=== PATIENT | female | born 1945 | race Caucasian/White ===

== ENCOUNTER → 2018-02-18 14:44 | Outpatient (CLI) | payer MEDICARE, BC, SELFPAY | PROVIDERS: PCP Family Medicine; Visit Provider Family Medicine | DX: M81.0 Age-related osteoporosis without current pathological fracture (principal); Z78.0 Asymptomatic menopausal state; E07.9 Disorder of thyroid, unspecified; E11.9 Type 2 diabetes mellitus without complications; Z82.62 Family history of osteoporosis | CPT/HCPCS: 77080 ==

== ENCOUNTER 2018-05-25 18:29 | Emergency (ER) | payer MEDICARE, BC, SELFPAY ==
[2018-05-25 18:45] VITALS: BP 169/84; PULSE 69; RESP 20; TEMP 36.9; O2SAT 96
--- NOTE | 2018-05-25 19:17 | DI.RAD.S_ITS ---
PROCEDURE: XR ACUTE ABDOMEN SERIES INDICATIONS: nausea/abdominal pain/constipation TECHNIQUE: One view chest and two views of the abdomen were acquired. COMPARISON: None. FINDINGS: Surgical changes and devices: None. Chest: Lungs are clear. The lung volumes are large and the diaphragms are flattened suggesting emphysema. Heart size is normal. No pleural effusions. No pneumoperitoneum. Abdomen: Bowel gas pattern is normal. No suspicious calcifications. Visualized solid organ contours appear normal. Bones: No suspicious bony lesions. IMPRESSION: 1. No acute cardiopulmonary findings. Emphysematous change. 2. No acute intra-abdominal findings. Dictated by: Corin Nunez M.D. on 05/25/2018 at 20:05 Approved by: Corin Nunez M.D. on 05/25/2018 at 20:06
[2018-05-25 19:36] LABS: Add Manual Diff / Slide Review NO; Basophils Percent Auto 0.9 % (0-2); Eosinophils Percent Auto 1.3 % (2-4); Hematocrit 38.1 % (36-46); Hemoglobin 12.8 g/dL (12.0-16.0); Lymphocytes Percent Auto 27.2 % (25-40); Mean Corpuscular HGB Conc 33.6 % (30-36); Mean Corpuscular Hemoglobin 29.5 PG (26-34); Monocytes Percent Auto 6.9 % (3-14); Neutrophils Absolute Auto 6600 /uL (3000-5900); Neutrophils Percent Auto 63.7 % (50-75); Platelet Count 348 X10^3/uL (150-400); Red Blood Cell Count 4.33 X10^6/uL (4.0-5.2); Red Cell Distribution Width 13.7 % (11.6-14.8); White Blood Cell Count 10.4 X10^3/uL (4.5-11.0)
[2018-05-25 19:41] VITALS: BP 183/86
[2018-05-25 19:43] LABS: Bacteria Urine None Seen; RBC Urine None Seen (0-5/HPF); WBC Urine None Seen (0-5/HPF)
[2018-05-25 19:44] LABS: Appearance Urine UA CLEAR; Bilirubin Urine UA NEGATIVE (NEGATIVE); Color Urine UA YELLOW; Glucose Urine UA NEGATIVE (Normal); Ketones Urine UA NEGATIVE (NEGATIVE); Leukocyte Esterase Urine UA NEGATIVE (NEGATIVE); Nitrite Urine UA NEGATIVE (Negative); Occult Blood Urine UA NEGATIVE (Negative); Protein Urine UA NEGATIVE (Negative); Urobilinogen Urine UA 0.2 E.U./dL (0.2)
[2018-05-25 19:50] LABS: Culture Indicated Urine Cult Not Indicated; Squamous Epithelial Cell Urine 0-1 /HPF; Urine Comments Microscopic Normal
[2018-05-25 19:52] LABS: Alanine Aminotransferase 20 IU/L (9-52); Albumin 4.9 g/dL (3.5-5.0); Albumin Globulin Ratio 1.3 (1.0-2.8); Alkaline Phosphatase 87 U/L (38-126); Aspartate Aminotransferase 29 IU/L (14-36); Bilirubin Total 0.5 mg/dL (0.2-1.3); Blood Urea Nitrogen 14 mg/dL (7-17); Carbon Dioxide 20 mmol/L (22-32); Chloride 102 mmol/L (98-107); Estimated Glomerular Filt Rate > 60.0 mL/min (>60); Globulin 3.8 g/dL (1.7-4.1); Glucose 123 mg/dL (80-110); HEMOLYSIS 36 (0-50); Potassium 4.3 mmol/L (3.4-5.1); Sodium 138 mmol/L (137-145); Total Protein 8.7 g/dL (6.3-8.2)
[2018-05-25 19:53] VITALS: PULSE 70; RESP 14; O2SAT 98
[2018-05-25 20:06] LABS: Troponin I < 0.012 ng/mL (0.01-0.034)
--- NOTE | 2018-05-25 20:13 | ED_ITS ---
HPI - General Adult General Chief complaint: Hypertension Stated complaint: elevated BP,stomach pain,back pain,constipated Time Seen by Provider: 05/25/18 20:10 Source: patient Mode of arrival: ambulatory Limitations: no limitations History of Present Illness HPI narrative: patient is a 72-year-old female presents with a variety of complaints. Her biggest complaint seems to be her right-sided back pain which started today. It hurts every time she breathes or moves. She denies chest pain or shortness of breath. She says sometimes she takes a shallow breath because a hurts. She denies any injury. She also has his abdominal discomfort. she feels like she has been constipated she has been taking MiraLax she had bowel movement which she said was not normal but she is moving things through. She was followed by GI at [facility] for some time. She feels like her abdomen is slightly bloated she denies any previous surgery nausea or vomiting. She has not had any fever or chills. Related Data Home Medications Medication Instructions Recorded Confirmed warfarin mg PO SEE INSTRUCTIONS #0 05/02/11 LEVOTHYROXINE SODIUM (SYNTHROID) 0.75 mcg PO Q DAY #0 10/22/11 amlodipine [Norvasc] 5 mg PO QDAY #0 06/29/17 calcium carbonate-vitamin D3 PO TID #0 06/29/17 [Oyster Shell Calcium-Vit D3] pantoprazole 20 mg PO QDAY #0 06/29/17 Previous Rx's Medication Instructions Recorded tramadol 0 tab PO Q6HP PRN #20 tab 06/29/17 Allergies Allergy/AdvReac Type Severity Reaction Status Date / Time bacitracin Allergy Unknown Unverified 11/04/17 12:10 [From NEOSPORIN ([id number])] codeine [CODEINE] Allergy Unknown Unverified 11/04/17 12:10 morphine [MORPHINE] Allergy Unknown Unverified 11/04/17 12:10 neomycin Allergy Unknown Unverified 11/04/17 12:10 [From NEOSPORIN ([id number])] polymyxin B Allergy Unknown Unverified 11/04/17 12:10 [From NEOSPORIN ([id number])] Review of Systems Review of Systems All systems reviewed & are unremarkable except as noted in HPI and below Constitutional Denies chills, Denies fatigue, Denies fever(s), Denies lethargy and Denies weakness Cardiovascular Reports as per HPI Respiratory Reports as per HPI Gastrointestinal Gastrointestinal: Reports as per HPI Musculoskeletal Denies back pain, Denies muscle weakness, Denies numbness and Denies tingling Integumentary/Breasts Denies pruritus, Denies erythema, Denies rash and Denies wounds Neurologic Denies numbness, Denies tingling and Denies weakness Endocrine Denies fatigue and Denies flushing [facility] Medical History Hyperlipidemia (Acute) Hypertension (Acute) Exam Initial Vital Signs Initial Vital Signs: Vital Signs Temperature 98.4 F 05/25/18 18:45 Pulse Rate 69 05/25/18 18:45 Respiratory Rate 20 05/25/18 18:45 Blood Pressure 169/84 H 05/25/18 18:45 Pulse Oximetry 96 05/25/18 18:45 GENERAL: Alert well-appearing elderly female. HEENT: Head atraumatic,EOMI, pupils reactive, face symmetric, BACK: No midline vertebral tenderness no step-offs no sign of trauma she is tender on her right thoracic rib area. CARDIOVASCULAR: Regular rate and rhythm without murmurs, rubs or gallops. RESPIRATORY: Breath sounds equal bilaterally, no wheezes rales or rhonchi. ABDOMEN: Soft, Slightly distended no guarding no rebound nontender no right upper quadrant pain : No CVA tenderness EXTREMITIES: Normal range of motion, no clubbing or edema. Neurovascularly intact NEUROLOGICAL: Alert and oriented x4.Normal gait and speech. Cranial nerves II through XII grossly intact. SKIN: Warm, dry, no laceration, no petechiae, no rashes or lesions. Course Orders Ordered: Discontinued Medications Acetaminophen (Tylenol) 650 mg PO NOW ONE Stop: 05/25/18 20:40 Last Admin: 05/25/18 21:02 Dose: 650 mg Vital Signs - 8 hr 05/25/18 18:45 05/25/18 19:41 05/25/18 19:53 Temperature 98.4 F Pulse Rate 69 70 Respiratory Rate 20 14 Blood Pressure 169/84 H Blood Pressure [Right Arm] 183/86 H Pulse Oximetry 96 98 Medical Decision Making Lab Data Lab results reviewed: Yes I reviewed the patient's lab results. Result diagrams: 05/25/18 19:22 05/25/18 19:22 Lab Results 05/25/18 05/25/18 05/25/18 Range/Units 19:22 19:22 19:22 WBC 10.4 (4.5-11.0) X10^3/uL RBC 4.33 (4.0-5.2) X10^6/uL Hgb 12.8 (12.0-16.0) g/dL Hct 38.1 (36-46) % MCV 88.0 (80-100) fL MCH 29.5 (26-34) PG MCHC 33.6 (30-36) % RDW 13.7 (11.6-14.8) % Plt Count 348 (150-400) X10^3/uL Neut % (Auto) 63.7 (50-75) % Lymph % (Auto) 27.2 (25-40) % Grant % (Auto) 6.9 (3-14) % Eos % (Auto) 1.3 L (2-4) % Baso % (Auto) 0.9 (0-2) % Neut # (Auto) 6600 H (4957-8565) /uL Sodium 138 (137-145) mmol/L Potassium 4.3 (3.4-5.1) mmol/L Chloride 102 (98-107) mmol/L Carbon Dioxide 20 L (22-32) mmol/L BUN 14 (7-17) mg/dL Creatinine 0.70 (0.52-1.04) mg/dL Estimated GFR > 60.0 (>60) mL/min BUN/Creatinine Ratio 20.0 (6-22) Glucose 123 H (80-110) mg/dL Calcium 10.0 (8.4-10.2) mg/dL Total Bilirubin 0.5 (0.2-1.3) mg/dL AST 29 (14-36) IU/L ALT 20 (9-52) IU/L Alkaline Phosphatase 87 (38-126) U/L Troponin I < 0.012 (0.01-0.034) ng/mL Total Protein 8.7 H (6.3-8.2) g/dL Albumin 4.9 (3.5-5.0) g/dL Globulin 3.8 (1.7-4.1) g/dL Albumin/Globulin Ratio 1.3 (1.0-2.8) Lipase 155 (23-300) U/L Urine Color Urine Appearance Urine pH (4.5-8.0) Ur Specific [place] (1.000-1.035) Urine Protein (Negative) Urine Glucose (UA) (Normal) g/dL Urine Ketones (NEGATIVE) Urine Occult Blood (Negative) Urine Nitrate (Negative) Urine Bilirubin (NEGATIVE) Urine Urobilinogen (0.2) E.U./dL Ur Leukocyte Esterase (NEGATIVE) Urine RBC (0-5/HPF) Urine WBC (0-5/HPF) Ur Squamous Epith Cells Urine Bacteria (None) Ur Culture Indicated? Micro UA Comment 05/25/18 Range/Units Unknown WBC (4.5-11.0) X10^3/uL RBC (4.0-5.2) X10^6/uL Hgb (12.0-16.0) g/dL Hct (36-46) % MCV (80-100) fL MCH (26-34) PG MCHC (30-36) % RDW (11.6-14.8) % Plt Count (150-400) X10^3/uL Neut % (Auto) (50-75) % Lymph % (Auto) (25-40) % Grant % (Auto) (3-14) % Eos % (Auto) (2-4) % Baso % (Auto) (0-2) % Neut # (Auto) (6995-1366) /uL Sodium (137-145) mmol/L Potassium (3.4-5.1) mmol/L Chloride (98-107) mmol/L Carbon Dioxide (22-32) mmol/L BUN (7-17) mg/dL Creatinine (0.52-1.04) mg/dL Estimated GFR (>60) mL/min BUN/Creatinine Ratio (6-22) Glucose (80-110) mg/dL Calcium (8.4-10.2) mg/dL Total Bilirubin (0.2-1.3) mg/dL AST (14-36) IU/L ALT (9-52) IU/L Alkaline Phosphatase (38-126) U/L Troponin I (0.01-0.034) ng/mL Total Protein (6.3-8.2) g/dL Albumin (3.5-5.0) g/dL Globulin (1.7-4.1) g/dL Albumin/Globulin Ratio (1.0-2.8) Lipase (23-300) U/L Urine Color Yellow Urine Appearance Clear Urine pH 7.0 (4.5-8.0) Ur Specific [place] 1.010 (1.000-1.035) Urine Protein Negative (Negative) Urine Glucose (UA) Negative (Normal) g/dL Urine Ketones Negative (NEGATIVE) Urine Occult Blood Negative (Negative) Urine Nitrate Negative (Negative) Urine Bilirubin Negative (NEGATIVE) Urine Urobilinogen 0.2 (0.2) E.U./dL Ur Leukocyte Esterase Negative (NEGATIVE) Urine RBC None seen (0-5/HPF) Urine WBC None seen (0-5/HPF) Ur Squamous Epith Cells 0-1 /hpf Urine Bacteria None seen (None) Ur Culture Indicated? Cult not indicated Micro UA Comment Microscopic normal Imaging Data XR chest ab: Radiologist's impression: PROCEDURE: XR ACUTE ABDOMEN SERIES INDICATIONS: nausea/abdominal pain/constipation TECHNIQUE: One view chest and two views of the abdomen were acquired. COMPARISON: None. FINDINGS: Surgical changes and devices: None. Chest: Lungs are clear. The lung volumes are large and the diaphragms are flattened suggesting emphysema. Heart size is normal. No pleural effusions. No pneumoperitoneum. Abdomen: Bowel gas pattern is normal. No suspicious calcifications. Visualized solid organ contours appear normal. Bones: No suspicious bony lesions. IMPRESSION: 1. No acute cardiopulmonary findings. Emphysematous change. 2. No acute intra-abdominal findings. Dictated by: Corin Nunez M.D. on 05/25/2018 at 20:05 CT scan - abdomen: Radiologist's impression: PROCEDURE: CT ABDOMEN PELVIS W CON INDICATIONS: Abdomen bloating and pain. TECHNIQUE: After the administration of intravenous contrast, 5 mm thick sections acquired from the diaphragm to the symphysis. 5 mm coronal and sagittal reformats were acquired. For radiation dose reduction, the following was used: automated exposure control, adjustment of mA and/or kV according to patient size. COMPARISON: [facility], CT, CT ABD PELVIS W CON, 09/05/2016, 19:01. [facility], CT, ABDOMEN WITH CONTRAST, 11/07/2011, 11:57. [facility], CT, ABDOMEN/PELVIS WITH CONTRAST, 10/04/2016, 18:28. FINDINGS: Image quality: Excellent. ABDOMEN: Lung bases: Lung bases are clear. Heart size is normal. Solid organs: Liver is normal in size and enhancement. Gallbladder is mildly contracted. Biliary system is non dilated. Pancreas enhances normally. Spleen is normal in size and enhancement. There is trace calcification of the lateral aspect of the splenic capsule unchanged from the study dated . No adrenal nodules. Kidneys demonstrate normal size and enhancement, without hydronephrosis. Peritoneum and bowel: Bowel loops demonstrate normal wall thickness and caliber. The appendix is not visualized; however there is no discrete right lower quadrant fluid or fat stranding to suggest acute appendicitis. There are scattered sigmoid diverticula. No evidence for diverticulitis. No free fluid or air. Nodes and vessels: No retroperitoneal or mesenteric adenopathy by size criteria. Aorta and inferior vena cava are normal in size. There are scattered atheromatous calcifications throughout the aorta and iliac arteries bilaterally. Miscellaneous: No ventral hernias. PELVIS: Genitourinary: Bladder wall thickness is normal. Miscellaneous: No inguinal hernias or adenopathy. Bones: No suspicious bony lesions. Severe wedge compression deformities are redemonstrated throughout the thoracolumbar spine. These are similar in extent to the study dated 09/05/16. IMPRESSION: 1. No acute intra-abdominal findings. The appendix is not visualized; however there are no ancillary findings to suggest acute appendicitis. 2. Diverticulosis. No acute diverticulitis. Dictated by: Corin Nunez M.D. on 05/25/2018 at 21:05 Approved by: Corin Nunez M.D. on 05/25/2018 at 21:13 MDM Narrative Medical decision making narrative: Patient overall is feeling better. pain is reproducible to touch worse with movement and breathing consistent with musculoskeletal. She has had chronic ongoing abdominal issues have been worked up by GI Discharge Plan Departure Patient Disposition: Home Clinical Impression: Acute costochondritis Discharge Date/Time: 05/25/18 21:55 Interventions: ED Discharge Assessment Last Done: 05/25/18 21:55 Instructions: Costochondritis Activity Restrictions/Additional Instructions: *You have been diagnosed with costochondritis *What to do: back pain is likely related to a rib strain and inflammation. blood work, chest x-ray and CT scan of abdomen are reassuring *Continue to take medications as directed Tylenol 650 mg every 4 hr if needed for pain *Follow up with your primary care provider in 2-3 days *Return to ER if you should have worsening pain, fever, heart palpitations, any new, worsening or concerning symptoms Prescriptions: No Action warfarin 4 MG tablet PO SEE INSTRUCTIONS Qty: 0 RF: 0 LEVOTHYROXINE SODIUM (SYNTHROID) 0.75 mcg PO Q DAY Qty: 0 RF: 0 pantoprazole 20 MG tablet,delayed release (DR/EC) 20 mg PO QDAY Qty: 0 RF: 0 amlodipine [Norvasc] 5 MG tablet 5 mg PO QDAY Qty: 0 RF: 0 calcium carbonate-vitamin D3 [Oyster Shell Calcium-Vit D3] 500 mg(1,250mg) - 200 unit Tablet PO TID Qty: 0 RF: 0 tramadol 50 MG tablet PO Q6HP PRNQty: 20 RF: 0 Referrals: Americo Fermin MD [Primary Care Provider] -
--- NOTE | 2018-05-25 20:39 | DI.CT.S_ITS ---
PROCEDURE: CT ABDOMEN PELVIS W CON INDICATIONS: Abdomen bloating and pain. TECHNIQUE: After the administration of intravenous contrast, 5 mm thick sections acquired from the diaphragm to the symphysis. 5 mm coronal and sagittal reformats were acquired. For radiation dose reduction, the following was used: automated exposure control, adjustment of mA and/or kV according to patient size. COMPARISON: [facility], CT, CT ABD PELVIS W CON, 09/05/2016, 19:01. [facility], CT, ABDOMEN WITH CONTRAST, 11/07/2011, 11:57. [facility], CT, ABDOMEN/PELVIS WITH CONTRAST, 10/04/2016, 18:28. FINDINGS: Image quality: Excellent. ABDOMEN: Lung bases: Lung bases are clear. Heart size is normal. Solid organs: Liver is normal in size and enhancement. Gallbladder is mildly contracted. Biliary system is non dilated. Pancreas enhances normally. Spleen is normal in size and enhancement. There is trace calcification of the lateral aspect of the splenic capsule unchanged from the study dated . No adrenal nodules. Kidneys demonstrate normal size and enhancement, without hydronephrosis. Peritoneum and bowel: Bowel loops demonstrate normal wall thickness and caliber. The appendix is not visualized; however there is no discrete right lower quadrant fluid or fat stranding to suggest acute appendicitis. There are scattered sigmoid diverticula. No evidence for diverticulitis. No free fluid or air. Nodes and vessels: No retroperitoneal or mesenteric adenopathy by size criteria. Aorta and inferior vena cava are normal in size. There are scattered atheromatous calcifications throughout the aorta and iliac arteries bilaterally. Miscellaneous: No ventral hernias. PELVIS: Genitourinary: Bladder wall thickness is normal. Miscellaneous: No inguinal hernias or adenopathy. Bones: No suspicious bony lesions. Severe wedge compression deformities are redemonstrated throughout the thoracolumbar spine. These are similar in extent to the study dated 09/05/16. IMPRESSION: 1. No acute intra-abdominal findings. The appendix is not visualized; however there are no ancillary findings to suggest acute appendicitis. 2. Diverticulosis. No acute diverticulitis. Dictated by: Corin Nunez M.D. on 05/25/2018 at 21:05 Approved by: Corin Nunez M.D. on 05/25/2018 at 21:13
[2018-05-25 20:51] LABS: Lipase 155 U/L (23-300)
[2018-05-25] MEDS: ACETAMINOPHEN 325 MG TABLET 650 MG PO (21:02)
[2018-05-25 21:48] VITALS: BP 161/77; PULSE 75; RESP 24; O2SAT 96
== END 2018-05-25 21:55 | disposition home or self-care (01) ==
PROVIDERS: Emergency Provider Emergency Medicine; PCP Family Medicine
DX: M94.0 Chondrocostal junction syndrome [Tietze] (principal)
CPT/HCPCS: 36591; 74022; 74177; 80053; 81001; 83690; 84484; 85025; 93005; 99283; 99285; Q9967

== ENCOUNTER → 2018-10-15 16:18 | Outpatient (REF) | payer MEDICARE, BC, SELFPAY ==
[2018-10-15 16:34] LABS: INR 2.3 (0.9-1.3); Prothrombin Time 26.9 SECONDS (10.1-12.7)
== END ==
LOC: LAB 16:18
PROVIDERS: PCP Family Medicine; Visit Provider Family Medicine
DX: Z79.01 Long term (current) use of anticoagulants (principal)
CPT/HCPCS: 85610

== ENCOUNTER → 2018-11-10 11:14 | Outpatient (REF) | payer MEDICARE, OTHER, SELFPAY ==
[2018-11-10 11:29] LABS: INR 3.6 (0.9-1.3)
== END ==
LOC: LAB 11:14
PROVIDERS: PCP Family Medicine; Visit Provider Family Medicine
DX: Z79.01 Long term (current) use of anticoagulants (principal); J02.9 Acute pharyngitis, unspecified
CPT/HCPCS: 85610

== ENCOUNTER → 2018-12-08 11:52 | Outpatient (ROUT) | payer MEDICARE, OTHER, SELFPAY ==
[2018-12-08 12:33] LABS: INR 3.1 (0.9-1.3); Prothrombin Time 36.1 SECONDS (10.1-12.7)
== END ==
PROVIDERS: PCP Family Medicine; Visit Provider Family Medicine
DX: Z79.01 Long term (current) use of anticoagulants (principal)
CPT/HCPCS: 85610

== ENCOUNTER → 2018-12-17 09:51 | Outpatient (CLI) | payer MEDICARE, OTHER, SELFPAY ==
--- NOTE | 2018-12-17 | DI.MG.S_ITS ---
BILATERAL DIGITAL SCREENING MAMMOGRAM 3D/2D WITH CAD: 12/17/2018 CLINICAL: Routine screening. Comparison is made to exams dated: 08/28/2017 mammogram, 08/22/2016 mammogram, 08/17/2015 mammogram, and 08/16/2014 mammogram - [facility]. The tissue of both breasts is heterogeneously dense. This may lower the sensitivity of mammography. Current study was also evaluated with a Computer Aided Detection (CAD) system. There are benign vascular calcifications in both breasts. No significant masses, calcifications, or other findings are seen in either breast. There has been no significant interval change. IMPRESSION: There is no mammographic evidence of malignancy. A 1 year screening mammogram is recommended. This exam was interpreted at Station ID: [id number]. NOTE: For mammograms, a report in lay terms will be sent to the patient. Approximately 15% of breast malignancies will not be visualized mammographically. In the management of a palpable breast mass, a negative mammogram must not discourage biopsy of a clinically suspicious lesion. Electronically Signed By: Danny sabillon/divina:12/17/2018 12:05:23 letter sent: Normal Exam ACR BI-RADS Category 2: Benign Finding(s) [id number]
== END ==
PROVIDERS: PCP Family Medicine; Visit Provider Family Medicine
DX: Z12.31 Encounter for screening mammogram for malignant neoplasm of breast (principal)
CPT/HCPCS: 77063; 77067

== ENCOUNTER → 2019-03-08 13:34 | Outpatient (CLI) | payer MEDICARE, OTHER, SELFPAY ==
[2019-03-11 14:10] LABS: Protein C Activity 9 % normal (70-180)
[2019-03-11 20:00] LABS: ANA Screen, IFA Positive (Negative); ANA Titer 1:40 titer (<1:40)
[2019-03-12 17:00] LABS: Cardiolipin Ab IgA < 11 APL; Cardiolipin Ab IgG < 14 GPL; Cardiolipin Ab IgM < 12 MPL; PTT-LA Screen 44 seconds (< OR = 40); dRVVT Screen 57 seconds (< OR = 45)
== END ==
PROVIDERS: PCP Internal Medicine; Visit Provider Internal Medicine
DX: I26.99 Other pulmonary embolism without acute cor pulmonale (principal)
CPT/HCPCS: 36415; 81240; 81241; 85303; 85306; 85597; 85613; 85730; 86038; 86147

== ENCOUNTER → 2019-05-20 12:36 | Outpatient (CLI) | payer MEDICARE, OTHER, SELFPAY ==
[2019-05-24 16:10] LABS: Protein C Activity 107 % normal (70-180)
[2019-05-25 02:55] LABS: Cardiolipin Ab IgA <11 APL; Cardiolipin Ab IgG <14 GPL; Cardiolipin Ab IgM <12 MPL
[2019-05-26 16:14] LABS: PTT-LA Screen 36 seconds (< OR = 40)
[2019-05-27 14:41] LABS: dDRVVT Screen 46 seconds (< OR = 45)
== END ==
PROVIDERS: PCP Internal Medicine; Visit Provider Internal Medicine
DX: I26.99 Other pulmonary embolism without acute cor pulmonale (principal)
CPT/HCPCS: 36415; 85303; 85306; 85597; 85613; 85730; 86147

== ENCOUNTER 2019-05-31 16:36 | Emergency (ER) | payer MEDICARE, OTHER, SELFPAY ==
[2019-05-31 16:47] VITALS: BP 192/90; PULSE 82; RESP 14; TEMP 36.7; O2SAT 97
[2019-05-31 17:26] LABS: Add Manual Diff / Slide Review NO; Basophils Absolute Auto 100 /uL (0-100); Eosinophils Absolute Auto 200 /uL (0-450); Eosinophils Percent Auto 2.2 % (2-4); Hematocrit 36.6 % (36-46); Hemoglobin 12.3 g/dL (12.0-16.0); Lymphocytes Absolute Auto 2200 /uL (1100-4500); Lymphocytes Percent Auto 21.2 % (25-40); Mean Corpuscular HGB Conc 33.6 % (30-36); Mean Corpuscular Hemoglobin 29.4 PG (26-34); Mean Corpuscular Volume 87.7 fL (80-100); Monocytes Absolute Auto 600 /uL (0-900); Neutrophils Absolute Auto 7200 /uL (1500-7000); Neutrophils Percent Auto 69.6 % (50-75); Platelet Count 339 X10^3/uL (150-400); Red Blood Cell Count 4.17 X10^6/uL (4.0-5.2); Red Cell Distribution Width 13.5 % (11.6-14.8); White Blood Cell Count 10.4 X10^3/uL (4.5-11.0)
--- NOTE | 2019-05-31 17:30 | ED_ITS ---
HPI - Dizziness <Halima Lewis, DO - Last Filed: 06/01/19 07:16> General Chief Complaint: Dizziness Stated Complaint: DIZZY WEAKNESS THROWING UP Time Seen by Provider: 05/31/19 17:13 Source: patient and family Mode of arrival: Wheelchair Limitations: no limitations History of Present Illness HPI Narrative: This is a 73-year-old female comes to the emergency department with feeling dizzy. She describes vertigo like symptoms with the room spinning particularly when she moves her head. She has had symptoms on and off for the past month. First episode was a month ago lasted several days and then went away. She also describes an episode of garbled speech that was about a month ago for a couple minutes. She states she has not had any more that but sometimes feels like she has to concentrate harder on what she needs to say. She has a headache today but she describes it is just feeling sort of funny, she does not describe it as severe. She feels weak but in both legs and in her arms. But she states she feels weaker in her legs and her arms. She does not appreciate any weakness on her right versus left. Denies any shortness of breath, denies any chest pain or pressure. She has felt nauseated and vomited on her way to the hospital denies any issues with abdominal pain, no diarrhea, no constipation. No urinary symptoms. On May 17 she had some sinusitis/bronchitis symptoms and was on amoxicillin which she finished yesterday. She felt a little bit worse today, sort of lightheaded like the room was spinning when she moves her head. She has a history of hypothyroid, pre diabetes with a hemoglobin A1c of 5.9, hypertension. Patient used to be on warfarin for PE. This was after surgery she developed a blood clot in the pulmonary emboli. She was on the Coumadin for several years and her primary care on all elected to stop it after evaluating her for genetic causes of her PE which she states were all negative. Related Data Home Medications Medication Instructions Recorded Confirmed levothyroxine 75 mcg PO DAILY #0 10/22/11 05/31/19 amlodipine [Norvasc] 5 mg PO DAILY #0 06/29/17 05/31/19 Probiotic 1 cap PO DAILY 05/31/19 05/31/19 acetaminophen 325 mg PO PRN PRN MDD 4000 mg 05/31/19 05/31/19 atenolol 50 mg PO BID 05/31/19 05/31/19 calcium citrate 1,000 mg PO DAILY 05/31/19 05/31/19 cholecalciferol (vitamin D3) 1,000 unit PO QPM 05/31/19 05/31/19 [Vitamin D3] losartan 100 mg PO QPM 05/31/19 05/31/19 metformin 1,000 mg PO DAILY 05/31/19 05/31/19 omeprazole magnesium [Prilosec OTC] 20 mg PO DAILY 05/31/19 05/31/19 Previous Rx's Medication Instructions Recorded meclizine 25 mg PO TID PRN #14 tab 05/31/19 Allergies Allergy/AdvReac Type Severity Reaction Status Date / Time bacitracin Allergy Unknown Verified 05/31/19 17:29 [From NEOSPORIN ([id number])] codeine [CODEINE] Allergy Unknown Verified 05/31/19 17:29 morphine [MORPHINE] Allergy Unknown Verified 05/31/19 17:29 neomycin Allergy Unknown Verified 05/31/19 17:29 [From NEOSPORIN ([id number])] polymyxin B Allergy Unknown Verified 05/31/19 17:29 [From NEOSPORIN ([id number])] Review of Systems <Halima Lewis DO - Last Filed: 06/01/19 07:16> Review of Systems ROS Unobtainable: All systems reviewed & are unremarkable except as noted in HPI and below Patient History <Halima Lewis DO - Last Filed: 06/01/19 07:16> Medical History (Updated 05/31/19 @ 22:34 by Ralph Thomson DO) Hyperlipidemia (Acute) Hypertension (Acute) Hypothyroid (Acute) Social History (Updated 05/31/19 @ 17:34 by Halima Lewis DO) marital status: Smoking Status: Never smoker substance use type: does not use Substance Use Type: does not use Exam <Halima Lewis DO - Last Filed: 06/01/19 07:16> Narrative Exam Narrative: GEN: well nourished, well appearing elderly, alert and oriented x 3, patient appears to be in mild distress. HEENT: Atraumatic, pupils are equal round reactive to light, extraocular movements are intact, no nystagmus, nares are clear, TMs are clear with no fluid, there is no conjunctival pallor. Throat is clear without any exudates, erythema, tonsillar enlargement or uvular deviation, no facial droop. HEART: Regular rate and rhythm without murmur, clicks, rubs. Pulses are equal in upper and lower extremities LUNGS:Lungs clear to auscultation, no wheezes, rales, crackles, chest moves symmetrically ABD:bowel sounds normal, soft, non-tender, no guarding, rebound, rigidity, no masses noted, no hepatosplenomegaly :No CVA tenderness MSCL: Non-tender, no muscle atrophy, muscles strength 5/5 upper and lower extremities, full range of motion NEURO:CN 2-12 intact, sensation normal, reflexes 2/4 upper and lower extremities. finger nose finger test normal, heel devlin test normal SKIN: no rash, no petechiae. Initial Vital Signs Initial Vital Signs: Vital Signs Temperature 98.1 F 05/31/19 16:47 Pulse Rate 82 05/31/19 16:47 Respiratory Rate 14 05/31/19 16:47 Blood Pressure 192/90 H 05/31/19 16:47 Pulse Oximetry 97 05/31/19 16:47 <Ralph Thomson, DO - Last Filed: 05/31/19 22:35> Initial Vital Signs Initial Vital Signs: Vital Signs Temperature 98.1 F 05/31/19 16:47 Pulse Rate 82 05/31/19 16:47 Respiratory Rate 14 05/31/19 16:47 Blood Pressure 192/90 H 05/31/19 16:47 Pulse Oximetry 97 05/31/19 16:47 Scores <Halima Lewis, DO - Last Filed: 06/01/19 07:16> NIH Stroke Scale Level of Conciousness: Alert, keenly responsive Ask month/age: Answers both questions correctly. Open/close eyes, close hand: Performs both tasks correctly Best gaze horizontal: Normal Visual may[place]: No visual loss Facial palsy: Normal symetrical movement Left arm drift: No drift for full 10 sec Right arm drift: No drift for full 10 sec Left leg drift: No drift for full 10 sec Right leg drift: No drift for full 10 sec Limb ataxia: Absent Sensory on face/arms/legs: Normal, no sensory loss Best language: No aphasia, normal Dysarthria: Normal Extinction or inattention: No abnormality Total NIH Stroke scale score: 0 Course <Halima Lewis DO - Last Filed: 06/01/19 07:16> Orders Ordered: Discontinued Medications Sodium Chloride (Normal Saline 0.9%) 1,000 mls @ 1,000 mls/hr IV BOLUS ONE Stop: 05/31/19 18:26 Last Infusion: 05/31/19 19:37 Dose: 0 mls/hr Documented by: Admin: 05/31/19 17:59 Dose: 1,000 mls/hr Documented by: CM Meclizine HCl (Antivert) 25 mg PO NOW ONE Stop: 05/31/19 19:19 Last Admin: 05/31/19 19:41 Dose: 25 mg Documented by: JIMMY Ondansetron HCl (Zofran) 4 mg IV NOW ONE Stop: 05/31/19 17:28 Last Admin: 05/31/19 18:00 Dose: 4 mg Documented by: CM Ondansetron HCl (Zofran Odt Prepack) 1 bottle MISC SEEINSTR ONE Stop: 05/31/19 20:53 Last Admin: 05/31/19 21:05 Dose: 1 bottle Documented by: JIMMY Vital Signs Vital signs: Vital Signs - 8 hr 05/31/19 16:47 05/31/19 18:38 05/31/19 19:00 Temperature 98.1 F Pulse Rate 82 89 94 H Respiratory Rate 14 19 19 Blood Pressure 192/90 H Blood Pressure [Right Arm] 176/93 H 207/85 H Pulse Oximetry 97 96 95 05/31/19 19:30 05/31/19 20:15 Temperature Pulse Rate 97 H 93 H Respiratory Rate 19 17 Blood Pressure Blood Pressure [Right Arm] 185/90 H 141/86 H Pulse Oximetry 95 94 <Ralph Thomson DO - Last Filed: 05/31/19 22:35> Orders Ordered: Discontinued Medications Sodium Chloride (Normal Saline 0.9%) 1,000 mls @ 1,000 mls/hr IV BOLUS ONE Stop: 05/31/19 18:26 Last Infusion: 05/31/19 19:37 Dose: 0 mls/hr Documented by: Admin: 05/31/19 17:59 Dose: 1,000 mls/hr Documented by: CM Meclizine HCl (Antivert) 25 mg PO NOW ONE Stop: 05/31/19 19:19 Last Admin: 05/31/19 19:41 Dose: 25 mg Documented by: JIMMY Ondansetron HCl (Zofran) 4 mg IV NOW ONE Stop: 05/31/19 17:28 Last Admin: 05/31/19 18:00 Dose: 4 mg Documented by: CM Ondansetron HCl (Zofran Odt Prepack) 1 bottle MISC SEEINSTR ONE Stop: 05/31/19 20:53 Last Admin: 05/31/19 21:05 Dose: 1 bottle Documented by: JIMMY Vital Signs Vital signs: Vital Signs - 8 hr 05/31/19 16:47 05/31/19 18:38 05/31/19 19:00 Temperature 98.1 F Pulse Rate 82 89 94 H Respiratory Rate 14 19 19 Blood Pressure 192/90 H Blood Pressure [Right Arm] 176/93 H 207/85 H Pulse Oximetry 97 96 95 05/31/19 19:30 05/31/19 20:15 Temperature Pulse Rate 97 H 93 H Respiratory Rate 19 17 Blood Pressure Blood Pressure [Right Arm] 185/90 H 141/86 H Pulse Oximetry 95 94 MDM - Dizziness <Halima Lewis DO - Last Filed: 06/01/19 07:16> Lab Data Result diagrams: 05/31/19 17:20 05/31/19 17:20 Labs: Lab Results 05/31/19 05/31/19 05/31/19 Range/Units 17:20 17:20 17:20 WBC 10.4 (4.5-11.0) X10^3/uL RBC 4.17 (4.0-5.2) X10^6/uL Hgb 12.3 (12.0-16.0) g/dL Hct 36.6 (36-46) % MCV 87.7 (80-100) fL MCH 29.4 (26-34) PG MCHC 33.6 (30-36) % RDW 13.5 (11.6-14.8) % Plt Count 339 (150-400) X10^3/uL Neut % (Auto) 69.6 (50-75) % Lymph % (Auto) 21.2 L (25-40) % [place] % (Auto) 6.0 (3-14) % Eos % (Auto) 2.2 (2-4) % Baso % (Auto) 1.0 (0-2) % Neut # (Auto) 7200 H (8667-1883) /uL Lymph # (Auto) 2200 (2352-1633) /uL [place] # (Auto) 600 (0-900) /uL Eos # (Auto) 200 (0-450) /uL Baso # (Auto) 100 (0-100) /uL PT 11.1 (10.1-12.7) SECONDS INR 1.0 (0.9-1.3) APTT 30 (26.4-36.2) SECONDS Sodium 131 L (137-145) mmol/L Potassium 3.9 (3.4-5.1) mmol/L Chloride 95 L (98-107) mmol/L Carbon Dioxide 23 (22-32) mmol/L BUN 16 (7-17) mg/dL Creatinine 0.50 L (0.52-1.04) mg/dL Estimated GFR > 60.0 (>60) mL/min BUN/Creatinine Ratio 32.0 H (6-22) Glucose 139 H (80-110) mg/dL Calcium 9.6 (8.4-10.2) mg/dL Total Bilirubin 0.3 (0.2-1.3) mg/dL AST 31 (14-36) IU/L ALT 15 (<35) IU/L Alkaline Phosphatase 123 (38-126) U/L Total Creatine Kinase 53 (30-135) U/L CK-MB (CK-2) TNP CK-MB (CK-2) Rel Index TNP Troponin I < 0.012 (0.01-0.034) ng/mL Total Protein 8.5 H (6.3-8.2) g/dL Albumin 4.8 (3.5-5.0) g/dL Globulin 3.7 (1.7-4.1) g/dL Albumin/Globulin Ratio 1.3 (1.0-2.8) Urine RBC (0-5/HPF) Urine WBC (0-5/HPF) Ur Squamous Epith Cells (0-5/HPF) Amorphous Sediment Urine Bacteria (None) Ur Culture Indicated? U Morph 300 ng/mL cutoff (Negative) Ur Oxycodone Screen (Negative) Urine Methadone Screen (Negative) Ur Barbiturates Screen (Negative) U Tricyclic Antidepress (Negative) Ur Phencyclidine Scrn (Negative) Ur Amphetamines Screen (Negative) U Methamphetamines Scrn (Negative) Ur MDMA Scrn (Ecstasy) (Negative) U Benzodiazepines Scrn (Negative) Urine Cocaine Screen (Negative) U Marijuana (THC) Screen (Negative) 05/31/19 05/31/19 Range/Units 18:23 18:23 WBC (4.5-11.0) X10^3/uL RBC (4.0-5.2) X10^6/uL Hgb (12.0-16.0) g/dL Hct (36-46) % MCV (80-100) fL MCH (26-34) PG MCHC (30-36) % RDW (11.6-14.8) % Plt Count (150-400) X10^3/uL Neut % (Auto) (50-75) % Lymph % (Auto) (25-40) % [place] % (Auto) (3-14) % Eos % (Auto) (2-4) % Baso % (Auto) (0-2) % Neut # (Auto) (2118-8756) /uL Lymph # (Auto) (9744-7889) /uL [place] # (Auto) (0-900) /uL Eos # (Auto) (0-450) /uL Baso # (Auto) (0-100) /uL PT (10.1-12.7) SECONDS INR (0.9-1.3) APTT (26.4-36.2) SECONDS Sodium (137-145) mmol/L Potassium (3.4-5.1) mmol/L Chloride (98-107) mmol/L Carbon Dioxide (22-32) mmol/L BUN (7-17) mg/dL Creatinine (0.52-1.04) mg/dL Estimated GFR (>60) mL/min BUN/Creatinine Ratio (6-22) Glucose (80-110) mg/dL Calcium (8.4-10.2) mg/dL Total Bilirubin (0.2-1.3) mg/dL AST (14-36) IU/L ALT (<35) IU/L Alkaline Phosphatase (38-126) U/L Total Creatine Kinase (30-135) U/L CK-MB (CK-2) CK-MB (CK-2) Rel Index Troponin I (0.01-0.034) ng/mL Total Protein (6.3-8.2) g/dL Albumin (3.5-5.0) g/dL Globulin (1.7-4.1) g/dL Albumin/Globulin Ratio (1.0-2.8) Urine RBC None seen (0-5/HPF) Urine WBC 1-5/hpf (0-5/HPF) Ur Squamous Epith Cells 0-1 /hpf (0-5/HPF) Amorphous Sediment 1+ Urine Bacteria Occasional (0-1) (None) Ur Culture Indicated? Specimen cultured U Morph 300 ng/mL cutoff Negative (Negative) Ur Oxycodone Screen Negative (Negative) Urine Methadone Screen Negative (Negative) Ur Barbiturates Screen Negative (Negative) U Tricyclic Antidepress Negative (Negative) Ur Phencyclidine Scrn Negative (Negative) Ur Amphetamines Screen Negative (Negative) U Methamphetamines Scrn Negative (Negative) Ur MDMA Scrn (Ecstasy) Negative (Negative) U Benzodiazepines Scrn Negative (Negative) Urine Cocaine Screen Negative (Negative) U Marijuana (THC) Screen Negative (Negative) Urine Dip Bedside Urine Glucose Negative Bedside Urine Bilirubin - Negative Bedside Urine Ketone - Negative Urine Specific [place] 1.010 Bedside Urine Occult Blood - Negative Bedside Urine pH 6.0 Bedside Urine Protein +/- 15 Bedside Urine Urobilinogen - Negative Bedside Urine Nitrite - Negative Bedside Urine Leukocytes +/- 15 Esterase ECG Data Attestation: I personally reviewed and interpreted this ECG as follows: Prior ECG tracings: available for review Interpretation: Sinus rhythm rate of 77 P are 206 QRS of 92 QTC of 410. No ST elevation appreciated. Patient has prior EKG from 05/25/2020 which appears similar. [facility] Narrative Medical decision making narrative: Patient signed out to Dr. Thomson while imaging and labs are pending for final disposition. Patient has vertigo type symptoms today with neurologic changes. She has had prior episode of garbled speech for several minutes one month ago. <Ralph Thomson, DO - Last Filed: 05/31/19 22:35> Lab Data Attestation: I reviewed the patient's lab results. Labs: Lab Results 05/31/19 05/31/19 05/31/19 Range/Units 17:20 17:20 17:20 WBC 10.4 (4.5-11.0) X10^3/uL RBC 4.17 (4.0-5.2) X10^6/uL Hgb 12.3 (12.0-16.0) g/dL Hct 36.6 (36-46) % MCV 87.7 (80-100) fL MCH 29.4 (26-34) PG MCHC 33.6 (30-36) % RDW 13.5 (11.6-14.8) % Plt Count 339 (150-400) X10^3/uL Neut % (Auto) 69.6 (50-75) % Lymph % (Auto) 21.2 L (25-40) % [place] % (Auto) 6.0 (3-14) % Eos % (Auto) 2.2 (2-4) % Baso % (Auto) 1.0 (0-2) % Neut # (Auto) 7200 H (9670-9172) /uL Lymph # (Auto) 2200 (5327-4402) /uL [place] # (Auto) 600 (0-900) /uL Eos # (Auto) 200 (0-450) /uL Baso # (Auto) 100 (0-100) /uL PT 11.1 (10.1-12.7) SECONDS INR 1.0 (0.9-1.3) APTT 30 (26.4-36.2) SECONDS Sodium 131 L (137-145) mmol/L Potassium 3.9 (3.4-5.1) mmol/L Chloride 95 L (98-107) mmol/L Carbon Dioxide 23 (22-32) mmol/L BUN 16 (7-17) mg/dL Creatinine 0.50 L (0.52-1.04) mg/dL Estimated GFR > 60.0 (>60) mL/min BUN/Creatinine Ratio 32.0 H (6-22) Glucose 139 H (80-110) mg/dL Calcium 9.6 (8.4-10.2) mg/dL Total Bilirubin 0.3 (0.2-1.3) mg/dL AST 31 (14-36) IU/L ALT 15 (<35) IU/L Alkaline Phosphatase 123 (38-126) U/L Total Creatine Kinase 53 (30-135) U/L CK-MB (CK-2) TNP CK-MB (CK-2) Rel Index TNP Troponin I < 0.012 (0.01-0.034) ng/mL Total Protein 8.5 H (6.3-8.2) g/dL Albumin 4.8 (3.5-5.0) g/dL Globulin 3.7 (1.7-4.1) g/dL Albumin/Globulin Ratio 1.3 (1.0-2.8) Urine RBC (0-5/HPF) Urine WBC (0-5/HPF) Ur Squamous Epith Cells (0-5/HPF) Amorphous Sediment Urine Bacteria (None) Ur Culture Indicated? U Morph 300 ng/mL cutoff (Negative) Ur Oxycodone Screen (Negative) Urine Methadone Screen (Negative) Ur Barbiturates Screen (Negative) U Tricyclic Antidepress (Negative) Ur Phencyclidine Scrn (Negative) Ur Amphetamines Screen (Negative) U Methamphetamines Scrn (Negative) Ur MDMA Scrn (Ecstasy) (Negative) U Benzodiazepines Scrn (Negative) Urine Cocaine Screen (Negative) U Marijuana (THC) Screen (Negative) 05/31/19 05/31/19 Range/Units 18:23 18:23 WBC (4.5-11.0) X10^3/uL RBC (4.0-5.2) X10^6/uL Hgb (12.0-16.0) g/dL Hct (36-46) % MCV (80-100) fL MCH (26-34) PG MCHC (30-36) % RDW (11.6-14.8) % Plt Count (150-400) X10^3/uL Neut % (Auto) (50-75) % Lymph % (Auto) (25-40) % [place] % (Auto) (3-14) % Eos % (Auto) (2-4) % Baso % (Auto) (0-2) % Neut # (Auto) (8960-2241) /uL Lymph # (Auto) (0933-3053) /uL [place] # (Auto) (0-900) /uL Eos # (Auto) (0-450) /uL Baso # (Auto) (0-100) /uL PT (10.1-12.7) SECONDS INR (0.9-1.3) APTT (26.4-36.2) SECONDS Sodium (137-145) mmol/L Potassium (3.4-5.1) mmol/L Chloride (98-107) mmol/L Carbon Dioxide (22-32) mmol/L BUN (7-17) mg/dL Creatinine (0.52-1.04) mg/dL Estimated GFR (>60) mL/min BUN/Creatinine Ratio (6-22) Glucose (80-110) mg/dL Calcium (8.4-10.2) mg/dL Total Bilirubin (0.2-1.3) mg/dL AST (14-36) IU/L ALT (<35) IU/L Alkaline Phosphatase (38-126) U/L Total Creatine Kinase (30-135) U/L CK-MB (CK-2) CK-MB (CK-2) Rel Index Troponin I (0.01-0.034) ng/mL Total Protein (6.3-8.2) g/dL Albumin (3.5-5.0) g/dL Globulin (1.7-4.1) g/dL Albumin/Globulin Ratio (1.0-2.8) Urine RBC None seen (0-5/HPF) Urine WBC 1-5/hpf (0-5/HPF) Ur Squamous Epith Cells 0-1 /hpf (0-5/HPF) Amorphous Sediment 1+ Urine Bacteria Occasional (0-1) (None) Ur Culture Indicated? Specimen cultured U Morph 300 ng/mL cutoff Negative (Negative) Ur Oxycodone Screen Negative (Negative) Urine Methadone Screen Negative (Negative) Ur Barbiturates Screen Negative (Negative) U Tricyclic Antidepress Negative (Negative) Ur Phencyclidine Scrn Negative (Negative) Ur Amphetamines Screen Negative (Negative) U Methamphetamines Scrn Negative (Negative) Ur MDMA Scrn (Ecstasy) Negative (Negative) U Benzodiazepines Scrn Negative (Negative) Urine Cocaine Screen Negative (Negative) U Marijuana (THC) Screen Negative (Negative) Urine Dip Bedside Urine Glucose Negative Bedside Urine Bilirubin - Negative Bedside Urine Ketone - Negative Urine Specific [place] 1.010 Bedside Urine Occult Blood - Negative Bedside Urine pH 6.0 Bedside Urine Protein +/- 15 Bedside Urine Urobilinogen - Negative Bedside Urine Nitrite - Negative Bedside Urine Leukocytes +/- 15 Esterase Imaging Data CTA head neck: Radiologist's impression: [address] [id number] [address] Scan Report Signed Patient: Candelaria Weaver LMR#: [id number] : 7Acct:[id number] Age/Sex: 73 / FDate of Service: 05/31/19 Loc: ED Accession Number: [id number] Procedure: CT angio head and neck Ordering Provider: Halima Lewis D.O. PROCEDURE: CT ANGIO HEAD AND NECK INDICATIONS: vertigo, tia symptoms in past month, nausea, htn TECHNIQUE: Pre-contrast 4.5 mm thick sections acquired from the foramen magnum to the vertex. After the administration of intravenous contrast, 1 mm thick sections acquired from the aortic arch through the [place] of [place]. Post-contrast 4.5 mm thick sections then re- acquired from the foramen magnum to the vertex. 3-dimensional ikmwawr-yktbzfpih-sgalduziqw (MIP) and/or volume rendering reformats were acquired of the central intracranial vasculature and neck separately. COMPARISON: None. FINDINGS: Image quality: Excellent. BRAIN: CSF spaces: Ventricles are normal in size and shape. Basal cisterns are patent. No extra-axial fluid collections. Brain: No midline shift. No intracranial bleeds or masses. No area of hypodensity in a large vascular distribution to suggest infarction. Periventricular hypodensity consistent with chronic microvascular disease. Intracranial distal ICA and distal vertebral artery atherosclerotic calcifications. Basal ganglia calcifications. Skull and face: Calvarium and facial bones appear intact, without suspicious lesions. Orbits appear normal. Sinuses: Sinuses and mastoids are clear. HEAD CT ANGIOGRAPHY: Anterior circulation: Intracranial internal carotid arteries are normal in size and flow. The flow within the paired anterior cerebral arteries is normal and symmetric. The flow within the middle cerebral arteries is normal and symmetric. The anterior communicating artery is seen. No aneurysms are seen. Posterior circulation: The posterior communicating arteries are hypoplastic or absent. Visualized portions of the vertebral arteries demonstrate normal caliber, and join to form a normal appearing basilar artery. Flow within the posterior cerebral arteries is normal and symmetric. No aneurysms are seen. NECK CT ANGIOGRAPHY: Carotid system: Left common carotid artery origin is off for the brachycephalic artery. The origins of the common carotid arteries appear patent. Moderate noncalcified atherosclerotic plaque in the left subclavian. Mild calcified plaque in the brachycephalic artery and left common carotid. The common carotid arteries demonstrate normal caliber and courses. The bifurcation regions are both widely patent. The internal carotid arteries demonstrate normal calibers and courses. No dissection. Moderate calcified atherosclerotic plaque in the carotid bulbs, left greater than right. Posterior circulation: The origins of the vertebral arteries both appear widely patent. The more superior extracranial portions of both vertebral arteries also dem onstrate normal courses and calibers. Left vertebral artery is dominant. They join to form a normal appearing basilar artery. Soft tissues: Visualized neck soft tissues demonstrate no suspicious abnormalities. Thyroid gland is unremarkable. Mild pleural apical scarring with calcification. Bones: No suspicious bony lesions. Moderate cervical spine degenerative change. Bone island in the left glenoid. Visualized cervical spine appears normally aligned. IMPRESSION: 1. No acute intracranial abnormality. 2. No large vessel occlusion. Findings of chronic microvascular ischemic change. 3. No significant ICA stenosis. Moderate calcified metastatic plaque. Comment: Findings were discussed with Ralph Thomson at the time of dictation. Any quantitative measurements of stenosis were performed using NASCET criteria. Dictated by: Cecil Perry M.D. on 05/31/2019 at 18:26 Approved by: Cecil Perry M.D. on 05/31/2019 at 18:39 MDM Narrative Medical decision making narrative: Dr Thomson: Received turned over from day provider. Perform my own history and physical exam. Reviewed patient's labo ratory. CT of the head and neck was unremarkable. Patient's symptoms do seem to be very much like vertigo. It is positional. She was given fluids and meclizine which potentially helped her symptoms somewhat. She is also complaining of other problems with speaking however this was several weeks/month ago. I do have low suspicion for CVA today. She could potentially be having TIAs however with only vertigo sensation today I feel that we could try meclizine and have her call her primary provider for an outpatient workup of TIA. She is currently on full dose aspirin on a daily basis. We did discuss that she should continue the rest of her medications. We discussed antihistamine use as she does feel like she does have some sinus congestion. Patient was given return precautions. She expressed understanding and agreement with plan Discharge Plan Departure Patient Disposition: Home Clinical Impression: Vertigo Discharge Date/Time: 05/31/19 21:15 Instructions: DI for Vertigo Activity Restrictions/Additional Instructions: I recommend that tomorrow you contact your primary doctor's office to discuss further workup. Continue all of your medications as directed. I do recommend that you consider taking a [id number] antihistamine such as Claritin or Zina or Zyrtec. You can buy the generic version of 1 of these medications. You can also consider taking Flonase or Nasonex. Return to the emergency department for any new or worsening symptoms Prescriptions: New meclizine 25 mg tablet 25 mg PO TID PRN (Reason: motion sickness) Qty: 14 RF: 0 No Action levothyroxine 75 mcg Tablet 75 mcg PO DAILY Qty: 0 RF: 0 amlodipine [Norvasc] 5 MG tablet 5 mg PO DAILY Qty: 0 RF: 0 metformin 500 mg Tablet 1,000 mg PO DAILY RF: 0 acetaminophen 325 mg Tablet 325 mg PO PRN MDD 4000 mg PRN (Reason: pain) RF: 0 losartan 100 mg Tablet 100 mg PO QPM RF: 0 atenolol 50 mg Tablet 50 mg PO BID RF: 0 cholecalciferol (vitamin D3) [Vitamin D3] 1,000 unit Capsule 1,000 unit PO QPM RF: 0 Prilosec OTC 20 mg Tablet,Delayed Release (Dr/Ec) 20 mg PO DAILY RF: 0 Probiotic 1 cap PO DAILY RF: 0 calcium citrate 500 mg 1,000 mg PO DAILY RF: 0 Referrals: Marek Nguyen MD [Primary Care Provider] -
[2019-05-31 17:43] LABS: Prothrombin Time 11.1 SECONDS (10.1-12.7)
[2019-05-31 17:45] LABS: PTT Partial Thromboplastin Tim 30 SECONDS (26.4-36.2)
[2019-05-31 17:46] LABS: Alanine Aminotransferase 15 IU/L (<35); Albumin 4.8 g/dL (3.5-5.0); Albumin Globulin Ratio 1.3 (1.0-2.8); Alkaline Phosphatase 123 U/L (38-126); Aspartate Aminotransferase 31 IU/L (14-36); Bilirubin Total 0.3 mg/dL (0.2-1.3); Blood Urea Nitrogen 16 mg/dL (7-17); Calcium 9.6 mg/dL (8.4-10.2); Carbon Dioxide 23 mmol/L (22-32); Chloride 95 mmol/L (98-107); Creatine Kinase 53 U/L (30-135); Estimated Glomerular Filt Rate > 60.0 mL/min (>60); Globulin 3.7 g/dL (1.7-4.1); Glucose 139 mg/dL (80-110); HEMOLYSIS < 15 (0-50); Potassium 3.9 mmol/L (3.4-5.1); Sodium 131 mmol/L (137-145); Total Protein 8.5 g/dL (6.3-8.2)
[2019-05-31 17:58] LABS: Troponin I < 0.012 ng/mL (0.01-0.034)
[2019-05-31] MEDS: SODIUM CHLORIDE 0.9% 1,000 ML 1000 ML IV (17:59)
[2019-05-31] MEDS: ONDANSETRON 4 MG/2 ML INJ IV (18:00)
[2019-05-31 18:32] LABS: RBC Urine None Seen (0-5/HPF)
[2019-05-31 18:38] VITALS: BP 176/93; PULSE 89; RESP 19; O2SAT 96
[2019-05-31 18:40] LABS: UR Morphine/Opiate cutoff 300 Negative (Negative); Ur Creatinine Normal (Normal); Ur Specific Gravity Normal (Normal); Urine Amphetamines Negative (Negative); Urine Cocaine Negative (Negative); Urine Tetrahydrocannabinol Negative (Negative); Urine pH Normal (Normal)
[2019-05-31 18:41] LABS: Urine Barbiturates Negative (Negative); Urine Benzodiazepines Negative (Negative); Urine MDMA Negative (Negative); Urine Methadone Negative (Negative); Urine Methamphetamines Negative (Negative); Urine Oxycodone Negative (Negative); Urine Phencyclidine Negative (Negative); Urine Tricyclic Antidepressant Negative (Negative)
[2019-05-31 18:44] LABS: Amorphous Sediment Urine 1+; Bacteria Urine Occasional (0-1); Culture Indicated Urine Specimen Cultured; Squamous Epithelial Cell Urine 0-1 /HPF (0-5/HPF); WBC Urine 1-5/HPF (0-5/HPF)
[2019-05-31 19:00] VITALS: BP 207/85; PULSE 94; RESP 19; O2SAT 95
[2019-05-31 19:30] VITALS: BP 185/90; PULSE 97; RESP 19; O2SAT 95
[2019-05-31] MEDS: MECLIZINE HCL 12.5 MG TABLET 25 MG PO (19:41)
[2019-05-31 20:15] VITALS: BP 141/86; PULSE 93; RESP 17; O2SAT 94
[2019-05-31] MEDS: ONDANSETRON 4 MG ODT PREPACK 1 BOTTLE MISC (21:05)
== END 2019-05-31 21:15 | disposition home or self-care (01) ==
PROVIDERS: Emergency Medicine; Emergency Provider Emergency Medicine; PCP Internal Medicine
DX: R42 Dizziness and giddiness (principal); I10 Essential (primary) hypertension; E03.9 Hypothyroidism, unspecified; R11.2 Nausea with vomiting, unspecified
CPT/HCPCS: 36415; 70450; 70496; 70498; 80053; 80305; 81003; 81015; 82550; 84484; 85025; 85610; 85730; 87086; 93005; 93010; 93041; 96361; 96374; 99284; 99285; J2405; Q9967

== ENCOUNTER → 2019-06-27 13:42 | Outpatient (CLI) | payer MEDICARE, OTHER, SELFPAY ==
--- NOTE | 2019-06-27 | DI.RAD.S_ITS ---
PROCEDURE: XR CHEST 2V INDICATIONS: COUGH TECHNIQUE: 2 views of the chest were acquired. COMPARISON: [facility], CT, CT ANGIO HEAD AND NECK, 05/31/2019, 17:48. [facility], CR, CHEST 2 VIEW, 06/29/2017, 17:51. [facility], CR, CHEST 1 VIEW, 10/04/2016, 17:15. FINDINGS: Surgical changes and devices: None. Lungs and pleura: Lungs are abnormal with a mild interstitial prominence but no pneumonia or neoplasm is suspected. A source of cough is not seen. Note is made of prominence of the vascularity along the right upper mediastinal border, previously also well-visualized by dedicated head/neck angiography 05/31/19 documenting absence of neoplasm as cause of that appearance. Several calcified lymph nodes in the mediastinum and right hilum are incidentally noted, previously documented. No pleural effusions or pneumothorax. Mediastinum: Mediastinal contours are normal. Heart size is normal. Bones and chest wall: No suspicious bony abnormalities. Soft tissues appear unremarkable. IMPRESSION: No source of cough found. Tortuosity of the right superior mediastinal border vascularity. As noted above this area was well seen on recent CT scanning 05/31/19 documenting absence of mass. Dictated by: Cuong Hurley M.D. on 06/27/2019 at 14:21 Approved by: Cuong Hurley M.D. on 06/27/2019 at 14:25
== END ==
PROVIDERS: PCP Internal Medicine; Visit Provider Physician Assistant
DX: R05 Cough (principal)
CPT/HCPCS: 71046

== ENCOUNTER → 2019-12-26 10:25 | Outpatient (CLI) | payer MEDICARE, OTHER, SELFPAY ==
--- NOTE | 2019-12-26 10:33 | DI.CT.S_ITS ---
PROCEDURE: CT ABDOMEN PELVIS W CON INDICATIONS: DIVERTCULITIS TECHNIQUE: After the administration of oral and intravenous contrast, 5 mm thick sections acquired from the diaphragms to the symphysis. 5 mm thick coronal and sagittal reformats were performed. For radiation dose reduction, the following was used: automated exposure control, adjustment of mA and/or kV according to patient size. COMPARISON: [facility], CT, CT ABDOMEN PELVIS W CON, 05/25/2018, 20:45. FINDINGS: Image quality: Excellent. ABDOMEN: Lung bases: Lung bases are clear. Heart size is normal. Solid organs: Liver is normal in size and enhancement. Gallbladder is within normal limits. Biliary system is non-dilated. Pancreas enhances normally. Spleen is normal in size and enhancement. No adrenal nodules. Kidneys are normal in size and enhancement, without hydronephrosis. Peritoneum and bowel: Stomach, small bowel, and colon loops are normal in caliber and wall thickness. No free fluid or air. Nodes and vessels: No retroperitoneal or mesenteric adenopathy. Aorta and inferior vena cava are normal in caliber. Miscellaneous: No ventral hernias. PELVIS: Genitourinary: Bladder wall thickness is normal. Miscellaneous: No inguinal hernias or adenopathy. Bones: There is a new, mild subacute fracture of the L2 vertebral body. Chronic compression fractures of T11, T12, L1, L3, and L4 are present, as before. IMPRESSION: 1. No acute process. Specifically, no evidence of diverticulitis. 2. New, mild subacute L2 compression fracture. Disc lesion would likely be amenable to percutaneous vertebral augmentation, if clinically indicated. Dictated by: Trixie Abad M.D. on 12/26/2019 at 13:56 Approved by: Trixie Abad M.D. on 12/26/2019 at 14:02
[2019-12-26 11:35] LABS: Add Manual Diff / Slide Review NO; Basophils Absolute Auto 100 /uL (0-100); Basophils Percent Auto 0.9 % (0-2); Eosinophils Absolute Auto 200 /uL (0-450); Eosinophils Percent Auto 2.1 % (2-4); Hemoglobin 12.2 g/dL (12.0-16.0); Lymphocytes Absolute Auto 1700 /uL (1100-4500); Lymphocytes Percent Auto 22.3 % (25-40); Mean Corpuscular Hemoglobin 29.8 PG (26-34); Mean Corpuscular Volume 87.7 fL (80-100); Monocytes Absolute Auto 600 /uL (0-900); Monocytes Percent Auto 7.6 % (3-14); Neutrophils Absolute Auto 5200 /uL (1500-7000); Neutrophils Percent Auto 67.1 % (50-75); Platelet Count 392 X10^3/uL (150-400); Red Blood Cell Count 4.11 X10^6/uL (4.0-5.2); White Blood Cell Count 7.7 X10^3/uL (4.5-11.0)
[2019-12-26 11:45] LABS: PTT Partial Thromboplastin Tim 28 SECONDS (26.4-36.2)
[2019-12-26 11:46] LABS: Alanine Aminotransferase 15 IU/L (<35); Albumin 4.6 g/dL (3.5-5.0); Albumin Globulin Ratio 1.2 (1.0-2.8); Alkaline Phosphatase 143 U/L (38-126); Aspartate Aminotransferase 29 IU/L (14-36); BUN Creatinine Ratio 16.9 (6-22); Bilirubin Total 0.6 mg/dL (0.2-1.3); Blood Urea Nitrogen 10 mg/dL (7-17); Calcium 9.9 mg/dL (8.4-10.2); Carbon Dioxide 24 mmol/L (22-32); Chloride 96 mmol/L (98-107); Estimated Glomerular Filt Rate > 60.0 mL/min (>60); Globulin 3.7 g/dL (1.7-4.1); Glucose 101 mg/dL (80-110); HEMOLYSIS < 15 (0-50); Lipase 192 U/L (23-300); Sodium 132 mmol/L (137-145); Total Protein 8.3 g/dL (6.3-8.2)
== END ==
PROVIDERS: PCP Internal Medicine; Referring Provider Internal Medicine; Visit Provider Internal Medicine
DX: K57.92 Diverticulitis of intestine, part unspecified, without perforation or abscess without bleeding (principal); K59.00 Constipation, unspecified; M48.56XA Collapsed vertebra, not elsewhere classified, lumbar region, initial encounter for fracture
CPT/HCPCS: 36415; 74177; 80053; 83690; 85025; 85610; 85730; Q9967

== ENCOUNTER → 2020-03-09 12:30 | Outpatient (CLI) | payer MEDICARE, OTHER, SELFPAY | PROVIDERS: PCP Internal Medicine; Referring Provider Internal Medicine; Visit Provider Internal Medicine | DX: M81.0 Age-related osteoporosis without current pathological fracture (principal); Z78.0 Asymptomatic menopausal state; E07.9 Disorder of thyroid, unspecified; E11.9 Type 2 diabetes mellitus without complications; Z82.62 Family history of osteoporosis | CPT/HCPCS: 77080 ==

== ENCOUNTER → 2020-04-17 18:39 | Outpatient (ROUT) | payer MEDICARE, OTHER, SELFPAY ==
[2020-04-17 19:05] LABS: Add Manual Diff / Slide Review NO; Basophils Absolute Auto 100 /uL (0-100); Basophils Percent Auto 1.2 % (0-2); Eosinophils Absolute Auto 100 /uL (0-450); Eosinophils Percent Auto 1.8 % (2-4); Hematocrit 35.8 % (36-46); Hemoglobin 11.9 g/dL (12.0-16.0); Lymphocytes Absolute Auto 2100 /uL (1100-4500); Lymphocytes Percent Auto 27.2 % (25-40); Mean Corpuscular HGB Conc 33.4 % (30-36); Mean Corpuscular Hemoglobin 30.1 PG (26-34); Mean Corpuscular Volume 90.3 fL (80-100); Monocytes Absolute Auto 500 /uL (0-900); Monocytes Percent Auto 6.7 % (3-14); Neutrophils Absolute Auto 4900 /uL (1500-7000); Neutrophils Percent Auto 63.1 % (50-75); Platelet Count 330 X10^3/uL (150-400); Red Blood Cell Count 3.96 X10^6/uL (4.0-5.2); Red Cell Distribution Width 13.6 % (11.6-14.8); White Blood Cell Count 7.7 X10^3/uL (4.5-11.0)
[2020-04-17 19:12] LABS: Aspartate Aminotransferase 28 IU/L (14-36); BUN Creatinine Ratio 17.3 (6-22); Blood Urea Nitrogen 13 mg/dL (7-17); Calcium 9.8 mg/dL (8.4-10.2); Carbon Dioxide 23 mmol/L (22-32); Chloride 98 mmol/L (98-107); Cholesterol 129 mg/dL (140-199); Estimated Glomerular Filt Rate > 60.0 mL/min (>60); Glucose 143 mg/dL (80-110); HDL Cholesterol 47 mg/dL (40-60); HEMOLYSIS < 15 (0-50); LDL Cholesterol Calculated 42 mg/dL (<100); Potassium 4.7 mmol/L (3.4-5.1); Sodium 134 mmol/L (137-145); Triglycerides 202 mg/dL (35-150)
[2020-04-17 19:42] LABS: TSH w/ Reflex to FT4 1.38 uIU/mL (0.47-4.68)
== END ==
PROVIDERS: PCP Internal Medicine; Visit Provider Internal Medicine
DX: I10 Essential (primary) hypertension (principal); E78.2 Mixed hyperlipidemia; E03.9 Hypothyroidism, unspecified; I26.99 Other pulmonary embolism without acute cor pulmonale
CPT/HCPCS: 80048; 80061; 84443; 84450; 85025

== ENCOUNTER → 2020-08-14 08:56 | Outpatient (CLI) | payer MEDICARE, OTHER, SELFPAY ==
[2020-08-14 10:44] LABS: Alanine Aminotransferase 16 IU/L (<35); Albumin 4.6 g/dL (3.5-5.0); Albumin Globulin Ratio 1.3 (1.0-2.8); Alkaline Phosphatase 101 U/L (38-126); Aspartate Aminotransferase 30 IU/L (14-36); BUN Creatinine Ratio 25.4 (6-22); Bilirubin Total 0.4 mg/dL (0.2-1.3); Blood Urea Nitrogen 15 mg/dL (7-17); Calcium 9.7 mg/dL (8.4-10.2); Carbon Dioxide 27 mmol/L (22-32); Chloride 97 mmol/L (98-107); Cholesterol 183 mg/dL (140-199); Estimated Glomerular Filt Rate > 60.0 mL/min (>60); Globulin 3.5 g/dL (1.7-4.1); Glucose 122 mg/dL (80-110); HDL Cholesterol 40 mg/dL (40-60); HEMOLYSIS < 15 (0-50); LDL Cholesterol Calculated 115 mg/dL (<100); Potassium 4.3 mmol/L (3.4-5.1); Sodium 132 mmol/L (137-145); Total Protein 8.1 g/dL (6.3-8.2); Triglycerides 139 mg/dL (35-150)
[2020-08-14 10:58] LABS: Free T4, Direct Thyroxine 1.66 ng/dL (0.78-2.19)
[2020-08-14 11:11] LABS: Thyroid Stimulating Hormone 1.34 uIU/mL (0.47-4.68)
[2020-08-14 12:49] LABS: Hemoglobin A1C% w Est Avg Glu 6.8 % (4.0-6.0)
== END ==
PROVIDERS: PCP Internal Medicine; Referring Provider Internal Medicine; Visit Provider Internal Medicine
DX: E03.9 Hypothyroidism, unspecified (principal); E11.9 Type 2 diabetes mellitus without complications; E78.2 Mixed hyperlipidemia; I10 Essential (primary) hypertension
CPT/HCPCS: 36415; 80053; 80061; 83036; 84439; 84443

== ENCOUNTER → 2020-10-09 16:51 | Outpatient (CLI) | payer MEDICARE, OTHER, SELFPAY ==
[2020-10-09 17:39] LABS: Alanine Aminotransferase 18 IU/L (<35); Albumin 4.9 g/dL (3.5-5.0); Albumin Globulin Ratio 1.4 (1.0-2.8); Alkaline Phosphatase 115 U/L (38-126); Aspartate Aminotransferase 32 IU/L (14-36); BUN Creatinine Ratio 22.2 (6-22); Bilirubin Total 0.3 mg/dL (0.2-1.3); Blood Urea Nitrogen 16 mg/dL (7-17); Carbon Dioxide 28 mmol/L (22-32); Chloride 96 mmol/L (98-107); Estimated Glomerular Filt Rate > 60.0 mL/min (>60); Globulin 3.6 g/dL (1.7-4.1); Glucose 109 mg/dL (80-110); HEMOLYSIS < 15 (0-50); Potassium 4.2 mmol/L (3.4-5.1); Sodium 134 mmol/L (137-145); Total Protein 8.5 g/dL (6.3-8.2)
[2020-10-09 17:40] LABS: C-Reactive Protein Quant < 0.5 mg/dL (<1.0)
[2020-10-09 17:47] LABS: Erythrocyte Sedimentation Rate 18 MM/HR (0-20)
[2020-10-09 18:00] LABS: Free T4, Direct Thyroxine 1.33 ng/dL (0.78-2.19)
[2020-10-09 18:14] LABS: Thyroid Stimulating Hormone 2.09 uIU/mL (0.47-4.68)
== END ==
PROVIDERS: PCP Internal Medicine; Referring Provider Internal Medicine; Visit Provider Internal Medicine
DX: E03.9 Hypothyroidism, unspecified (principal); I10 Essential (primary) hypertension
CPT/HCPCS: 36415; 80053; 84439; 84443; 85651; 86140

== ENCOUNTER → 2020-11-23 10:44 | Outpatient (CLI) | payer MEDICARE, OTHER, SELFPAY ==
--- NOTE | 2020-11-23 10:45 | DI.MG.S_ITS ---
BILATERAL DIGITAL SCREENING MAMMOGRAM 3D/2D WITH CAD: 11/23/2020 CLINICAL: Routine screening. Comparison is made to exams dated: 12/17/2018 mammogram, 08/28/2017 mammogram, and 08/22/2016 mammogram - [facility]. The tissue of both breasts is heterogeneously dense. This may lower the sensitivity of mammography. Current study was also evaluated with a Computer Aided Detection (CAD) system. There are benign vascular calcifications in both breasts. No significant masses, calcifications, or other findings are seen in either breast. There has been no significant interval change. IMPRESSION: BENIGN There is no mammographic evidence of malignancy. A 1 year screening mammogram is recommended. This exam was interpreted at Station ID: [id number]. NOTE: For mammograms, a report in lay terms will be sent to the patient. Approximately 15% of breast malignancies will not be visualized mammographically. In the management of a palpable breast mass, a negative mammogram must not discourage biopsy of a clinically suspicious lesion. Electronically Signed By: Ada kang/divina:11/23/2020 11:56:49 letter sent: Normal Exam ACR BI-RADS Category 2: Benign Finding(s) 3342F
== END ==
PROVIDERS: PCP Internal Medicine; Referring Provider Internal Medicine; Visit Provider Internal Medicine
DX: Z12.31 Encounter for screening mammogram for malignant neoplasm of breast (principal)
CPT/HCPCS: 77063; 77067

== ENCOUNTER → 2020-12-17 08:41 | Outpatient (CLI) | payer MEDICARE, OTHER, SELFPAY ==
[2020-12-17 09:37] LABS: Hemoglobin A1C% w Est Avg Glu 6.9 % (4.0-6.0)
[2020-12-17 09:46] LABS: Alanine Aminotransferase 17 IU/L (<35); Albumin 4.6 g/dL (3.5-5.0); Albumin Globulin Ratio 1.4 (1.0-2.8); Alkaline Phosphatase 120 U/L (38-126); Aspartate Aminotransferase 32 IU/L (14-36); BUN Creatinine Ratio 17.5 (6-22); Bilirubin Total 0.4 mg/dL (0.2-1.3); Blood Urea Nitrogen 11 mg/dL (7-17); Carbon Dioxide 26 mmol/L (22-32); Chloride 98 mmol/L (98-107); Cholesterol 115 mg/dL (140-199); Estimated Glomerular Filt Rate > 60.0 mL/min (>60); Globulin 3.3 g/dL (1.7-4.1); Glucose 127 mg/dL (80-110); HDL Cholesterol 47 mg/dL (40-60); HEMOLYSIS < 15 (0-50); LDL Cholesterol Calculated 46 mg/dL (<100); Potassium 4.8 mmol/L (3.4-5.1); Sodium 135 mmol/L (137-145); Total Protein 7.9 g/dL (6.3-8.2); Triglycerides 110 mg/dL (35-150)
== END ==
PROVIDERS: PCP Internal Medicine; Referring Provider Internal Medicine; Visit Provider Internal Medicine
DX: E11.9 Type 2 diabetes mellitus without complications (principal); E78.2 Mixed hyperlipidemia; I10 Essential (primary) hypertension
CPT/HCPCS: 36415; 80053; 80061; 83036

== ENCOUNTER → 2021-06-17 08:16 | Outpatient (CLI) | payer MEDICARE, OTHER, SELFPAY ==
[2021-06-17 09:18] LABS: Hemoglobin A1C% w Est Avg Glu 6.4 % (4.0-6.0)
[2021-06-17 09:35] LABS: Alanine Aminotransferase 16 IU/L (<35); Albumin 4.5 g/dL (3.5-5.0); Albumin Globulin Ratio 1.4 (1.0-2.8); Alkaline Phosphatase 102 U/L (38-126); Aspartate Aminotransferase 29 IU/L (14-36); Bilirubin Total 0.5 mg/dL (0.2-1.3); Blood Urea Nitrogen 13 mg/dL (7-17); Carbon Dioxide 28 mmol/L (22-32); Chloride 97 mmol/L (98-107); Cholesterol 115 mg/dL (140-199); Estimated Glomerular Filt Rate > 60.0 mL/min (>60); Globulin 3.3 g/dL (1.7-4.1); Glucose 138 mg/dL (80-110); HDL Cholesterol 42 mg/dL (40-60); HEMOLYSIS < 15 (0-50); LDL Cholesterol Calculated 53 mg/dL (<100); Potassium 4.7 mmol/L (3.4-5.1); Sodium 134 mmol/L (137-145); Total Protein 7.8 g/dL (6.3-8.2); Triglycerides 101 mg/dL (35-150)
== END ==
PROVIDERS: PCP Internal Medicine; Referring Provider Internal Medicine; Visit Provider Internal Medicine
DX: E11.9 Type 2 diabetes mellitus without complications (principal); E78.2 Mixed hyperlipidemia; I10 Essential (primary) hypertension
CPT/HCPCS: 36415; 80053; 80061; 83036

== ENCOUNTER 2021-10-07 20:03 | Emergency (ER) | payer MEDICARE, OTHER, SELFPAY ==
[2021-10-07] VITALS (10 sets, daily range): BP systolic 147–180; BP diastolic 67–86; PULSE 72–78; RESP 12–26; TEMP 36.6; O2SAT 95–98; BMI 27.5
[2021-10-07 20:37] LABS: Add Manual Diff / Slide Review NO; Basophils Absolute Auto 100 /uL (0-100); Basophils Percent Auto 0.8 % (0-2); Eosinophils Absolute Auto 200 /uL (0-450); Eosinophils Percent Auto 2.1 % (2-4); Hematocrit 35.9 % (36-46); Hemoglobin 12.2 g/dL (12.0-16.0); Lymphocytes Absolute Auto 1800 /uL (1100-4500); Lymphocytes Percent Auto 22.8 % (25-40); Mean Corpuscular Hemoglobin 30.5 PG (26-34); Mean Corpuscular Volume 89.8 fL (80-100); Monocytes Absolute Auto 700 /uL (0-900); Monocytes Percent Auto 8.6 % (3-14); Neutrophils Absolute Auto 5300 /uL (1500-7000); Neutrophils Percent Auto 65.7 % (50-75); Platelet Count 314 X10^3/uL (150-400); Red Cell Distribution Width 13.1 % (11.6-14.8); White Blood Cell Count 8.1 X10^3/uL (4.5-11.0)
[2021-10-07 21:18] LABS: Alanine Aminotransferase 16 IU/L (<35); Albumin 4.8 g/dL (3.5-5.0); Albumin Globulin Ratio 1.1 (1.0-2.8); Alkaline Phosphatase 124 U/L (38-126); Aspartate Aminotransferase 36 IU/L (14-36); BUN Creatinine Ratio 19.6 (6-22); Bilirubin Total 0.7 mg/dL (0.2-1.3); Blood Urea Nitrogen 10 mg/dL (7-17); Carbon Dioxide 24 mmol/L (22-32); Chloride 102 mmol/L (98-107); Estimated Glomerular Filt Rate > 60.0 mL/min (>60); Globulin 4.2 g/dL (1.7-4.1); Glucose 140 mg/dL (80-110); HEMOLYSIS 44 (0-50); Lipase 137 U/L (23-300); Sodium 134 mmol/L (137-145)
--- NOTE | 2021-10-07 23:51 | ED_ITS ---
HPI - Abdominal Pain General Chief Complaint: Abdominal Pain Stated Complaint: ABD Pain Time Seen by Provider: 10/07/21 21:46 Source: EMS Mode of arrival: EMS Limitations: no limitations History of Present Illness HPI narrative: This is a 76-year-old female comes emergency department complaint of left lower quadrant pain which has been present on and off for years but it has significantly worsened over the last week. Patient states it radiates to both sides of her back. He has felt bloated. She has had mucousy stools. Occasional red blood but not persistently, no melena. No fevers or chills. No cold cough or congestion. Chest pain or shortness of breath. No nausea or vomiting. It is worse when her stomach is empty. Tylenol does give her relief. She has had EGDs, colonoscopies CTs of her abdomen and pelvis in the past was following with Gastroenterology for some time with no clear cause for found. She does take medications for hypothyroid, GERD, dyslipidemia and hypertension. She has had remote history of back surgery, tib-fib fracture repair with patellar fracture. She developed compartment syndrome and had wound VAC after attempted sedation and reduction. No tobacco, rare alcohol, no illicit. Related Data Home Medications Medication Instructions Recorded Confirmed acetaminophen 325 mg tablet 325 mg PO PRN PRN MDD 4000 mg 05/31/19 06/24/21 omega-3 fatty acids 1,000 mg 1,000 mg PO DAILY 05/29/20 06/24/21 capsule (Fish Oil Concentrate) cholecalciferol (vitamin D3) 25 1,000 unit PO DAILY cap 10/23/20 06/24/21 mcg (1,000 unit) capsule (Vitamin D3) Calcium Citrate 2 tab PO DAILY 06/24/21 Previous Rx's Medication Instructions Recorded amlodipine 10 mg tablet 10 mg PO DAILY #90 tab 11/09/20 silver sulfadiazine 1 % topical 1 applic TOPICAL BID #50 g 06/24/21 cream (Silvadene) atenolol 50 mg tablet 50 mg PO BID #180 tab 07/15/21 levothyroxine 75 mcg tablet 75 mcg PO DAILY #90 tab 07/15/21 atorvastatin 40 mg tablet 40 mg PO DAILY #90 tab 08/19/21 losartan 100 mg tablet 100 mg PO QAM #90 tab 08/30/21 omeprazole 20 mg capsule,delayed 20 mg PO DAILY #90 cap 08/30/21 release Allergies Allergy/AdvReac Type Severity Reaction Status Date / Time bacitracin Allergy Unknown Verified 06/24/21 11:39 [From NEOSPORIN ([id number])] codeine [CODEINE] Allergy Unknown Verified 06/24/21 11:39 morphine [MORPHINE] Allergy Unknown Verified 06/24/21 11:39 neomycin Allergy Unknown Verified 06/24/21 11:39 [From NEOSPORIN ([id number])] polymyxin B Allergy Unknown Verified 06/24/21 11:39 [From NEOSPORIN ([id number])] tramadol AdvReac Severe GI Upset Verified 06/24/21 11:39 cephalexin AdvReac Intermediate Shaky/Nervo Verified 06/24/21 11:39 us Review of Systems Review of Systems ROS Unobtainable: All systems reviewed & are unremarkable except as noted in HPI and below Patient History Medical History Acquired hypothyroidism Cataracts, bilateral (~1999) Chicken pox Essential hypertension (~2008) Fractures (~2018) GERD (gastroesophageal reflux disease) (~2006) Hearing loss Measles Mixed hyperlipidemia Mumps Osteoporosis (~2018) Pulmonary embolism (~2010) Tinnitus (~2018) Type 2 diabetes mellitus Surgical History Anesthesia Broken leg (~2010) Compartment syndrome (~2011) History of back surgery (~2000) Status post surgical manipulation of knee joint (~2011) Family History Father Stroke Mother History of heart disease Social History marital status: Smoking Status: Never smoker substance use type: does not use Smoking Status: Never smoker Substance Use Type: does not use Exam Narrative Exam Narrative: GENERAL: Alert and oriented x three, female in mild distress. HEENT: Head normocephalic, atraumatic, EOMI, pupils reactive, face symmetric, moist mucous membranes NECK: Supple, full range of motion CARDIOVASCULAR: Regular rate and rhythm without murmurs, rubs or gallops. RESPIRATORY: Breath sounds equal bilaterally, no wheezes rales or rhonchi. ABDOMEN: Soft, mild tenderness of the left lower quadrant. It is localized wall mid abdomen on the left side but no palpable hernia or defect is noted patient is mildly bloated but is not distended. Normoactive bowel sounds all 4 quadrants. No guarding or rebound, rigidity, no mass : No CVA tenderness EXTREMITIES: Normal range of motion, no clubbing or edema. Neurovascularly intact NEUROLOGICAL: Cranial nerves II through XII grossly intact. Moving all extremities SKIN: Warm, dry, no petechiae, no rashes or lesions. Initial Vital Signs Initial Vital Signs: Vital Signs Pulse Rate 78 10/07/21 20:09 Respiratory Rate 12 10/07/21 20:09 Blood Pressure 180/86 H 10/07/21 20:09 Pulse Oximetry 96 10/07/21 20:09 Course Orders Ordered: ED Orders 10/08/21 00:05 CT abdomen pelvis w con Stat Reevaluation(s) Reevaluation #1: Patient and I discussed her findings today. She states she has had small very dry bowel movements and states that she was eating watermelon quite regularly and was having much more productive softer bowel movements. She does have MiraLax at home which she states she can take but we discussed that ingesting fruits and foods that help her have bowel movements would be a better choice discussed several options available to the patient. Patient does not have a way to return home so she born here in the department until the local taxi service is available after 6 am. Time: 01:03 Vital Signs Vital signs: Vital Signs - 8 hr 10/07/21 22:30 10/07/21 23:00 10/07/21 23:30 Pulse Rate 72 73 73 Respiratory Rate 18 16 20 Blood Pressure 168/77 H 174/79 H 174/80 H Pulse Oximetry 95 10/08/21 00:00 10/08/21 00:01 10/08/21 00:30 Pulse Rate 72 73 Respiratory Rate 39 H 28 H Blood Pressure 154/63 H Pulse Oximetry 95 95 98 10/08/21 00:32 10/08/21 01:00 10/08/21 01:01 Pulse Rate 73 68 68 Respiratory Rate 31 H 13 9 L Blood Pressure 176/78 H 161/71 H Pulse Oximetry 97 94 94 10/08/21 01:30 10/08/21 02:00 10/08/21 02:30 Pulse Rate 71 72 64 Respiratory Rate 27 H Blood Pressure Pulse Oximetry 94 96 95 10/08/21 03:00 10/08/21 03:30 10/08/21 04:00 Pulse Rate 64 64 70 Respiratory Rate Blood Pressure Pulse Oximetry 96 94 96 10/08/21 04:30 10/08/21 05:00 10/08/21 05:30 Pulse Rate 64 61 59 L Respiratory Rate Blood Pressure Pulse Oximetry 95 94 95 10/08/21 06:00 10/08/21 06:16 Pulse Rate 62 66 Respiratory Rate Blood Pressure 164/78 H Pulse Oximetry 95 97 MDM - Abdominal Pain Lab Data Result diagrams: 10/07/21 20:25 10/07/21 20:52 Labs: Lab Results 10/07/21 10/07/21 Range/Units 20:25 20:52 WBC 8.1 (4.5-11.0) X10^3/uL RBC 4.00 (4.0-5.2) X10^6/uL Hgb 12.2 (12.0-16.0) g/dL Hct 35.9 L (36-46) % MCV 89.8 (80-100) fL MCH 30.5 (26-34) PG MCHC 34.0 (30-36) % RDW 13.1 (11.6-14.8) % Plt Count 314 (150-400) X10^3/uL Neut % (Auto) 65.7 (50-75) % Lymph % (Auto) 22.8 L (25-40) % [place] % (Auto) 8.6 (3-14) % Eos % (Auto) 2.1 (2-4) % Baso % (Auto) 0.8 (0-2) % Neut # (Auto) 5300 (0567-5221) /uL Lymph # (Auto) 1800 (6624-3708) /uL [place] # (Auto) 700 (0-900) /uL Eos # (Auto) 200 (0-450) /uL Baso # (Auto) 100 (0-100) /uL Sodium 134 L (137-145) mmol/L Potassium 4.0 (3.4-5.1) mmol/L Chloride 102 (98-107) mmol/L Carbon Dioxide 24 (22-32) mmol/L BUN 10 (7-17) mg/dL Creatinine 0.51 L (0.52-1.04) mg/dL Estimated GFR > 60.0 (>60) mL/min BUN/Creatinine Ratio 19.6 (6-22) Glucose 140 H (80-110) mg/dL Calcium 10.0 (8.4-10.2) mg/dL Total Bilirubin 0.7 (0.2-1.3) mg/dL AST 36 (14-36) IU/L ALT 16 (<35) IU/L Alkaline Phosphatase 124 (38-126) U/L Total Protein 9.0 H (6.3-8.2) g/dL Albumin 4.8 (3.5-5.0) g/dL Globulin 4.2 H (1.7-4.1) g/dL Albumin/Globulin Ratio 1.1 (1.0-2.8) Lipase 137 (23-300) U/L Point of care testing: Urine Dip Bedside Urine Glucose Negative Bedside Urine Bilirubin - Negative Bedside Urine Ketone - Negative Urine Specific [place] 1.010 Bedside Urine Occult Blood - Negative Bedside Urine pH 6.0 Bedside Urine Protein - Negative Bedside Urine Urobilinogen - Negative Bedside Urine Nitrite - Negative Bedside Urine Leukocytes - Negative Esterase Imaging Data CT scan - abdomen/pelvis: Radiologist's Impression: [place] [address] CT Scan Report Signed Patient: Candelaria Weaver MR#: [id number] : 1945 Acct:[id number] Age/Sex: 76 / F Date of Service: 10/08/21 Loc: ED Accession Number: [id number] ?? Procedure: CT abdomen pelvis w con Ordering Provider: Halima Lewis D.O. PROCEDURE:? CT ABDOMEN PELVIS W CON ? INDICATIONS:? LLQ pain radiates to back.? hx abd pain, no cause found ? TECHNIQUE:? After the administration of intravenous contrast, axial sections acquired from the lung bases to the pubic symphysis.? Coronal and sagittal reformats were performed.? For radiation dose reduction, the following was used:? automated exposure control, adjustment of mA and/or kV according to patient size.? ? COMPARISON:? [facility], CT, CT ABDOMEN PELVIS W CON, 05/25/2018, 20:45. ? FINDINGS:? Image quality:? Excellent.? ? Lung bases:? Unremarkable. Heart:? No significant findings. ? ABDOMEN: Liver:? Unremarkable.? ? Gallbladder:? Unremarkable.? ? Biliary ducts:? Unremarkable.? ? Pancreas:? Unremarkable.? ? Spleen:? Unremarkable.? ? Adrenal Glands:? Unremarkable.? ? Kidneys and Ureters:? Unremarkable.? ? ? Stomach and Bowel:? Stomach, small bowel loops, and colon are unremarkable.? Large amount of stool throughout the colon.? Appendix is not definitely visualized, however no free fluid or free air identified adjacent to the cecum. Peritoneum:? No abnormal intraperitoneal fluid.? No free air.? ? Ventral Wall: ? No hernias.? Abdominal Nodes:? No retroperitoneal or mesenteric adenopathy by size criteria.? Vessels:? Aorta and inferior vena cava are normal in size. Scattered atherosclerotic calcifications involving the abdominal and pelvic vasculature.? ? PELVIS: Pelvic Organs:? Unremarkable.? ? Bladder:? Unremarkable.? ? Pelvic Nodes: No enlarged lymph nodes.? Miscellaneous: No hernias are seen. ? ? ? Bones:? T11, T12, L1, L2, L3 and L4 compression fractures are stable compared to May 25, 2018. No acute compression fractures identified. Spine degenerative disc disease and facet arthropathy.? ? ? IMPRESSION:? ? 1. Large amount of stool throughout the colon.? ? 2. No free fluid or free air. ? 3. No dilated loops of bowel. ? 4. No diverticulosis, diverticulitis or colitis.? Dictated by: Isabella Qureshi MD, PhD on 10/08/2021 at 0:46 ? ? Approved by: Isabella Qureshi MD, PhD on 10/08/2021 at 0:51 ECG Data Attestation: I personally reviewed and interpreted this ECG as follows: Prior ECG tracings: available for review Interpretation: Sinus degree with first-degree AV block. Left bundle-branch block. Rate of 70 5p are 212 QRS of 150 and QTC of 495. Patient has prior EKGs from 06/10/2019 which do not show a left bundle-branch block. [facility] Narrative Medical decision making narrative: This is a 76-year-old female with left lower quadrant pain which she states has been intermittent and longstanding but has rapidly worsened in the past week. Patient's labs do not show a clear cause. She is tender in her left lower quadrant with no rigidity rebound or guarding. She is afebrile. Discussed CT abdomen and pelvis she has had multiple EGD, colonoscopy some CTs in the past. Discussed risks benefits and patient elects to go ahead with imaging. No colitis, diverticulitis, stones, hernia or other causes are noted. Patient's urine does not show signs of infection. Patient does have quite a bit of stool this may be causing her discomfort. Patient has noted she has been constipated after discussion and we discussed options to help with this as well as return precautions. She has been having persistent back pain and has multiple compression fractures that are likely contributing to this. She finds Tylenol at appropriate dosages is helpful for her discomfort plans to continue to take this regularly. Discharge Plan Departure Patient Disposition: Home Clinical Impression: Compression fracture Instructions: DI for Vertebral Fracture Activity Restrictions/Additional Instructions: Your imaging shows multiple compression fractures at T11 through L4 that are a cause of your back pain. It may be helpful to follow-up with a back surgeon or interventionalist for your back pain. Your imaging does show a large amount of stool throughout the colon and you may have some constipation causing you discomfort but her bowel and intra-abdominal organs are otherwise normal. You can continue Tylenol 650 mg every 6 hours as needed. I would recommend adding a stool softener such as Colace to your daily medications and increasing your water intake. Please return for fevers, new or worsening abdominal, back or flank pain, persistent vomiting, inability to have a bowel movement, new weakness, numbness or loss of sensation in her extremities or other new or concerning symptoms. Prescriptions: No Action amlodipine 10 mg tablet 10 mg PO DAILY Qty: 90 3RF atenolol 50 mg tablet 50 mg PO BID Qty: 180 3RF levothyroxine 75 mcg tablet 75 mcg PO DAILY Qty: 90 3RF atorvastatin 40 mg tablet 40 mg PO DAILY Qty: 90 3RF losartan 100 mg tablet 100 mg PO QAM Qty: 90 2RF omeprazole 20 mg capsule,delayed release(DR/EC) 20 mg PO DAILY Qty: 90 2RF silver sulfadiazine [Silvadene] 1 % cream 1 applic topical BID Qty: 50 3RF Rx Instructions: apply a 1.5 mm thickness omega-3 fatty acids [Fish Oil Concentrate] 1,000 mg capsule 1,000 mg PO DAILY 0RF Calcium Citrate 600 mg 2 tab PO DAILY 0RF acetaminophen 325 mg Tablet 325 mg PO PRN MDD 4000 mg PRN (Reason: pain) 0RF cholecalciferol (vitamin D3) [Vitamin D3] 25 mcg (1,000 unit) capsule 1,000 unit PO DAILY 0RF Referrals: Lance Ascencio MD [Primary Care Provider] -
[2021-10-08] VITALS (17 sets, daily range): BP systolic 154–176; BP diastolic 63–78; PULSE 59–73; RESP 9–39; O2SAT 94–98
--- NOTE | 2021-10-08 00:05 | DI.CT.S_ITS ---
PROCEDURE: CT ABDOMEN PELVIS W CON INDICATIONS: LLQ pain radiates to back. hx abd pain, no cause found TECHNIQUE: After the administration of intravenous contrast, axial sections acquired from the lung bases to the pubic symphysis. Coronal and sagittal reformats were performed. For radiation dose reduction, the following was used: automated exposure control, adjustment of mA and/or kV according to patient size. COMPARISON: [facility], CT, CT ABDOMEN PELVIS W CON, 05/25/2018, 20:45. FINDINGS: Image quality: Excellent. Lung bases: Unremarkable. Heart: No significant findings. ABDOMEN: Liver: Unremarkable. Gallbladder: Unremarkable. Biliary ducts: Unremarkable. Pancreas: Unremarkable. Spleen: Unremarkable. Adrenal Glands: Unremarkable. Kidneys and Ureters: Unremarkable. Stomach and Bowel: Stomach, small bowel loops, and colon are unremarkable. Large amount of stool throughout the colon. Appendix is not definitely visualized, however no free fluid or free air identified adjacent to the cecum. Peritoneum: No abnormal intraperitoneal fluid. No free air. Ventral Wall: No hernias. Abdominal Nodes: No retroperitoneal or mesenteric adenopathy by size criteria. Vessels: Aorta and inferior vena cava are normal in size. Scattered atherosclerotic calcifications involving the abdominal and pelvic vasculature. PELVIS: Pelvic Organs: Unremarkable. Bladder: Unremarkable. Pelvic Nodes: No enlarged lymph nodes. Miscellaneous: No hernias are seen. Bones: T11, T12, L1, L2, L3 and L4 compression fractures are stable compared to May 25, 2018. No acute compression fractures identified. Spine degenerative disc disease and facet arthropathy. IMPRESSION: 1. Large amount of stool throughout the colon. 2. No free fluid or free air. 3. No dilated loops of bowel. 4. No diverticulosis, diverticulitis or colitis. Dictated by: Isabella Qureshi MD, PhD on 10/08/2021 at 0:46 Approved by: Isabella Qureshi MD, PhD on 10/08/2021 at 0:51
--- NOTE | 2021-10-08 01:56 | PC.NURSE ---
pt unable to find ride home at 0130 pt will remain in ED till appropriate ride available
== END 2021-10-08 06:24 | disposition home or self-care (01) ==
PROVIDERS: Emergency Provider Emergency Medicine; PCP Internal Medicine
DX: S22.080D Wedge compression fracture of T11-T12 vertebra, subsequent encounter for fracture with routine healing (principal); S32.010D Wedge compression fracture of first lumbar vertebra, subsequent encounter for fracture with routine healing; S32.020D Wedge compression fracture of second lumbar vertebra, subsequent encounter for fracture with routine healing; S32.030D Wedge compression fracture of third lumbar vertebra, subsequent encounter for fracture with routine healing; S32.040D Wedge compression fracture of fourth lumbar vertebra, subsequent encounter for fracture with routine healing; X58.XXXD Exposure to other specified factors, subsequent encounter; R03.0 Elevated blood-pressure reading, without diagnosis of hypertension; I44.0 Atrioventricular block, first degree; I44.7 Left bundle-branch block, unspecified
CPT/HCPCS: 36415; 74177; 80053; 81003; 83690; 85025; 93005; 93010; 99283; 99284; Q9967

== ENCOUNTER → 2021-12-09 07:58 | Outpatient (CLI) | payer MEDICARE, OTHER, SELFPAY ==
[2021-12-09 09:56] LABS: Alanine Aminotransferase 16 IU/L (<35); Albumin 4.7 g/dL (3.5-5.0); Albumin Globulin Ratio 1.3 (1.0-2.8); Alkaline Phosphatase 132 U/L (38-126); Aspartate Aminotransferase 30 IU/L (14-36); Bilirubin Total 0.6 mg/dL (0.2-1.3); Blood Urea Nitrogen 14 mg/dL (7-17); Calcium 9.7 mg/dL (8.4-10.2); Carbon Dioxide 25 mmol/L (22-32); Chloride 99 mmol/L (98-107); Cholesterol 120 mg/dL (140-199); Estimated Glomerular Filt Rate > 60 mL/min (>60); Globulin 3.6 g/dL (1.7-4.1); Glucose 141 mg/dL (80-110); HDL Cholesterol 46 mg/dL (40-60); HEMOLYSIS < 15 (0-50); LDL Cholesterol Calculated 49 mg/dL (<100); Potassium 4.6 mmol/L (3.4-5.1); Sodium 134 mmol/L (137-145); Total Protein 8.3 g/dL (6.3-8.2); Triglycerides 127 mg/dL (35-150)
[2021-12-09 10:24] LABS: Free T4, Direct Thyroxine 1.61 ng/dL (0.78-2.19)
[2021-12-09 10:38] LABS: Thyroid Stimulating Hormone 1.71 uIU/mL (0.47-4.68)
== END ==
PROVIDERS: PCP Internal Medicine; Referring Provider Internal Medicine; Visit Provider Internal Medicine
DX: E11.9 Type 2 diabetes mellitus without complications (principal); E78.2 Mixed hyperlipidemia; E03.9 Hypothyroidism, unspecified; I10 Essential (primary) hypertension
CPT/HCPCS: 36415; 80053; 80061; 83036; 84439; 84443

== ENCOUNTER → 2022-06-10 07:40 | Outpatient (CLI) | payer MEDICARE, OTHER, SELFPAY ==
[2022-06-10 09:09] LABS: Hemoglobin A1C% w Est Avg Glu 6.9 % (4.0-6.0)
[2022-06-10 09:11] LABS: Alanine Aminotransferase 17 IU/L (<35); Albumin 4.4 g/dL (3.5-5.0); Albumin Globulin Ratio 1.3 (1.0-2.8); Alkaline Phosphatase 137 U/L (38-126); Aspartate Aminotransferase 26 IU/L (14-36); BUN Creatinine Ratio 19.7 (6-22); Bilirubin Total 0.5 mg/dL (0.2-1.3); Blood Urea Nitrogen 14 mg/dL (7-17); Calcium 9.1 mg/dL (8.4-10.2); Carbon Dioxide 26 mmol/L (22-32); Chloride 96 mmol/L (98-107); Cholesterol 114 mg/dL (140-199); Estimated Glomerular Filt Rate > 60 mL/min (>60); Globulin 3.5 g/dL (1.7-4.1); Glucose 120 mg/dL (80-110); HDL Cholesterol 39 mg/dL (40-60); HEMOLYSIS < 15 (0-50); LDL Cholesterol Calculated 50 mg/dL (<100); Potassium 4.6 mmol/L (3.4-5.1); Sodium 134 mmol/L (137-145); Total Protein 7.9 g/dL (6.3-8.2); Triglycerides 123 mg/dL (35-150)
== END ==
PROVIDERS: PCP Internal Medicine; Referring Provider Internal Medicine; Visit Provider Internal Medicine
DX: E11.9 Type 2 diabetes mellitus without complications (principal); E78.2 Mixed hyperlipidemia; E03.9 Hypothyroidism, unspecified; I10 Essential (primary) hypertension
CPT/HCPCS: 36415; 80053; 80061; 83036

== ENCOUNTER → 2022-12-09 07:28 | Outpatient (CLI) | payer MEDICARE, OTHER, SELFPAY ==
[2022-12-09 10:05] LABS: Free T4, Direct Thyroxine 1.56 ng/dL (0.78-2.19)
[2022-12-09 10:06] LABS: Alanine Aminotransferase 19 IU/L (<35); Albumin 4.7 g/dL (3.5-5.0); Albumin Globulin Ratio 1.4 (1.0-2.8); Alkaline Phosphatase 140 U/L (38-126); Aspartate Aminotransferase 28 IU/L (14-36); BUN Creatinine Ratio 21.5 (6-22); Bilirubin Total 0.6 mg/dL (0.2-1.3); Blood Urea Nitrogen 14 mg/dL (7-17); Calcium 9.6 mg/dL (8.4-10.2); Carbon Dioxide 26 mmol/L (22-32); Chloride 98 mmol/L (98-107); Cholesterol 127 mg/dL (140-199); Estimated Glomerular Filt Rate > 60 mL/min (>60); Globulin 3.4 g/dL (1.7-4.1); Glucose 128 mg/dL (80-110); HDL Cholesterol 51 mg/dL (40-60); HEMOLYSIS < 15 (0-50); LDL Cholesterol Calculated 57 mg/dL (<100); Potassium 4.6 mmol/L (3.4-5.1); Sodium 136 mmol/L (137-145); Total Protein 8.1 g/dL (6.3-8.2); Triglycerides 95 mg/dL (35-150)
[2022-12-09 10:19] LABS: Thyroid Stimulating Hormone 1.55 uIU/mL (0.47-4.68)
[2022-12-10 06:01] LABS: x Labcorp Estim. Avg Glu (eAG) 148 mg/dL (.); x Labcorp Hemoglobin A1c 6.8 % (4.8-5.6)
== END ==
PROVIDERS: PCP Internal Medicine; Referring Provider Internal Medicine; Visit Provider Internal Medicine
DX: E03.9 Hypothyroidism, unspecified; E78.2 Mixed hyperlipidemia; I10 Essential (primary) hypertension; E11.9 Type 2 diabetes mellitus without complications
CPT/HCPCS: 36415; 80053; 80061; 83036; 84439; 84443

== ENCOUNTER → 2023-06-12 07:08 | Outpatient (CLI) | payer MEDICARE, OTHER, SELFPAY ==
[2023-06-12 08:27] LABS: Hemoglobin A1C% w Est Avg Glu 6.8 % (4.0-6.0)
[2023-06-12 08:38] LABS: Alanine Aminotransferase 21 IU/L (<35); Albumin 4.9 g/dL (3.5-5.0); Albumin Globulin Ratio 1.3 (1.0-2.8); Alkaline Phosphatase 120 U/L (38-126); Aspartate Aminotransferase 38 IU/L (14-36); BUN Creatinine Ratio 23.2 (6-22); Bilirubin Total 0.8 mg/dL (0.2-1.3); Blood Urea Nitrogen 16 mg/dL (7-17); Calcium 10.1 mg/dL (8.4-10.2); Carbon Dioxide 27 mmol/L (22-32); Chloride 98 mmol/L (98-107); Cholesterol 134 mg/dL (140-199); Estimated Glomerular Filt Rate > 60 mL/min (>60); Globulin 3.9 g/dL (1.7-4.1); Glucose 131 mg/dL (80-110); HDL Cholesterol 49 mg/dL (40-60); HEMOLYSIS < 15 (0-50); LDL Cholesterol Calculated 59 mg/dL (<100); Potassium 4.4 mmol/L (3.4-5.1); Sodium 135 mmol/L (137-145); Total Protein 8.8 g/dL (6.3-8.2); Triglycerides 129 mg/dL (35-150)
== END ==
PROVIDERS: PCP Internal Medicine; Referring Provider Internal Medicine; Visit Provider Internal Medicine
DX: E11.9 Type 2 diabetes mellitus without complications (principal); I10 Essential (primary) hypertension; E78.2 Mixed hyperlipidemia
CPT/HCPCS: 36415; 80053; 80061; 83036

== ENCOUNTER 2023-09-09 09:55 | Emergency (ER) | payer MEDICARE, OTHER, SELFPAY ==
[2023-09-09] VITALS (15 sets, daily range): BP systolic 138–177; BP diastolic 69–83; PULSE 61–80; RESP 14–27; TEMP 36.3; O2SAT 96–100; BMI 27.2
--- NOTE | 2023-09-09 10:08 | DI.RAD.S_ITS ---
PROCEDURE: XR CHEST 1V INDICATIONS: chest pain TECHNIQUE: One view of the chest was acquired. COMPARISON: [facility], CR, XR CHEST 2V, 06/27/2019, 13:41. FINDINGS: Surgical changes and devices: None. Lungs and pleura: Calcified pleural plaque in left apex is seen. No definite focal infiltrate. No pleural effusions or pneumothorax. Mediastinum: Mediastinal contours appear normal. Heart size is enlarged. Bones and chest wall: No suspicious bony lesions. Overlying soft tissues appear unremarkable. IMPRESSION: Calcified pleural plaque in left apex suggestive of prior asbestos exposure. No focal infiltrate, pleural effusion or pneumothorax. Dictated by: Per Dominguez M.D. on 09/09/2023 at 10:34 Approved by: Per Dominguez M.D. on 09/09/2023 at 10:36
[2023-09-09 10:13] LABS: Add Manual Diff / Slide Review NO; Basophils Absolute Auto 100 /uL (0-100); Basophils Percent Auto 1.2 % (0-2); Eosinophils Absolute Auto 200 /uL (0-450); Eosinophils Percent Auto 2.9 % (2-4); Hematocrit 38.1 % (36-46); Hemoglobin 12.9 g/dL (12.0-16.0); Lymphocytes Absolute Auto 2100 /uL (1100-4500); Mean Corpuscular HGB Conc 33.7 % (30-36); Monocytes Absolute Auto 700 /uL (0-900); Monocytes Percent Auto 10.2 % (3-14); Neutrophils Absolute Auto 3500 /uL (1500-7000); Neutrophils Percent Auto 53.7 % (50-75); Platelet Count 338 X10^3/uL (150-400); Red Blood Cell Count 4.14 X10^6/uL (4.0-5.2); Red Cell Distribution Width 13.3 % (11.6-14.8); White Blood Cell Count 6.6 X10^3/uL (4.5-11.0)
[2023-09-09] MEDS: SODIUM CHLORIDE 0.9% 1,000 ML 1000 ML IV (10:14)
[2023-09-09 10:32] LABS: Alanine Aminotransferase 19 IU/L (<35); Albumin 4.9 g/dL (3.5-5.0); Albumin Globulin Ratio 1.2 (1.0-2.8); Alkaline Phosphatase 142 U/L (38-126); Aspartate Aminotransferase 38 IU/L (14-36); BUN Creatinine Ratio 23.4 (6-22); Blood Urea Nitrogen 15 mg/dL (7-17); Calcium 9.9 mg/dL (8.4-10.2); Carbon Dioxide 21 mmol/L (22-32); Chloride 96 mmol/L (98-107); Creatine Kinase 58 U/L (30-135); Estimated Glomerular Filt Rate > 60 mL/min (>60); Globulin 4.1 g/dL (1.7-4.1); Glucose 179 mg/dL (80-110); HEMOLYSIS 22 (0-50); Lipase 137 U/L (23-300); Potassium 4.6 mmol/L (3.4-5.1); Sodium 131 mmol/L (137-145)
--- NOTE | 2023-09-09 10:40 | ED.DIZZY ---
HPI - Dizziness General Chief Complaint: Dizziness Stated Complaint: vertigo & nausea Time Seen by Provider: 09/09/23 10:08 Source: patient and EMS Mode of arrival: EMS History of Present Illness HPI Narrative: Patient 78-year-old female history of hypertension hyperlipidemia hypothyroid presenting today with dizziness. She was sitting at her desk when she developed sudden onset of dizziness room spinning and started vomiting. She apparently was vomiting quite a bit requiring Phenergan and Benadryl with EMS along with Zofran. She does report that this happened to her couple months back not quite this intense. According to our records here she was seen in 2019 with vertigo-like symptoms and had a CT angio at that time as well. She now just feels like her legs are extremely heavy the nausea has subsided but she does not quite feel like she is ready to lay down. No numbness tingling or difficulty speaking. She denies any chest pain or fever. Related Data Home Medications Medication Instructions Recorded Confirmed acetaminophen 325 mg tablet 325 mg PO PRN PRN pain 05/31/19 06/15/23 cholecalciferol (vitamin D3) 25 1,000 unit PO DAILY 10/23/20 06/15/23 mcg (1,000 unit) capsule (Vitamin D3) Previous Rx's Medication Instructions Recorded levothyroxine 75 mcg tablet 75 mcg PO DAILY #90 tabs 02/11/23 atenolol 50 mg tablet 50 mg PO BID #180 tabs 02/23/23 atorvastatin 40 mg tablet 40 mg PO DAILY #90 tabs 03/18/23 omeprazole 20 mg capsule,delayed 20 mg PO DAILY #90 caps 04/09/23 release losartan 100 mg tablet 100 mg PO QAM #90 tabs 06/09/23 amlodipine 10 mg tablet 10 mg PO DAILY #90 tabs 06/15/23 silver sulfadiazine 1 % topical 1 applic topical BID #50 grams 06/15/23 cream (Silvadene) meclizine 25 mg tablet 25 mg PO TID PRN dizziness #10 tabs 09/09/23 ondansetron 4 mg disintegrating 4 mg PO Q8H PRN nausea and 09/09/23 tablet vomiting #10 tabs Allergies Allergy/AdvReac Type Severity Reaction Status Date / Time bacitracin Allergy Unknown Verified 09/09/23 10:09 [From NEOSPORIN ([id number])] codeine [CODEINE] Allergy Unknown Verified 09/09/23 10:09 morphine [MORPHINE] Allergy Unknown Verified 09/09/23 10:09 neomycin Allergy Unknown Verified 09/09/23 10:09 [From NEOSPORIN ([id number])] polymyxin B Allergy Unknown Verified 09/09/23 10:09 [From NEOSPORIN ([id number])] tramadol AdvReac Severe GI Upset Verified 09/09/23 10:09 cephalexin AdvReac Intermediate Shaky/Nervo Verified 09/09/23 10:09 us Patient History Medical History (Updated 09/09/23 @ 12:19 by Isabel Montanez DO) History of adenomatous polyp of colon Hemorrhoids, internal Fractures (~2018) Mumps Measles Chicken pox Tinnitus (~2018) Hearing loss Cataracts, bilateral (~1999) GERD (gastroesophageal reflux disease) (~2006) Pulmonary embolism (~2010) Osteoporosis (~2018) Type 2 diabetes mellitus Essential hypertension (~2008) Mixed hyperlipidemia Acquired hypothyroidism Surgical History Anesthesia Status post surgical manipulation of knee joint (~2011) Compartment syndrome (~2011) Broken leg (~2010) History of back surgery (~2000) Family History Father Stroke Mother History of heart disease Social History marital status: Smoking Status: Never smoker substance use type: does not use Smoking Status: Never smoker alcohol intake frequency: 0-2 drinks per day Substance Use Type: does not use Exam Initial Vital Signs Initial Vital Signs: Vital Signs Pulse Rate 64 09/09/23 09:59 Pulse Oximetry 99 09/09/23 09:59 GENERAL: Weak alert 78-year-old female and in no acute distress. HEENT: Head atraumatic,EOMI, pupils reactive, face symmetric, moist mucous membranes CARDIOVASCULAR: Regular rate and rhythm without murmurs, rubs or gallops. RESPIRATORY: Breath sounds equal bilaterally, no wheezes rales or rhonchi. ABDOMEN: Soft, nontender. Normoactive bowel sounds all 4 quadrants. No guarding or rebound. EXTREMITIES: Normal range of motion, no clubbing or edema. Neurovascularly intact NEUROLOGICAL: Alert and oriented x4.Normal gait and speech. Cranial nerves II through XII grossly intact. Good itwumh-xc-iqwg, good yhsx-ee-ygjl, strength equal bilaterally but weak, no dysarthria or aphasia, sensation in tact to soft touch bilaterally, no visual changes, no facial droop SKIN: Warm, dry, no laceration, no petechiae, no rashes or lesions. Scores NIH Stroke Scale Level of Conciousness: Alert, keenly responsive Ask month/age: Answers both questions correctly. Open/close eyes, close hand: Performs both tasks correctly Best gaze horizontal: Normal Visual mayorga: No visual loss Facial palsy: Normal symetrical movement Left arm drift: No drift for full 10 sec Right arm drift: No drift for full 10 sec Left leg drift: No drift for full 5 sec Right leg drift: No drift for full 5 sec Limb ataxia: Absent Sensory on face/arms/legs: Normal, no sensory loss Best language: No aphasia, normal Dysarthria: Normal Extinction or inattention: No abnormality Total NIH Stroke scale score: 0 Course Orders Ordered: ED Orders 09/09/23 10:50 CT angio head and neck Stat Discontinued Medications Sodium Chloride (Normal Saline 0.9%) 1,000 mls @ 1,000 mls/hr IV CONT KELLY Last Infusion: 09/09/23 11:31 Dose: Infused Documented By: Admin: 09/09/23 10:14 Dose: 1,000 mls/hr Documented By: BENJAMIN Vital Signs Vital signs: Vital Signs - 8 hr 09/09/23 11:43 09/09/23 11:43 09/09/23 11:45 Pulse Rate 80 72 Respiratory Rate 27 H 19 Blood Pressure 177/83 H Pulse Oximetry 97 99 09/09/23 12:00 09/09/23 12:00 09/09/23 12:15 Pulse Rate 67 68 Respiratory Rate 14 16 Blood Pressure 155/72 H Pulse Oximetry 97 97 MDM - Dizziness Lab Data 09/09/23 10:08 09/09/23 10:08 Labs: Lab Results 09/09/23 Range/Units 10:08 WBC 6.6 (4.5-11.0) X10^3/uL RBC 4.14 (4.0-5.2) X10^6/uL Hgb 12.9 (12.0-16.0) g/dL Hct 38.1 (36-46) % MCV 92.0 (80-100) fL MCH 31.0 (26-34) PG MCHC 33.7 (30-36) % RDW 13.3 (11.6-14.8) % Plt Count 338 (150-400) X10^3/uL Neut % (Auto) 53.7 (50-75) % Lymph % (Auto) 32.0 (25-40) % [place] % (Auto) 10.2 (3-14) % Eos % (Auto) 2.9 (2-4) % Baso % (Auto) 1.2 (0-2) % Neut # (Auto) 3500 (2539-7747) /uL Lymph # (Auto) 2100 (0032-0140) /uL [place] # (Auto) 700 (0-900) /uL Eos # (Auto) 200 (0-450) /uL Baso # (Auto) 100 (0-100) /uL Sodium 131 L (137-145) mmol/L Potassium 4.6 (3.4-5.1) mmol/L Chloride 96 L (98-107) mmol/L Carbon Dioxide 21 L (22-32) mmol/L BUN 15 (7-17) mg/dL Creatinine 0.64 (0.52-1.04) mg/dL Estimated GFR > 60 (>60) mL/min BUN/Creatinine Ratio 23.4 H (6-22) Glucose 179 H (80-110) mg/dL Calcium 9.9 (8.4-10.2) mg/dL Total Bilirubin 1.0 (0.2-1.3) mg/dL AST 38 H (14-36) IU/L ALT 19 (<35) IU/L Alkaline Phosphatase 142 H (38-126) U/L Total Creatine Kinase 58 (30-135) U/L Troponin I < 0.012 (0.01-0.034) ng/mL Total Protein 9.0 H (6.3-8.2) g/dL Albumin 4.9 (3.5-5.0) g/dL Globulin 4.1 (1.7-4.1) g/dL Albumin/Globulin Ratio 1.2 (1.0-2.8) Lipase 137 (23-300) U/L Urine Dip Bedside Urine Glucose Negative Bedside Urine Bilirubin - Negative Bedside Urine Ketone - Negative Urine Specific [place] 1.010 Bedside Urine Occult Blood - Negative Bedside Urine pH 7.0 Bedside Urine Protein - Negative Bedside Urine Urobilinogen - Negative Bedside Urine Nitrite - Negative Bedside Urine Leukocytes - Negative Esterase Imaging Data CTA - brain/neck: Radiologist's Impression: PROCEDURE: CT ANGIO HEAD AND NECK INDICATIONS: vertigo bilateral leg weakness TECHNIQUE: After the administration of intravenous contrast, 1 mm thick sections acquired from the aortic arch through the [place] of [place]. 3-dimensional orurmzi-gxrtezqds-mtawdgdypo (MIP) and/or volume rendering reformats were acquired of the central intracranial vasculature and neck separately. For radiation dose reduction, the following was used: automated exposure control, adjustment of mA and/or kV according to patient size. COMPARISON: [facility], CT, CT ANGIO HEAD AND NECK, 05/31/2019, 17:48. FINDINGS: Image quality: Diagnostic. BRAIN: CSF spaces: Ventricles are normal in size and shape. Basal cisterns are patent. No extra-axial fluid collections. Brain: No significant abnormality of the brain can be seen. No area of abnormal intracranial enhancement is seen. Skull and face: Calvarium and facial bones appear intact, without suspicious lesions. Orbits appear normal. Sinuses: Sinuses and mastoids are clear. HEAD CT ANGIOGRAPHY: Anterior circulation: Intracranial internal carotid arteries are normal in size and flow. The flow within the paired anterior cerebral arteries is normal and symmetric. The flow within the middle cerebral arteries is normal and symmetric. The anterior communicating artery is seen. No aneurysms are seen. Posterior circulation: Visualized portions of the vertebral arteries demonstrate normal caliber, and join to form a normal appearing basilar artery. Flow within the posterior cerebral arteries is normal and symmetric. No aneurysms are seen. NECK CT ANGIOGRAPHY: Carotid system: The great vessels demonstrate a conventional anatomy as they arise from the aortic arch. The origins of the common carotid arteries appear patent. The common carotid arteries demonstrate normal caliber and courses. Calcified plaques are noted involving bilateral carotid bifurcation with less than 50 percent stenosis. The internal carotid arteries demonstrate normal calibers and courses. Posterior circulation: The origins of the vertebral arteries both appear widely patent. The more superior extracranial portions of both vertebral arteries also demonstrate normal courses and calibers. They join to form a normal appearing basilar artery. Soft tissues: Visualized neck soft tissues demonstrate no suspicious abnormalities. Biapical scarring and pleural calcification is seen. Bones: No suspicious bony lesions. Visualized cervical spine appears normally aligned. IMPRESSION: 1. No CT evidence of acute intracranial abnormalities. No area of abnormal contrast enhancement. 2. No hemodynamically significant stenosis or aneurysm is seen in the intracranial circulation. 3. No hemodynamically significant stenosis is seen in bilateral neck arteries. Calcified plaques are noted involving bilateral carotid bulbs and origin of bilateral internal carotid arteries with less than 50 percent stenosis. Any quantitative measurements of stenosis were performed using NASCET criteria. Dictated by: Per Dominguez M.D. on 09/09/2023 at 11:15 Approved by: Per Dominguez M.D. on 09/09/2023 at 11:1 ECG Data Interpretation: Normal sinus rhythm rate 64 ME interval 226 QRS [address] changes MDM Narrative Medical decision making narrative: Patient is 78-year-old female who presents today with sudden onset of dizziness. Sounds as though she actually does have history of vertigo and has had an episode similar to this not this intense couple months back. She was given Phenergan and Benadryl in the ambulance and now feels diffusely weak on exam she is bilateral lower extremity weakness but no other neurologic focal deficits Blood work has been reviewed: No leukocytosis or anemia, sodium 131 previously 135 chloride 96 carbon dioxide 21 BUN 15 creatinine 0.61 glucose 179, bilirubin 1.0, AST 38, negative troponin Imaging reviewed chest x-ray and CT angio without acute process, chest x-ray does show calcified pleural plaque EKG reviewed Patient feeling significantly better after medication she was able to ambulate to the restroom with minimal assistance She has history of vertigo and vertigo-like symptoms low suspicion for posterior CVA. Recommend supportive care only including meclizine and Zofran as needed. She may require outpatient MRI if symptoms continue Discharge Plan Departure Patient Disposition: Home Clinical Impression: Vertigo Instructions: DI for Vertigo Activity Restrictions/Additional Instructions: *You have been diagnosed with vertigo *What to do: At this time it appears that you have some vertigo. You may require an outpatient MRI. Please follow-up with your hearing test *Continue to take medications as directed Meclizine 25 mg every 8 hours if needed for dizziness Zofran 4 mg every 8 hours if needed for nausea or vomiting *Follow up with your primary care provider in 2-3 days or call [phone] *Return to ER if you should have increasing dizziness weakness difficulty speaking or any new, worsening or concerning symptoms Prescriptions: New meclizine 25 mg tablet 25 mg PO TID PRN (Reason: dizziness) Qty: 10 0RF ondansetron 4 mg tablet,disintegrating 4 mg PO Q8H PRN (Reason: nausea and vomiting) Qty: 10 0RF No Action levothyroxine 75 mcg tablet 75 mcg PO DAILY Qty: 90 3RF atenolol 50 mg tablet 50 mg PO BID Qty: 180 3RF atorvastatin 40 mg tablet 40 mg PO DAILY Qty: 90 3RF omeprazole 20 mg capsule,delayed release(DR/EC) 20 mg PO DAILY Qty: 90 3RF losartan 100 mg tablet 100 mg PO QAM Qty: 90 2RF silver sulfadiazine [Silvadene] 1 % cream 1 applic topical BID Qty: 50 3RF Rx Instructions: apply a 1.5 mm thickness amlodipine 10 mg tablet 10 mg PO DAILY Qty: 90 3RF acetaminophen 325 mg Tablet 325 mg PO PRN MDD 4000 mg PRN (Reason: pain) cholecalciferol (vitamin D3) [Vitamin D3] 25 mcg (1,000 unit) capsule 1,000 unit PO DAILY Referrals: Lance Ascencio MD [Primary Care Provider] - Stand Alone Forms: Patient Portal/API
[2023-09-09 10:44] LABS: Troponin I < 0.012 ng/mL (0.01-0.034)
--- NOTE | 2023-09-09 10:50 | DI.CT.S_ITS ---
PROCEDURE: CT ANGIO HEAD AND NECK INDICATIONS: vertigo bilateral leg weakness TECHNIQUE: After the administration of intravenous contrast, 1 mm thick sections acquired from the aortic arch through the [place] of [place]. 3-dimensional qafaaal-jpqjzhvek-afyjqxpbzw (MIP) and/or volume rendering reformats were acquired of the central intracranial vasculature and neck separately. For radiation dose reduction, the following was used: automated exposure control, adjustment of mA and/or kV according to patient size. COMPARISON: [facility], CT, CT ANGIO HEAD AND NECK, 05/31/2019, 17:48. FINDINGS: Image quality: Diagnostic. BRAIN: CSF spaces: Ventricles are normal in size and shape. Basal cisterns are patent. No extra-axial fluid collections. Brain: No significant abnormality of the brain can be seen. No area of abnormal intracranial enhancement is seen. Skull and face: Calvarium and facial bones appear intact, without suspicious lesions. Orbits appear normal. Sinuses: Sinuses and mastoids are clear. HEAD CT ANGIOGRAPHY: Anterior circulation: Intracranial internal carotid arteries are normal in size and flow. The flow within the paired anterior cerebral arteries is normal and symmetric. The flow within the middle cerebral arteries is normal and symmetric. The anterior communicating artery is seen. No aneurysms are seen. Posterior circulation: Visualized portions of the vertebral arteries demonstrate normal caliber, and join to form a normal appearing basilar artery. Flow within the posterior cerebral arteries is normal and symmetric. No aneurysms are seen. NECK CT ANGIOGRAPHY: Carotid system: The great vessels demonstrate a conventional anatomy as they arise from the aortic arch. The origins of the common carotid arteries appear patent. The common carotid arteries demonstrate normal caliber and courses. Calcified plaques are noted involving bilateral carotid bifurcation with less than 50 percent stenosis. The internal carotid arteries demonstrate normal calibers and courses. Posterior circulation: The origins of the vertebral arteries both appear widely patent. The more superior extracranial portions of both vertebral arteries also demonstrate normal courses and calibers. They join to form a normal appearing basilar artery. Soft tissues: Visualized neck soft tissues demonstrate no suspicious abnormalities. Biapical scarring and pleural calcification is seen. Bones: No suspicious bony lesions. Visualized cervical spine appears normally aligned. IMPRESSION: 1. No CT evidence of acute intracranial abnormalities. No area of abnormal contrast enhancement. 2. No hemodynamically significant stenosis or aneurysm is seen in the intracranial circulation. 3. No hemodynamically significant stenosis is seen in bilateral neck arteries. Calcified plaques are noted involving bilateral carotid bulbs and origin of bilateral internal carotid arteries with less than 50 percent stenosis. Any quantitative measurements of stenosis were performed using NASCET criteria. Dictated by: Per Dominguez M.D. on 09/09/2023 at 11:15 Approved by: Per Dominguez M.D. on 09/09/2023 at 11:19
--- NOTE | 2023-09-09 12:44 | PC.NURSE ---
pt has a walker at home .
== END 2023-09-09 12:45 | disposition home or self-care (01) ==
PROVIDERS: Emergency Provider Emergency Medicine; PCP Internal Medicine
DX: R42 Dizziness and giddiness (principal); R11.10 Vomiting, unspecified
CPT/HCPCS: 36415; 70496; 70498; 71045; 80053; 81003; 82550; 83690; 84484; 85025; 93005; 93010; 96360; 99284

== ENCOUNTER → 2023-12-11 07:29 | Outpatient (CLI) | payer MEDICARE, OTHER, SELFPAY ==
[2023-12-11 14:24] LABS: Hemoglobin A1C% w Est Avg Glu 6.1 % (4.0-6.0)
[2023-12-11 15:03] LABS: Alanine Aminotransferase 17 IU/L (<35); Albumin 4.8 g/dL (3.5-5.0); Albumin Globulin Ratio 1.5 (1.0-2.8); Alkaline Phosphatase 132 U/L (38-126); Aspartate Aminotransferase 30 IU/L (14-36); Bilirubin Total 0.8 mg/dL (0.2-1.3); Blood Urea Nitrogen 21 mg/dL (7-17); Calcium 9.6 mg/dL (8.4-10.2); Carbon Dioxide 22 mmol/L (22-32); Chloride 100 mmol/L (98-107); Cholesterol 128 mg/dL (140-199); Estimated Glomerular Filt Rate > 60 mL/min (>60); Globulin 3.2 g/dL (1.7-4.1); Glucose 123 mg/dL (80-110); HDL Cholesterol 55 mg/dL (40-60); HEMOLYSIS < 15 (0-50); LDL Cholesterol Calculated 49 mg/dL (<100); Potassium 4.5 mmol/L (3.4-5.1); Sodium 135 mmol/L (137-145); Triglycerides 119 mg/dL (35-150)
[2023-12-11 15:18] LABS: Free T4, Direct Thyroxine 1.34 ng/dL (0.78-2.19)
[2023-12-11 16:30] LABS: Microalbumin Urine Random 3.2 mg/dL (0-1.6)
[2023-12-11 16:33] LABS: Creatinine Urine Random 28.97 mg/dL
== END ==
PROVIDERS: PCP Internal Medicine; Referring Provider Internal Medicine; Visit Provider Internal Medicine
DX: E11.9 Type 2 diabetes mellitus without complications (principal); I10 Essential (primary) hypertension; E78.2 Mixed hyperlipidemia; E03.9 Hypothyroidism, unspecified
CPT/HCPCS: 36415; 80053; 80061; 82043; 82570; 83036; 84439; 84443

== ENCOUNTER 2024-04-27 11:06 | Inpatient (IN) | payer MEDICARE, OTHER, SELFPAY ==
[2024-04-27] VITALS (16 sets, daily range): BP systolic 148–187; BP diastolic 67–102; PULSE 64–75; RESP 14–33; TEMP 36.5–36.6; O2SAT 93–97; BMI 25.8
--- NOTE | 2024-04-27 11:18 | DI.RAD.S_ITS ---
PROCEDURE: XR CHEST 1V INDICATIONS: chest pain TECHNIQUE: One view of the chest was acquired. COMPARISON: [facility], CT, CT ABDOMEN PELVIS W CON, 10/08/2021, 0:12. [facility], CR, XR CHEST 1V, 09/09/2023, 10:15. [facility], CR, XR CHEST 2V, 06/27/2019, 13:41. FINDINGS: Surgical changes and devices: None. Lungs and pleura: Lungs are clear. No pleural effusions or pneumothorax. Mediastinum: Mediastinal contours appear normal except for a suspected moderate hiatal hernia behind the heart. Heart size is normal. Bones and chest wall: No suspicious bony lesions. Overlying soft tissues appear unremarkable. IMPRESSION: No acute cardiopulmonary abnormality is seen. Suspect moderate hiatal hernia behind the heart. A follow-up CT is scheduled for same day which will provide a more accurate assessment in that area. Dictated by: Cuong Hurley M.D. on 04/27/2024 at 11:47 Approved by: Cuong Hurley M.D. on 04/27/2024 at 11:48
[2024-04-27] MEDS: ONDANSETRON 4 MG/2 ML INJ IV (11:27)
--- NOTE | 2024-04-27 11:27 | DI.CT.S_ITS ---
PROCEDURE: CT ABDOMEN PELVIS W CON INDICATIONS: abd pain, n/v TECHNIQUE: After the administration of intravenous contrast, axial sections acquired from the lung bases to the pubic symphysis. Coronal and sagittal reformats were performed. For radiation dose reduction, the following was used: automated exposure control, adjustment of mA and/or kV according to patient size. COMPARISON: [facility], CT, CT ABDOMEN PELVIS W CON, 10/08/2021, 0:12. [facility], CT, CT ABDOMEN PELVIS W CON, 12/26/2019, 12:43. FINDINGS: Image quality: Diagnostic. Lower Chest: No significant findings other than mild atelectasis at the left lung base medially, posteriorly. ABDOMEN: Liver: No solid mass. Gallbladder: No radiopaque gallstones or wall thickening. Biliary ducts: No biliary dilation. Pancreas: No ductal dilation. Spleen: Size is within normal limits. Adrenal Glands: No adrenal nodules. Kidneys and Ureters: No hydronephrosis. No solid mass. No complex renal cystic lesion which requires follow up. Stomach and Bowel: Normal colonic caliber, without significant wall thickening. Right-sided colonic obstipation. Peritoneum: No abnormal intraperitoneal fluid. No free air. Ventral Wall: No significant ventral hernia. Abdominal Nodes: No retroperitoneal or mesenteric adenopathy by size criteria. Vessels: Aorta and inferior vena cava are normal in size. PELVIS: Pelvic Organs: Unremarkable. Bladder: No bladder wall thickening, accounting for underdistention. Pelvic Nodes: No enlarged lymph nodes. Miscellaneous: No inguinal hernias are seen. Moderate right-sided colonic obstipation Bones: No aggressive osseous abnormality. IMPRESSION: No acute disease. Generalized moderate right sided colonic obstipation as a potential etiology for reported abdominal pain. Dictated by: Cuong Hurley M.D. on 04/27/2024 at 12:56 Approved by: Cuong Hurley M.D. on 04/27/2024 at 12:58
[2024-04-27] MEDS: SODIUM CHLORIDE 0.9% 1,000 ML 1000 ML IV (11:29)
--- NOTE | 2024-04-27 11:29 | ED_ITS ---
HPI - Weakness General Chief complaint: Weakness Stated complaint: Nausea/chills/chest pressure-recent pelvic fx Time Seen by Provider: 04/27/24 11:25 Source: patient Mode of arrival: EMS History of Present Illness HPI Narrative: Patient is a 78-year-old female past medical history of hypothyroidism hypertension with a recent pelvic fracture presents to the ED for multiple complaints. States that she was discharged from the hospital several weeks ago on new medications including but not limited to gabapentin hydrocodone, states that the fracture was after mechanical trip and fall no surgical intervention was warranted. States that since she started taking all of the new medication she has had multiple complaints such as nausea abdominal pain vomiting also having some mild chest pressure but no actual chest pain or shortness of breath. States she just feels ?weak no other symptoms at this time Related Data Home Medications Medication Instructions Recorded Confirmed acetaminophen 325 mg tablet 325 mg PO PRN PRN pain 05/31/19 12/14/23 cholecalciferol (vitamin D3) 25 1,000 unit PO DAILY 10/23/20 12/14/23 mcg (1,000 unit) capsule (Vitamin D3) Previous Rx's Medication Instructions Recorded losartan 100 mg tablet 100 mg PO QAM #90 tabs 06/09/23 amlodipine 10 mg tablet 10 mg PO DAILY #90 tabs 06/15/23 silver sulfadiazine 1 % topical 1 applic topical BID #50 grams 06/15/23 cream (Silvadene) Disabled Parking #1 ea 10/26/23 atorvastatin 40 mg tablet 40 mg PO DAILY #90 tabs 02/01/24 omeprazole 20 mg capsule,delayed 20 mg PO DAILY #90 caps 02/01/24 release hydrocodone 5 mg-acetaminophen 325 1 tab PO Q6H PRN pain #60 tabs 04/19/24 mg tablet atenolol 50 mg tablet 50 mg PO BID #180 tabs 04/20/24 levothyroxine 75 mcg tablet 75 mcg PO DAILY #90 tabs 04/20/24 Allergies Allergy/AdvReac Type Severity Reaction Status Date / Time bacitracin Allergy Unknown Verified 04/27/24 11:21 [From NEOSPORIN ([id number])] codeine [CODEINE] Allergy Unknown Verified 04/27/24 11:21 morphine [MORPHINE] Allergy Unknown Verified 04/27/24 11:21 neomycin Allergy Unknown Verified 10/02/24 11:21 [From NEOSPORIN ([id number])] polymyxin B Allergy Unknown Verified 04/27/24 11:21 [From NEOSPORIN ([id number])] tramadol AdvReac Severe GI Upset Verified 04/27/24 11:21 cephalexin AdvReac Intermediate Shaky/Nervo Verified 04/27/24 11:21 us Review of Systems Review of Systems Narrative: General: Denies fever, chills, weight loss positive for weakness HEENT: Denies headache, eye drainage, eye irritation, head trauma, sore throat, voice change Cardiovascular: Positive for chest pressure, Denies palpitations, shortness of breath, tachycardia Respiratory: Denies any shortness of breath, cough, wheeze, stridor GI/: Denies any abdominal pain, nausea, vomiting, diarrhea, bright red blood per rectum, melanotic stools, urinary frequency, urinary retention, dysuria, hematuria MSK: Denies any joint pain, muscle pains, swelling Skin: Denies any rashes, lesions, discoloration Neuro: Denies any headache, lightheadedness, dizziness, fainting, weakness Psych: Denies SI/HI Patient History Medical History (Updated 04/27/24 @ 14:11 by Aditya Cervantes DO) History of adenomatous polyp of colon Hemorrhoids, internal Fractures (~2018) Mumps Measles Chicken pox Tinnitus (~2018) Hearing loss Cataracts, bilateral (~1999) GERD (gastroesophageal reflux disease) (~2006) Pulmonary embolism (~2010) Osteoporosis (~2018) Type 2 diabetes mellitus Essential hypertension (~2008) Mixed hyperlipidemia Acquired hypothyroidism Surgical History Anesthesia Status post surgical manipulation of knee joint (~2011) Compartment syndrome (~2011) Broken leg (~2010) History of back surgery (~2000) Family History Father Stroke Mother History of heart disease Social History marital status: Smoking Status: Never smoker substance use type: does not use Smoking Status: Never smoker alcohol intake frequency: 0-2 drinks per day Substance Use Type: does not use Exam Narrative Exam Narrative: General: Cooperative, comfortable, well-developed, not in acute distress HEENT: Normocephalic, atraumatic, PERRLA, normal sclera, eyelids normal, Neck: Active full range of motion, atraumatic Chest: Normal to inspection, negative crepitus, no overlying erythema ecchymosis Respiratory: Normal respiratory effort, not in acute respiratory distress, clear to auscultation bilaterally negative cough, wheeze, tachypnea, rhonchi, rales Cardiology: Regular rate rhythm negative gallop, murmur, rubs GI/: Normal to inspection, soft, nonrigid, no tenderness to palpation, exam deferred MSK: Full range of active range of motion of all 4 extremities, atraumatic Skin: No rashes lesions noted Neuro: Alert awake oriented x3, moves all 4 extremities spontaneously, cranial nerves intact, able to answer all questions appropriately follows commands appropriately Psych: Cooperative, negative suicidal or homicidal ideations Initial Vital Signs Initial Vital Signs: Vital Signs Temperature 97.7 F 04/27/24 11:10 Pulse Rate 65 04/27/24 11:10 Respiratory Rate 14 04/27/24 11:10 Blood Pressure 164/79 H 04/27/24 11:10 Pulse Oximetry 97 04/27/24 11:10 Oxygen Delivery Method Room Air 04/27/24 11:10 Course Orders Ordered: ED Orders 04/27/24 11:15 Complete Blood Count AUTO DIFF Stat Comprehensive Metabolic Panel Stat Lipase Stat Magnesium Stat NT-proBNP (BNP-Adult 18+) Stat PTT Partial Thromboplastin [place] Stat Prothrombin Time INR Stat Troponin & CK Cardiac Panel Stat 04/27/24 11:18 XR chest 1V Stat EKG-12 Lead Stat 04/27/24 11:27 CT abdomen pelvis w con Stat 04/27/24 11:31 Covid-19 + FLU A/B + RSV - PCR Stat 04/27/24 11:50 Ammonia (NH3) Stat 04/27/24 12:13 CT head/brain wo con Stat Ondansetron HCl (Ondansetron 4 Mg/2 Ml Inj) 4 mg IV NOW PRN PRN Reason: Nausea And Vomiting Last Admin: 04/27/24 11:27 Dose: 4 mg Documented By: KB Discontinued Medications Aspirin (Aspirin 81 Mg Chew Tab) 324 mg PO NOW ONE Stop: 04/27/24 11:18 Last Admin: 04/27/24 11:20 Dose: Not Given Documented By: SANTOS Sodium Chloride (Normal Saline 0.9%) 1,000 mls @ 1,000 mls/hr IV BOLUS ONE Stop: 04/27/24 12:25 Last Infusion: 04/27/24 13:07 Dose: Infused Documented By: Admin: 04/27/24 11:29 Dose: 1,000 mls/hr Documented By: SANTOS Ondansetron HCl (Ondansetron 4 Mg Odt) 4 mg SL NOW PRN PRN Reason: Nausea And Vomiting Ondansetron HCl (Ondansetron 4 Mg/2 Ml Inj) 4 mg IV NOW ONE Stop: 04/27/24 11:27 Last Admin: 04/27/24 11:31 Dose: Not Given Documented By: SANTOS Pantoprazole Sodium (Pantoprazole 40 Mg Vial) 40 mg IV NOW ONE Stop: 04/27/24 11:27 Last Admin: 04/27/24 11:30 Dose: 40 mg Documented By: SANTOS Vital Signs Vital signs: Vital Signs - 8 hr 04/27/24 11:10 04/27/24 11:11 04/27/24 11:12 Temperature 97.7 F Pulse Rate 65 Respiratory Rate 14 Blood Pressure 164/79 H 164/79 H Pulse Oximetry 97 96 Oxygen Delivery Method Room Air 04/27/24 11:12 04/27/24 11:30 04/27/24 11:30 Temperature Pulse Rate 66 65 Respiratory Rate Blood Pressure 156/74 H Pulse Oximetry 95 94 Oxygen Delivery Method 04/27/24 12:00 04/27/24 12:01 04/27/24 12:01 Temperature Pulse Rate 65 64 Respiratory Rate Blood Pressure 156/70 H Pulse Oximetry 93 93 Oxygen Delivery Method 04/27/24 12:30 04/27/24 12:32 04/27/24 12:32 Temperature Pulse Rate 74 71 Respiratory Rate 16 Blood Pressure 148/67 H Pulse Oximetry 95 95 Oxygen Delivery Method MDM - Weakness Differential Diagnosis Differential diagnosis: Likely acute myocardial infarction, anemia, sepsis, dehydration and other (Electrolyte abnormality, med ADR) Lab Data Attestation: I reviewed the patient's lab results. 04/27/24 11:15 04/27/24 11:15 Labs: Lab Results 04/27/24 04/27/24 Range/Units 11:15 11:50 WBC 9.1 (4.5-11.0) X10^3/uL RBC 3.88 L (4.0-5.2) X10^6/uL Hgb 12.3 (12.0-16.0) g/dL Hct 35.2 L (36-46) % MCV 90.8 (80-100) fL MCH 31.7 (26-34) PG MCHC 34.9 (30-36) % RDW 12.7 (11.6-14.8) % Plt Count 417 H (150-400) X10^3/uL Neut % (Auto) 81.9 H (50-75) % Lymph % (Auto) 11.6 L (25-40) % [place] % (Auto) 5.2 (3-14) % Eos % (Auto) 0.9 L (2-4) % Baso % (Auto) 0.4 (0-2) % Neut # (Auto) 7500 H (9658-5921) /uL Lymph # (Auto) 1100 (7336-9217) /uL [place] # (Auto) 500 (0-900) /uL Eos # (Auto) 100 (0-450) /uL Baso # (Auto) 0 (0-100) /uL PT 12.0 (9.4-12.5) SECONDS INR 1.0 (0.9-1.3) APTT 30 (25.1-36.5) SECONDS Sodium 119 L* (137-145) mmol/L Potassium 4.1 (3.4-5.1) mmol/L Chloride 90 L (98-107) mmol/L Carbon Dioxide 19 L (22-32) mmol/L BUN 14 (7-17) mg/dL Creatinine 0.60 (0.52-1.04) mg/dL Estimated GFR > 60 (>60) mL/min BUN/Creatinine Ratio 23.3 H (6-22) Glucose 167 H (80-110) mg/dL Calcium 9.4 (8.4-10.2) mg/dL Magnesium 1.7 (1.6-2.3) mg/dL Total Bilirubin 1.1 (0.2-1.3) mg/dL AST 30 (14-36) IU/L ALT 17 (<35) IU/L Alkaline Phosphatase 212 H (38-126) U/L Ammonia < 9 L (9-30) umol/L Total Creatine Kinase 32 (30-135) U/L Troponin I < 0.012 (0.01-0.034) ng/mL NT-Pro-B Natriuret Pep 875 H (<450) pg/mL Total Protein 7.8 (6.3-8.2) g/dL Albumin 4.1 (3.5-5.0) g/dL Globulin 3.7 (1.7-4.1) g/dL Albumin/Globulin Ratio 1.1 (1.0-2.8) Lipase 159 (23-300) U/L MDM Narrative Medical decision making narrative: Patient is a 78-year-old female history of hypothyroidism hypertension with a recent fracture of her pelvis was started on multiple new medications for this due to no surgical intervention warranted. Patient presents for multiple complaints including chest pressure nausea vomiting abdominal pain. Lab work was consistent with hyponatremia at 119., she came in complaining of diffuse weakness abdominal pain nausea vomiting after she was released from outside hospital for a pelvic fracture that did not require surgical intervention. CT scan without any acute findings did note some mild constipation. Given hyponatremia at 119 with diffuse weakness patient will be admitted for the hospital for continued electrolyte replacement The patient's management plan was discussed Dr. Prince, who agrees to admit the patient to their service and assumes care of this patient at this time. Full admission orders will be placed by the primary team. Discharge Plan Departure Patient Disposition: Admitted As Inpatient Clinical Impression: Acute hyponatremia, Constipation
[2024-04-27] MEDS: PANTOPRAZOLE 40 MG VIAL IV (11:30)
[2024-04-27 11:32] LABS: Add Manual Diff / Slide Review NO; Basophils Absolute Auto 0 /uL (0-100); Basophils Percent Auto 0.4 % (0-2); Eosinophils Absolute Auto 100 /uL (0-450); Eosinophils Percent Auto 0.9 % (2-4); Hematocrit 35.2 % (36-46); Hemoglobin 12.3 g/dL (12.0-16.0); Lymphocytes Absolute Auto 1100 /uL (1100-4500); Lymphocytes Percent Auto 11.6 % (25-40); Mean Corpuscular HGB Conc 34.9 % (30-36); Mean Corpuscular Hemoglobin 31.7 PG (26-34); Mean Corpuscular Volume 90.8 fL (80-100); Monocytes Absolute Auto 500 /uL (0-900); Monocytes Percent Auto 5.2 % (3-14); Neutrophils Absolute Auto 7500 /uL (1500-7000); Neutrophils Percent Auto 81.9 % (50-75); Platelet Count 417 X10^3/uL (150-400); Red Blood Cell Count 3.88 X10^6/uL (4.0-5.2); Red Cell Distribution Width 12.7 % (11.6-14.8); White Blood Cell Count 9.1 X10^3/uL (4.5-11.0)
--- NOTE | 2024-04-27 11:40 | EKG_ITS ---
[facility] [address] [place] [address] Test Date: 2024-04-27 Pat Name: Candelaria Weaver Department: [facility] Room: Gender: Female [employer] Planner: JACKELINE : 1945 Requested By: Order Number: [id number] Reading MD: Lance Ascencio MD Measurements Intervals [place] Rate: 61 P: 51 AR: 212 QRS: -28 QRSD: 158 T: 63 QT: 484 QTc: 487 Interpretive Statements Sinus rhythm with 1st degree AV block Left bundle branch block, seen off/on since 2018 Electronically Signed On 04-28-2024 7:57:59 PDT by Lance Ascencio MD
[2024-04-27 11:44] LABS: PTT Partial Thromboplastin Tim 30 SECONDS (25.1-36.5)
[2024-04-27 11:55] LABS: Alanine Aminotransferase 17 IU/L (<35); Albumin 4.1 g/dL (3.5-5.0); Albumin Globulin Ratio 1.1 (1.0-2.8); Alkaline Phosphatase 212 U/L (38-126); Aspartate Aminotransferase 30 IU/L (14-36); BUN Creatinine Ratio 23.3 (6-22); Bilirubin Total 1.1 mg/dL (0.2-1.3); Blood Urea Nitrogen 14 mg/dL (7-17); Calcium 9.4 mg/dL (8.4-10.2); Carbon Dioxide 19 mmol/L (22-32); Chloride 90 mmol/L (98-107); Creatine Kinase 32 U/L (30-135); Estimated Glomerular Filt Rate > 60 mL/min (>60); Globulin 3.7 g/dL (1.7-4.1); Glucose 167 mg/dL (80-110); HEMOLYSIS < 15 (0-50); Lipase 159 U/L (23-300); Magnesium 1.7 mg/dL (1.6-2.3); Potassium 4.1 mmol/L (3.4-5.1); Total Protein 7.8 g/dL (6.3-8.2)
[2024-04-27 11:56] LABS: Sodium 119 mmol/L (137-145)
[2024-04-27 12:06] LABS: NT-proBNP (BNP-Adult 18+) 875 pg/mL (<450); Troponin I < 0.012 ng/mL (0.01-0.034)
[2024-04-27 12:06] LABS: Ammonia (NH3) < 9 umol/L (9-30)
--- NOTE | 2024-04-27 12:13 | DI.CT.S_ITS ---
PROCEDURE: CT HEAD/BRAIN WO CON INDICATIONS: confusion weakness TECHNIQUE: Noncontrast 4.5 mm thick angled axial sections acquired from the foramen magnum to the vertex, with coronal and sagittal reformats. For radiation dose reduction, the following was used: automated exposure control, adjustment of mA and/or kV according to patient size. COMPARISON: [facility], CT, CT ANGIO HEAD AND NECK, 09/09/2023, 11:01. FINDINGS: Image quality: Diagnostic. CSF spaces: Basal cisterns are patent. No extra-axial fluid collections. The ventricles are symmetric in size and shape. Brain: No intracranial bleeds or masses. There is cerebral volume loss for age, with resultant ventricular and sulcal prominence. There are prominent periventricular and deep white matter chronic small vessel ischemic changes. There is intracranial internal carotid artery atherosclerosis. Skull and face: Calvarium and visualized facial bones appear intact, without suspicious lesions. Sinuses: Visualized sinuses and mastoids are clear. IMPRESSION: Microvascular atherosclerotic change within the deep white matter of each hemisphere, and no hemorrhage, mass or acute stroke is suspected. Dictated by: Cuong Hurley M.D. on 04/27/2024 at 12:45 Approved by: Cuong Hurley M.D. on 04/27/2024 at 12:46
--- NOTE | 2024-04-27 13:13 | PC.NURSE ---
Pt feeling weak,shakey,nauseated and chills. Pt was having chest pain in field per medics. Pt having back/hip pain and a POP with nausea in ED. pt has recent pelvic fracture. pt appers very pale
--- NOTE | 2024-04-27 14:31 | P.HP_ITS ---
History of Present Illness History of Present Illness Date Patient Seen: 04/27/24 Chief complaint: Nausea/chills/chest pressure-recent pelvic fx Narrative: Pt is a 78yo woman with DM type 2, HTN, hypothyroidism, hyperlipidemia who presented with fatigue, muscle aches, and cough. The pt reports that on 04/06 she was leaving a restaurant and fell onto her left side when going down stairs. She reportedly sustained a pelvic fracture. She was hospitalized at [facility] until 04/09. Surgery was not recommended. The pt was discharged home with plans for home health PT. Approximately 2-3 days after being hospitalized she started to feel bad. She states she was excessively fatigued, and had body aches. She denies any fevers, abdominal pain, nausea or vomiting but does report dry heaving at times. She states that she was drinking a lot of water during this time. She started to develop a wet sounding cough yesterday. She has been slightly constipated due to pain medication for her pelvic fracture, but this has been managed with Miralax at home. She had not had a BM in around 2 days. Due to concerns for pneumonia with her cough and fatigue, the pt came to the ED today for evaluation. In the ED, the pt had CXR completed that was negative. CT abd/pelvis was completed that showed moderate constipation. Head CT was completed that was negative. Lab work revealed significant hyponatremia with sodium of 119. [facility] Medical History (Updated 04/27/24 @ 14:11 by Aditya Cervantes DO) History of adenomatous polyp of colon Hemorrhoids, internal Fractures (~2018) Mumps Measles Chicken pox Tinnitus (~2018) Hearing loss Cataracts, bilateral (~1999) GERD (gastroesophageal reflux disease) (~2006) Pulmonary embolism (~2010) Osteoporosis (~2018) Type 2 diabetes mellitus Essential hypertension (~2008) Mixed hyperlipidemia Acquired hypothyroidism Surgical History Anesthesia Status post surgical manipulation of knee joint (~2011) Compartment syndrome (~2011) Broken leg (~2010) History of back surgery (~2000) Family History Father Stroke Mother History of heart disease Social History marital status: household members: spouse Smoking Status: Never smoker substance use type: does not use Meds Home Medications and Allergies Home Medications Medication Instructions Recorded Confirmed Type acetaminophen 325 mg tablet 325 mg PO PRN PRN pain 05/31/19 04/27/24 History cholecalciferol (vitamin D3) 25 1,000 unit PO DAILY 10/23/20 04/27/24 History mcg (1,000 unit) capsule (Vitamin D3) losartan 100 mg tablet 100 mg PO QAM #90 tabs 06/09/23 04/27/24 Rx amlodipine 10 mg tablet 10 mg PO DAILY #90 tabs 06/15/23 04/27/24 Rx Disabled Parking #1 ea 10/26/23 04/27/24 Rx atorvastatin 40 mg tablet 40 mg PO DAILY #90 tabs 02/01/24 04/27/24 Rx omeprazole 20 mg capsule,delayed 20 mg PO DAILY #90 caps 02/01/24 04/27/24 Rx release hydrocodone 5 mg-acetaminophen 325 1 tab PO Q6H PRN pain #60 tabs 04/19/24 04/27/24 Rx mg tablet levothyroxine 75 mcg tablet 75 mcg PO DAILY #90 tabs 04/20/24 04/27/24 Rx atenolol 50 mg tablet 100 mg PO BEDTIME 04/27/24 04/27/24 History Allergies Allergy/AdvReac Type Severity Reaction Status Date / Time bacitracin Allergy Unknown Verified 04/27/24 11:21 [From NEOSPORIN ([id number]-[id number])] codeine [CODEINE] Allergy Unknown Verified 04/27/24 11:21 morphine [MORPHINE] Allergy Unknown Verified 04/27/24 11:21 neomycin Allergy Unknown Verified 04/27/24 11:21 [From NEOSPORIN ([id number])] polymyxin B Allergy Unknown Verified 04/27/24 11:21 [From NEOSPORIN ([id number])] tramadol AdvReac Severe GI Upset Verified 04/27/24 11:21 cephalexin AdvReac Intermediate Shaky/Nervo Verified 04/27/24 11:21 us Exam Vital Signs (past 8 hours): - 04/27/24 11:10 04/27/24 11:11 04/27/24 11:12 Temperature 97.7 F Pulse Rate 65 Respiratory Rate 14 Blood Pressure 164/79 H 164/79 H Pulse Oximetry 97 96 Oxygen Delivery Method Room Air 04/27/24 11:12 04/27/24 11:30 04/27/24 11:30 Temperature Pulse Rate 66 65 Respiratory Rate Blood Pressure 156/74 H Pulse Oximetry 95 94 Oxygen Delivery Method 04/27/24 12:00 04/27/24 12:01 04/27/24 12:01 Temperature Pulse Rate 65 64 Respiratory Rate Blood Pressure 156/70 H Pulse Oximetry 93 93 Oxygen Delivery Method 04/27/24 12:30 04/27/24 12:32 04/27/24 12:32 Temperature Pulse Rate 74 71 Respiratory Rate 16 Blood Pressure 148/67 H Pulse Oximetry 95 95 Oxygen Delivery Method Oxygen Delivery Method Room Air Narrative Exam Narrative: Gen: NAD, sitting comfortably in bed, appears fatigued CV: RRR, no murmurs Resp: clear to auscultation bilaterally, no wheezes or crackles Abd: soft, nontender, nondistended Ext: no edema Neuro: no gross deficits Objective Labs 04/27/24 11:15 04/27/24 11:15 Labs: Laboratory Results - last 24 hr 04/27/24 04/27/24 11:15 11:50 WBC 9.1 RBC 3.88 L Hgb 12.3 Hct 35.2 L MCV 90.8 MCH 31.7 MCHC 34.9 RDW 12.7 Plt Count 417 H Neut % (Auto) 81.9 H Lymph % (Auto) 11.6 L [place] % (Auto) 5.2 Eos % (Auto) 0.9 L Baso % (Auto) 0.4 Neut # (Auto) 7500 H Lymph # (Auto) 1100 [place] # (Auto) 500 Eos # (Auto) 100 Baso # (Auto) 0 PT 12.0 INR 1.0 APTT 30 Sodium 119 L* Potassium 4.1 Chloride 90 L Carbon Dioxide 19 L BUN 14 Creatinine 0.60 Estimated GFR > 60 BUN/Creatinine Ratio 23.3 H Glucose 167 H Calcium 9.4 Magnesium 1.7 Total Bilirubin 1.1 AST 30 ALT 17 Alkaline Phosphatase 212 H Ammonia < 9 L Total Creatine Kinase 32 Troponin I < 0.012 NT-Pro-B Natriuret Pep 875 H Total Protein 7.8 Albumin 4.1 Globulin 3.7 Albumin/Globulin Ratio 1.1 Lipase 159 Assessment & Plan Assessment & Plan narrative: Pt is a 78yo woman with DM type 2, HTN, hypothyroidism, hyperlipidemia who presented with fatigue, muscle aches, and cough. 1) Acute hyponatremia: Sodium of 135 in 11/2023. S/P 1 L bolus in the ED. Most likely due to COVID, excess hydration. - Repeat BMP now after bolus in the ED - mIVF at 100cc/hr - Trend with BMP in the morning 2) COVID: Symptoms overall mild at this time, primarily fatigue, mild cough. - Incentive spirometer - No additional treatment warranted at this time 2) Constipation: Likely due to narcotic usage after pelvic fracture. Moderate on abdominal CT. - Miralax daily - Senna nightly - Dulcolax PRN 3) Pelvic fracture: Not specifically noted on abdominal/pelvic CT - Try to limit narcotic use as likely exacerbating constipation - Tylenol PRN for pain - Hydrocodone for break-through pain - PT/OT consulted 4) HTN: BP slightly elevated, not to severe range - Continue home Amlodipine, Atenolol, Losartan 5) DM Type 2: Diet controlled. Last A1C 11/2023 6.1. - Carb controlled diet 6) Hyperlipidemia: - Continue home statin 7) Hypothyroidism: - Continue home Levothyroxine Diet: Carb controlled DVT ppx: Lovenox Code: Full Dispo: Pending improvement in sodium and symptoms. Time-Based Coding :: [TOTAL MINUTES] spent with patient and on the chart (including review of chart, obtaining history, exam, reviewing outside data, placing orders, documenting exam and treatment plan, and counseling patient) on [DATE]. PROFEE Charge Codes Initial inpatient/observation care: [id number]
--- NOTE | 2024-04-27 16:02 | PC.NURSE ---
Day shift: In room from ED at approx 1600. She does c/o pelvic pain with moving from slider board to bed. Has a cough. Resp panel taken and sent to lab by this insurance writer at approx 1600. Oriented to room and call light. Pt states I was getting around the house with FWW but it wasn't easy. Bed alarm is on. She will be a high fall risk for now. She is asking for ice chips and those are provided.
[2024-04-27 16:48] LABS: Influenza A - CEPHEID Flu A NEGATIVE (NEGATIVE); Influenza B - CEPHEID Flu B NEGATIVE (NEGATIVE); Respiratory Syncytial Virus Negative (Negative)
[2024-04-27 16:51] LABS: COVID-19 CEPHEID 4-PLEX PCR POSITIVE (Negative)
[2024-04-27] MEDS: SODIUM CHLORIDE 0.9% 1,000 ML 100 ML IV (17:39)
[2024-04-27] MEDS: ACETAMINOPHEN 325 MG TABLET PO (17:42)
[2024-04-27 20:02] LABS: BUN Creatinine Ratio 18.8 (6-22); Blood Urea Nitrogen 13 mg/dL (7-17); Calcium 9.2 mg/dL (8.4-10.2); Carbon Dioxide 19 mmol/L (22-32); Chloride 93 mmol/L (98-107); Estimated Glomerular Filt Rate > 60 mL/min (>60); Glucose 153 mg/dL (80-110); HEMOLYSIS < 15 (0-50); Sodium 122 mmol/L (137-145)
[2024-04-27] MEDS: SENNOSIDES 8.6 MG TABLET 17.2 MG PO (21:52)
[2024-04-27] MEDS: atenoloL 50 MG TABLET PO (21:52)
[2024-04-28] VITALS: BP 146/77; PULSE 64; RESP 20; TEMP 36.7; O2SAT 94
[2024-04-28] MEDS: ACETAMINOPHEN 325 MG TABLET 650 MG PO ×4 (04:41→22:35)
[2024-04-28] MEDS: BENZONATATE 100 MG CAPSULE PO (04:42)
[2024-04-28] MEDS: guaiFENesin Solution 100 MG/5 ML UDC PO (04:42)
[2024-04-28 06:00] VITALS: BP 156/91; PULSE 73; RESP 20; TEMP 37.1; O2SAT 96
[2024-04-28] MEDS: PANTOPRAZOLE DR 20 MG TABLET PO (07:00)
[2024-04-28] MEDS: LEVOTHYROXINE 75 MCG TABLET PO (07:00)
--- NOTE | 2024-04-28 07:37 | PM.PN.1 ---
Subjective Subjective Date Patient Seen: 04/28/24 Time Patient Seen: 07:37 Interval history: Patient admitted yesterday via the emergency department with weakness cough and discovered to have hyponatremia and to be COVID positive. Symptoms for the COVID probably been present for 7-10 days. She was recently hospitalized at [facility] after falling and sustaining a pelvic fracture. She also has been quite obstipated likely secondary to narcotic medication for her pelvic fracture, and been trying to hydrate well to help with that In any event she was not felt to be appropriate to go home and was admitted because of the hyponatremia and overall weakness Overnight she has done okay. Sodium is improved this morning. Exam Vital Signs (past 8 hours): - 04/28/24 00:00 04/28/24 06:00 Temperature 98.0 F 98.7 F Pulse Rate 64 73 Respiratory Rate 20 20 Blood Pressure 146/77 H 156/91 H Pulse Oximetry 94 96 Oxygen Delivery Method Room Air Oxygen Flow Rate 0 Objective Labs 04/27/24 11:15 04/27/24 19:01 Labs: Laboratory Results - last 24 hr 04/27/24 04/27/24 04/27/24 11:15 11:50 16:01 WBC 9.1 RBC 3.88 L Hgb 12.3 Hct 35.2 L MCV 90.8 MCH 31.7 MCHC 34.9 RDW 12.7 Plt Count 417 H Neut % (Auto) 81.9 H Lymph % (Auto) 11.6 L [place] % (Auto) 5.2 Eos % (Auto) 0.9 L Baso % (Auto) 0.4 Neut # (Auto) 7500 H Lymph # (Auto) 1100 [place] # (Auto) 500 Eos # (Auto) 100 Baso # (Auto) 0 PT 12.0 INR 1.0 APTT 30 Sodium 119 L* Potassium 4.1 Chloride 90 L Carbon Dioxide 19 L BUN 14 Creatinine 0.60 Estimated GFR > 60 BUN/Creatinine Ratio 23.3 H Glucose 167 H Calcium 9.4 Magnesium 1.7 Total Bilirubin 1.1 AST 30 ALT 17 Alkaline Phosphatase 212 H Ammonia < 9 L Total Creatine Kinase 32 Troponin I < 0.012 NT-Pro-B Natriuret Pep 875 H Total Protein 7.8 Albumin 4.1 Globulin 3.7 Albumin/Globulin Ratio 1.1 Lipase 159 SARS-CoV-2 (PCR) Positive H Influenza A (RT-PCR) Flu a negative Influenza B (RT-PCR) Flu b negative RSV (PCR) Negative 04/27/24 19:01 WBC RBC Hgb Hct MCV MCH MCHC RDW Plt Count Neut % (Auto) Lymph % (Auto) [place] % (Auto) Eos % (Auto) Baso % (Auto) Neut # (Auto) Lymph # (Auto) [place] # (Auto) Eos # (Auto) Baso # (Auto) PT INR APTT Sodium 122 L Potassium 4.0 Chloride 93 L Carbon Dioxide 19 L BUN 13 Creatinine 0.69 Estimated GFR > 60 BUN/Creatinine Ratio 18.8 Glucose 153 H Calcium 9.2 Magnesium Total Bilirubin AST ALT Alkaline Phosphatase Ammonia Total Creatine Kinase Troponin I NT-Pro-B Natriuret Pep Total Protein Albumin Globulin Albumin/Globulin Ratio Lipase SARS-CoV-2 (PCR) Influenza A (RT-PCR) Influenza B (RT-PCR) RSV (PCR) [facility] Medical History (Updated 04/27/24 @ 14:11 by Aditya Cervantes DO) History of adenomatous polyp of colon Hemorrhoids, internal Fractures (~2018) Mumps Measles Chicken pox Tinnitus (~2018) Hearing loss Cataracts, bilateral (~1999) GERD (gastroesophageal reflux disease) (~2006) Pulmonary embolism (~2010) Osteoporosis (~2018) Type 2 diabetes mellitus Essential hypertension (~2008) Mixed hyperlipidemia Acquired hypothyroidism Surgical History Anesthesia Status post surgical manipulation of knee joint (~2011) Compartment syndrome (~2011) Broken leg (~2010) History of back surgery (~2000) Family History Father Stroke Mother History of heart disease Social History marital status: household members: spouse Smoking Status: Never smoker substance use type: does not use Assessment & Plan Assessment & Plan narrative: 1. Hyponatremia-improved with IV fluids. Continue to monitor and trend. 2. COVID-patient not hypoxic and has had symptoms for greater than a week. No indication for treatment specifically at this time. 3. Diabetes-adequate control for now. Continue carb consistent diet with coverage insulin as needed 4. Hypertension-intermittently hypertensive but not dangerously so. Continue patient's usual medications as has been ordered 5. Pelvic fracture-continues with significant pain. Continue with pain meds and PT/OT. 6. Constipation-continue with aggressive bowel meds including the MiraLax daily as well as other as needed medications. Time-Based Coding :: [TOTAL MINUTES] spent with patient and on the chart (including review of chart, obtaining history, exam, reviewing outside data, placing orders, documenting exam and treatment plan, and counseling patient) on [DATE]. PROFEE Charge codes Subsequent inpatient/observation care: 20611
[2024-04-28 08:04] VITALS: BP 162/77; PULSE 64; RESP 15; TEMP 36.8; O2SAT 92
[2024-04-28] MEDS: ENOXAPARIN 40 MG/0.4 ML SYRINGE SUBCUT (08:36)
[2024-04-28] MEDS: polyethylene glycoL 3350 17 GM POWD.PACK PO (08:36)
[2024-04-28 08:37] VITALS: BP 162/77; PULSE 67
[2024-04-28] MEDS: ATORVASTATIN 20 MG TABLET 40 MG PO (08:37)
[2024-04-28] MEDS: LOSARTAN 50 MG TABLET 100 MG PO (08:37)
[2024-04-28] MEDS: CHOLECALCIFEROL (VITAMIN D3) 1,000 UNIT TABLET 1000 UNIT PO (08:38)
[2024-04-28] MEDS: atenoloL 50 MG TABLET PO (08:38)
[2024-04-28] MEDS: AMLODIPINE 5 MG TABLET 10 MG PO (08:38)
--- NOTE | 2024-04-28 12:13 | OT.IP.EVAL ---
Current Diagnoses COVID-19 (04/27/24) Past Medical History (Last Updated 06/13/22 @ 09:28 by Lance Ascencio MD) Acquired hypothyroidism Cataracts, bilateral (~1999) Chicken pox Essential hypertension (~2008) Fractures (~2018) GERD (gastroesophageal reflux disease) (~2006) Hearing loss Hemorrhoids, internal History of adenomatous polyp of colon Measles Mixed hyperlipidemia Mumps Osteoporosis (~2018) Pulmonary embolism (~2010) Tinnitus (~2018) Type 2 diabetes mellitus Surgical History (Last Reviewed 12/18/21 @ 16:00 by Gabbi Knapp MA) Anesthesia Broken leg (~2010) Compartment syndrome (~2011) History of back surgery (~2000) Status post surgical manipulation of knee joint (~2011) Occupational Therapy Inpatient Evaluation/Re-Eval M1 PT/OT-IP Prior Functional Status Start: 04/28/24 14:25 Freq: NEEDED Status: Active Protocol: Document 04/28/24 14:26 CGR (Rec: 04/28/24 14:37 CGR [id number]) Medical Review Prior Functional Status Medical History Reviewed Yes Communication Pt is an effective verbal communicator but is [place]. Mobility and Gait Pt was IND in all mobility without AD prior to recent fall in March Activities of Daily Living and IADL's Pt was IND in all ADLs and IADLS prior to recent fall in March. Social History Household Members spouse Living Arrangements House Number of Floors (Floors) Two Floors Number of Stairs To Enter/Railing? 4 steps to enter with Railing on right assending. Pt has a downstairs that is 14 steps but she does not go down stairs. Home Environment High Toilet,Walk in Shower Home Equipment Front Wheel Walker,Straight Cane,Manual Wheelchair,Bedside Commode,Shower Seat without Backrest,Grab Bars Near Toilet ,Grab Bars In Shower Employment Status Retired Additional Social History Comment Pt lives in [place] with her . M2 OT-IP Current Condition Start: 04/28/24 14:25 Freq: Status: Active Protocol: Document 04/28/24 14:26 CGR (Rec: 04/28/24 14:37 CGR [id number]) Occupational Therapy Current Condition Current Condition Evaluation Date 04/28/24 Treatment Diagnosis 04/06 fall with pelvic fx, now Covid Diagnosis Onset Date 04/27/24 M3 OT- IP Subjective and Pain Start: 04/28/24 14:25 Freq: Status: Active Protocol: Document 04/28/24 14:26 CGR (Rec: 04/28/24 14:37 CGR [id number]) OT- Subjective Occupational Therapy Visit Type Type Initial Evaluation Visit Start Time 11:51 Visit Stop Time 12:13 OT Pain Assessment Pain When Pain Assessed At Rest Pain Present Pain Present Pain Reported Location back/hip Intensity 6 Scale Used Numeric (0 - 10) Management Techniques Modification of Treatment,Re- positioning M4 OT- IP ADL's Start: 04/28/24 14:25 Freq: Status: Active Protocol: Document 04/28/24 14:26 CGR (Rec: 04/28/24 14:37 CGR [id number]) OT [id number] General Evaluation Self-Feeding Ability Independent Comments OT Self-Feeding Comments lunch arrived at end of session OT ADL-Oral Care Comments Oral Care Comments pt declined, states she will do after lunch OT ADL-Dressing Comments OT Dressing Comments pt declined, states she will do after lunch OT ADL-Toileting Comments OT Toileting Comments not performed, pt states she just performed OT ADL-Bathing Comments OT Bathing Comments pt declines M5 OT- IP IADL's Start: 04/28/24 14:25 Freq: Status: Active Protocol: Document 04/28/24 14:26 CGR (Rec: 04/28/24 14:37 CGR [id number]) OT-Instrumental Activities of Daily Living Deficits IADL Deficits Identified No Deficits Home Safety Awareness Awareness of Need for Assistance at Home Good Awareness Ability to Problem Solve Emergency Able to Problem Solve Situations Medication Management Medication Management No Deficits Identified Money Management Money Management Caregiver Provides Assistance Meal Preparation Meal Preparation No Deficits Identified Nuclear Licensing Engineer Nuclear Licensing Engineer No Deficits Identified Driving Driving Comments 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 OT- IP Functional Cognition Start: 04/28/24 14:25 Freq: Status: Active Protocol: Document 04/28/24 14:26 CGR (Rec: 04/28/24 14:37 CGR [id number]) Cognitive Factors Limiting Selfcare Function Cognitive Ability Level of Alertness Alert Patient Orientation Name,Age,Birthday,Month,Date, Year,Day of Week,Place, Situation Attention Span Ability Capable of Focused Attention, Capable of Sustained Attention Ability to Follow Commands Able to Follow Multi-Step Commands M7 OT- IP Mobility and Balance Start: 04/28/24 14:25 Freq: Status: Active Protocol: Document 04/28/24 14:26 CGR (Rec: 04/28/24 14:37 CGR [id number]) OT- Bed Mobility Assessment Supine to Sit Supine to Sit Assist Standby Assistance Sit to Supine Sit to Supine Assist Standby Assistance Scooting Scooting to Edge of Bed Standby Assistance OT-Transfer Assessment Sit to and From Stand Sit to and from Stand Standby Assistance Transfers Transfer Ability Standby Assistance Technique Transfer Destination Bed,Chair Transfer Technique Stand Step Pivot Devices Transfer Assistive Devices Gait Belt,Front Wheeled Walker Comments Mobility Comments Pt agreeable to transfering over to the chair for lunch which was delivered at the end of this session. OT- Gait Assessment Gait Gait Assistance Required: Standby Assistance Assistive Devices Assistive Device Gait Belt,Front Wheeled Walker OT- Balance Assessment Sitting Balance and Reactions Static Sitting Balance Ability Normal Dynamic Sitting Balance Ability Normal M8 OT- IP Objective Assessments Start: 04/28/24 14:25 Freq: Status: Active Protocol: Document 04/28/24 14:26 CGR (Rec: 04/28/24 14:37 CGR [id number]) OT Gross Range of Motion Upper Extremity Range of Motion Assessment Within Functional Limits OT Strength Upper Extremity Strength Assessment Within Functional Limits Comments Strength Comments 4+/5 OT- Coordination Assessment Upper Extremity Finger to Nose Test Within Functional Limits Finger Tapping Test Within Functional Limits OT-Muscle Tone Assessment Muscle Tone WNL Yes OT Sensation Assessment Edema Edema Absent M9 OT- IP Assessment and Plan Start: 04/28/24 14:25 Freq: Status: Active Protocol: Document 04/28/24 14:26 CGR (Rec: 04/28/24 14:37 CGR [id number]) OT Summary Assessment and Plan Potential Rehabilitation Potential Excellent Analytic Complexity at Evaluation Low Summary OT Impairments Pain,Functional Mobility, Dressing,Toileting,Bathing, Toilet Transfers,Shower Transfers,Activity Tolerance Progress Towards Goals Progressing Toward Goals,Slow Progress due to Activity Tolerance Assessment Summary Pt presents as a low complexity evaluation s/p admit for covid with recent hx of fall with pelvic fx. Pt is moving around with SBA but has low energy per pt. Pt would benefit from 1-2 more sessions to discuss energy conservation. Recommend d/c home with family support. Goals Grooming Goal Independent Dressing Goal Independent Toileting Goal Independent Bathing Goal Independent Toilet Transfer Goal Independent Shower Transfer Goal Independent Days to Meet Goals 2 Frequency of Treatment Other frequency 5x a week Treatment Plan OT Treatment Plan ADL Training,Functional Mobility,Patient/Family Education,Discharge Planning Other Treatment Recommendations and Next energy conservation Treatment Focus Discharge Recommendations OT Discharge Recommendations Home with Assistance Transportation Needs at Discharge Private Vehicle
[2024-04-28 14:00] VITALS: BP 142/66; PULSE 67; RESP 16; TEMP 36.3; O2SAT 92
[2024-04-28 14:26] LABS: BUN Creatinine Ratio 17.3 (6-22); Blood Urea Nitrogen 13 mg/dL (7-17); Calcium 9.4 mg/dL (8.4-10.2); Carbon Dioxide 19 mmol/L (22-32); Chloride 95 mmol/L (98-107); Estimated Glomerular Filt Rate > 60 mL/min (>60); Glucose 148 mg/dL (80-110); HEMOLYSIS < 15 (0-50); Potassium 4.1 mmol/L (3.4-5.1); Sodium 126 mmol/L (137-145)
--- NOTE | 2024-04-28 14:34 | CM.DANOTE ---
Initial DCP Assessment Visit Note Reviewed EMR and team rounds for status updates. Spoke with pt's outside the room to introduce self and role, did not meet with pt in the room due to her covid+ status and active symptoms. Pt lives modified-independently at baseline with her in [place]. Her will transport her back home once she's medically stable for d/c, likely not for a few days. PT/OT evals and recommendations are pending. Payor: Medicare PCP: Dr. Ascencio Pt is a 78 year-old F with a PNH of hypothyroidism, hypertension, and a recent pelvic fracture. She had been started on several new medications at that time following the fracture. She presented to the ED yesterday afternoon with c/o nausea, abdominal pain, vomiting, cough, weakness/fatigue, and overall malaise. Chest x-ray was negative. Labs were positive for hyponatremia and covid. Pt was started on IV fluids and admitted to the floor for jenniffer. tx and evaluation. DCP will continue to follow for final d/c needs and recommendations. Discharge Planning/Care Management Advanced directive, confirm from FAMILY Start: 04/27/24 17:39 Freq: Q24H Status: Active Protocol: Document 04/27/24 17:39 J (Rec: 04/27/24 17:45 J [id number]) Advance Directive, confirm on record Time 17:45 Person contacted Pt's son Copy received No CM Discharge Assessment Start: 04/28/24 14:27 Freq: Status: Active Protocol: Document 04/28/24 14:29 DPL (Rec: 04/28/24 14:34 DPL [id number]) Discharge Planning Assessment Assigned Deck Supervisor MARISSA Al Advance Directives? No Advance Directives on File No History Provided By Family Member,Medical Record Has Patient been admitted in last 30 No days? Prior Living Arrangements House Household Members spouse Type of transporation used prior to Drives own vehicle admit Independent with ADL's Yes Is patient alert and oriented? Yes Caregiver for Another No Comment N/A Comment No anticipated home d/c needs identified at this time. Barriers to Discharge No Discharge Plan Home Transportation Arrangement Spouse Referrals Initiated None needed Whiteboard Updated in Patient Room with No name and ext. # of Deck Supervisor Comment Pt is covid+ Review Status In Process Please Provide Date Initial DC 04/28/24 Assessment Was Performed
--- NOTE | 2024-04-28 15:45 | PT.IIE ---
Current Diagnoses COVID-19 (04/27/24) Surgical History (Last Reviewed 12/18/21 @ 16:00 by Gabbi Knapp MA) Anesthesia Broken leg (~2010) Compartment syndrome (~2011) History of back surgery (~2000) Status post surgical manipulation of knee joint (~2011) Medical History (Last Updated 06/13/22 @ 09:28 by Lance Ascencio MD) Acquired hypothyroidism Cataracts, bilateral (~1999) Chicken pox Essential hypertension (~2008) Fractures (~2018) GERD (gastroesophageal reflux disease) (~2006) Hearing loss Hemorrhoids, internal History of adenomatous polyp of colon Measles Mixed hyperlipidemia Mumps Osteoporosis (~2018) Pulmonary embolism (~2010) Tinnitus (~2018) Type 2 diabetes mellitus Physical Therapy Inpatient Evaluation/Re-Eval M1 PT/OT-IP Prior Functional Status Start: 04/28/24 14:25 Freq: NEEDED Status: Active Protocol: Document 04/28/24 15:45 DLM (Rec: 04/28/24 17:21 DLM [id number]) Medical Review Prior Functional Status Medical History Reviewed Yes Diet/Fluid Consistency Regular Communication Pt is an effective verbal communicator but is [place]. Mobility and Gait Pt was Independent in all mobility without AD prior to recent fall April 06, 2024 (fall on stairs suffering pelvic fx) Activities of Daily Living and IADL's Pt was IND in all ADLs and IADLS prior to recent fall in March. Social History Household Members spouse Living Arrangements House Number of Floors (Floors) Two Floors Number of Stairs To Enter/Railing? able to stay on main level of house with bedroom and bath, 4 steps to enter with rail Home Environment High Toilet,Walk in Shower Home Equipment Front Wheel Walker,Straight Cane,Manual Wheelchair,Bedside Commode,Shower Seat without Backrest,Grab Bars Near Toilet ,Grab Bars In Shower Employment Status Retired Additional Social History Comment Pt lives in [place] with her . M2 PT-IP Current Condition Start: 04/28/24 17:06 Freq: NEEDED Status: Active Protocol: Document 04/28/24 15:45 DLM (Rec: 04/28/24 17:21 DLM [id number]) Physical Therapy Current Condition Current Condition Evaluation Date 04/28/24 Treatment Diagnosis COVID- 19 (+) and low sodium, impaired gait Onset Date 04/27/24 M3 PT-IP Subjective Start: 04/28/24 17:06 Freq: NEEDED Status: Active Protocol: Document 04/28/24 15:45 DLM (Rec: 04/28/24 17:21 DLM [id number]) Subjective Physical Therapy Visit Type Type Initial Evaluation Visit Start Time 15:00 Visit Stop Time 15:45 Notes 45 minutes Number of [employer] Visits 0 Physical Therapy Visit Comments Patient Comments She thinks she is progressing well, feels better. She describes having good support at home. She plans to have the fire department help her into the house; has used this service in the past. Patient Goals She wants to go home Therapy Pain Assessment Pain When Pain Assessed During Mobility Pain Present Pain Present Pain Reported Location back/hip Intensity 4 Scale Used Numeric (0 - 10) Description Aching,Radiating,With Movement Pain Behaviors Guarding Pain Management Techniques Modification of Treatment,Re- positioning M4 PT-IP Mobility and Gait Start: 04/28/24 17:06 Freq: NEEDED Status: Active Protocol: Document 04/28/24 15:45 DLM (Rec: 04/28/24 17:21 DL [id number]) PT-Bed Mobility Assessment Rolling Level of Assist Independent Supine to Sit Supine to Sit Independent Sit to Supine Sit to Supine Independent Scooting Scooting to Edge of Bed Independent Scooting Up and Down in Bed Independent PT-Transfer Assessment Sit to and From Stand Sit to and from Stand Independent,Use of Upper Extremities Equipment Transfer Assistive Device Gait Belt,Front Wheeled Walker Transfers Transfer Destination Bed Transfer Technique Stand Step Pivot Transfer Ability Level of Assist Standby Assistance,Use of Upper Extremities Comments Mobility Comments assisted pt with lines, cleared her path, pace of mobility is slow but functional, good use of UE support to assist movements, pt using UE's to assist LE's into bed as needed Gait Assessment Gait Gait Assistance Required: Standby Assistance Distance (Feet) 20 Assistive Devices Assistive Device Gait Belt,Front Wheeled Walker Gait Deviations General Gait Pattern Decreased Stride Length Factors Limiting Gait Function Factors Limiting Gait Function Decreased Activity Tolerance, Pain Comments Gait Comments pt declined to ambulate further today due to concerns about her hemorrhoids. She has also been up to the bathroom with nursing earlier today Stair Climbing Assessment Comments Stair Climbing Comments she declined the need for stair training, she can verbalized using a step-to pattern. She reports she calls the fire dept to help her get back into the house. PT-Balance Assessment Sitting Balance and Reactions Static Sitting Balance Ability Normal Dynamic Sitting Balance Ability Normal Standing Balance and Reactions Static Standing Balance Ability Good Dynamic Standing Balance Ability Good Device Used FWW M5 PT-IP Objective Assessments Start: 04/28/24 17:06 Freq: NEEDED Status: Active Protocol: Document 04/28/24 15:45 DLM (Rec: 04/28/24 17:21 DL [id number]) Orientation Orientation/Cognition Level of Alertness Alert Orientation Name,Age,Birthday,Month,Date, Year,Day of Week,Place, Situation Language Function Ability No Deficits Noted Safety Awareness Understands Safety Issues Memory Description No Deficits Noted Gross Range of Motion Upper Extremity ROM Assessment Within Functional Limits Lower Extremity ROM Assessment Left Impaired Impairments pain with hip abduction motions, pain described in groin area Strength Upper Extremity Strength Assessment Within Functional Limits Lower Extremity Strength Assessment Left Impaired Hip hip flex 4-/5 Knee 4/5 Ankle DF 5/5 Comments Strength Comments hx left LE fx with long recovery Coordination Assessment Gross Coordination Gross Coordination WNL Sensation Assessment Comments Sensation Comments no changes reported this admit Muscle Tone Muscle Tone WNL Yes M6 PT-IP Treatment Start: 04/28/24 17:06 Freq: NEEDED Status: Active Protocol: Document 04/28/24 15:45 DLM (Rec: 04/28/24 17:21 DL [id number]) Physical Therapy Treatment Exercises Exercises Ankle Pumps Education Education Provided Safety M7 PT-IP Assessment and Plan Start: 04/28/24 17:06 Freq: NEEDED Status: Active Protocol: Document 04/28/24 15:45 DLM (Rec: 04/28/24 17:21 DL [id number]) PT Summary Assessment and Plan Potential Rehabilitation Potential Good Status of Condition at Evaluation Evolving Summary Impairments Pain,ROM,Strength,Balance,Gait ,Activity Tolerance Progress Towards Goals Safe For Discharge Assessment Summary She appears to be at her new baseline since her pelvic fracture on 04/06/24. She demonstrates safe use of the FWW for gait. She declined to ambulate very far this visit due to hemorrhoid issues, not left LE pain. She appears safe to discharge home when she is medically stable. Will discharge Physical Therapy at this time. Will defer further mobility to nursing supervision during this admission. Frequency of Treatment Frequency Of Treatment Discharge Precautions Other Precautions fall risk, needs help with lines and keeping path clear COVID-19 precautions Weight Bearing Status Weight Bearing Status Weight Bear as Tolerated Allowed Weight Bearing Amount (enter % pelvic fx 04/06/24 or #) (%) Recommendations To Nursing Amount of Assist Needed Standby Assistance Discharge Recommendations PT Discharge Recommendations Home with Assistance,Home Health Other Discharge Recommendations has supportive spouse at home Transportation Needs at Discharge Private Vehicle
[2024-04-28] MEDS: SODIUM CHLORIDE 0.9% 1,000 ML 100 ML IV (15:58)
[2024-04-28 20:00] VITALS: BP 153/68; PULSE 70; RESP 19; TEMP 36.4; O2SAT 94
[2024-04-28] MEDS: SENNOSIDES 8.6 MG TABLET 17.2 MG PO (20:52)
[2024-04-28] MEDS: atenoloL 50 MG TABLET 100 MG PO (21:45)
[2024-04-29 02:43] VITALS: BP 154/72; PULSE 88; RESP 18; TEMP 36.4; O2SAT 94
[2024-04-29] MEDS: ACETAMINOPHEN 325 MG TABLET 650 MG PO ×3 (04:33→20:07)
[2024-04-29] MEDS: SODIUM CHLORIDE 0.9% 1,000 ML 100 ML IV ×2 (04:36→15:28)
[2024-04-29] MEDS: LEVOTHYROXINE 75 MCG TABLET PO (06:24)
[2024-04-29] MEDS: PANTOPRAZOLE DR 20 MG TABLET 40 MG PO (06:25)
[2024-04-29 06:52] LABS: BUN Creatinine Ratio 15.8 (6-22); Blood Urea Nitrogen 9 mg/dL (7-17); Carbon Dioxide 18 mmol/L (22-32); Chloride 96 mmol/L (98-107); Estimated Glomerular Filt Rate > 60 mL/min (>60); Glucose 127 mg/dL (80-110); HEMOLYSIS 27 (0-50); Potassium 3.6 mmol/L (3.4-5.1); Sodium 125 mmol/L (137-145)
[2024-04-29 08:00] VITALS: BP 131/72; PULSE 67; RESP 18; TEMP 37.1; O2SAT 95
[2024-04-29] MEDS: ENOXAPARIN 40 MG/0.4 ML SYRINGE SUBCUT (08:25)
[2024-04-29] MEDS: CHOLECALCIFEROL (VITAMIN D3) 1,000 UNIT TABLET 1000 UNIT PO (08:25)
[2024-04-29 08:26] VITALS: BP 131/72; PULSE 67
[2024-04-29] MEDS: AMLODIPINE 5 MG TABLET 10 MG PO (08:26)
[2024-04-29] MEDS: ATORVASTATIN 20 MG TABLET 40 MG PO (08:26)
[2024-04-29] MEDS: LOSARTAN 50 MG TABLET 100 MG PO (08:26)
[2024-04-29 12:00] VITALS: BP 151/103; PULSE 64; RESP 18; TEMP 36.6; O2SAT 93
--- NOTE | 2024-04-29 12:58 | CM.DPC ---
Addendum entered by MARISSA Hannah 04/29/24 14:16: Home Health resumption orders placed, sent to [facility] . [facility] Original Note: DCP Continued: Reviewed EMR and team rounds for pt?s medical status. Per rounds, pt might discharge tomorrow due to current sodium levels. DCP entered room and introduced self and role, present in the room is pt's . DCP confirmed that pt has PT services with [facility] and they would like to resume after discharge. Pt requested to speak with Dr. Ascencio when available regarding discharge plans. DCP confirmed with [facility] that pt is in their service, [facility] requesting resumption orders upon discharge. Plan: Anticipating discharge tomorrow, 04/30, or when medically cleared. Pt to follow up with [facility] for PT. CM Team will continue to follow for coordination of discharge plans. [facility]
--- NOTE | 2024-04-29 13:58 | OT.IP.TRT ---
Current Diagnoses COVID-19 (04/27/24) Occupational Therapy Treatment Note M2 OT-IP Current Condition Start: 04/28/24 14:25 Freq: Status: Active Protocol: Document 04/28/24 14:26 CGR (Rec: 04/28/24 14:37 CGR [id number]) Occupational Therapy Current Condition Current Condition Evaluation Date 04/28/24 Treatment Diagnosis 04/06 fall with pelvic fx, now Covid Diagnosis Onset Date 04/27/24 M3 OT- IP Subjective and Pain Start: 04/28/24 14:25 Freq: Status: Active Protocol: Document 04/29/24 14:02 CCC (Rec: 04/29/24 14:05 [facility] [id number]) OT- Subjective Occupational Therapy Visit Type Visit Start Time 13:50 Visit Stop Time 13:58 Occupational Therapy Visit Comments Patient Comments Pt agreed to go over energy conservation strategies with her. Patient/Caregiver Goals To go home. OT Pain Assessment Pain When Pain Assessed At Rest Pain Present Pain Present Pain Reported M4 OT- IP ADL's Start: 04/28/24 14:25 Freq: Status: Active Protocol: Document 04/28/24 14:26 CGR (Rec: 04/28/24 14:37 CGR [id number]) OT ZHI-Pmri-Tizgchi General Evaluation Self-Feeding Ability Independent Comments OT Self-Feeding Comments lunch arrived at end of session OT ADL-Oral Care Comments Oral Care Comments pt declined, states she will do after lunch OT ADL-Dressing Comments OT Dressing Comments pt declined, states she will do after lunch OT ADL-Toileting Comments OT Toileting Comments not performed, pt states she just performed OT ADL-Bathing Comments OT Bathing Comments pt declines M5 OT- IP IADL's Start: 04/28/24 14:25 Freq: Status: Active Protocol: Document 04/28/24 14:26 CGR (Rec: 04/28/24 14:37 CGR [id number]) OT-Instrumental Activities of Daily Living Deficits IADL Deficits Identified No Deficits Home Safety Awareness Awareness of Need for Assistance at Home Good Awareness Ability to Problem Solve Emergency Able to Problem Solve Situations Medication Management Medication Management No Deficits Identified Money Management Money Management Caregiver Provides Assistance Meal Preparation Meal Preparation No Deficits Identified 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 Manager 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 Service District Manager Postal Service No Deficits Identified Driving Driving Comments 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 OT- IP Functional Cognition Start: 04/28/24 14:25 Freq: Status: Active Protocol: Document 04/29/24 14:02 CCC (Rec: 04/29/24 14:05 CCC [id number]) Cognitive Factors Limiting Selfcare Function Cognitive Ability Level of Alertness Alert Patient Orientation Name,Age,Birthday,Month,Date, Year,Day of Week,Place, Situation Attention Span Ability Capable of Focused Attention, Capable of Sustained Attention Ability to Follow Commands Able to Follow Multi-Step Commands Cognitive Comments Cognitive Assessment Comments Able to go over enrgy conservation needs with pt and pt able to provide good understanding and input to her needs. M7 OT- IP Mobility and Balance Start: 04/28/24 14:25 Freq: Status: Active Protocol: Document 04/28/24 14:26 CGR (Rec: 04/28/24 14:37 CGR [id number]) OT- Bed Mobility Assessment Supine to Sit Supine to Sit Assist Standby Assistance Sit to Supine Sit to Supine Assist Standby Assistance Scooting Scooting to Edge of Bed Standby Assistance OT-Transfer Assessment Sit to and From Stand Sit to and from Stand Standby Assistance Transfers Transfer Ability Standby Assistance Technique Transfer Destination Bed,Chair Transfer Technique Stand Step Pivot Devices Transfer Assistive Devices Gait Belt,Front Wheeled Walker Comments Mobility Comments Pt agreeable to transferring over to the chair for lunch which was delivered at the end of this session. OT- Gait Assessment Gait Gait Assistance Required: Standby Assistance Assistive Devices Assistive Device Gait Belt,Front Wheeled Walker OT- Balance Assessment Sitting Balance and Reactions Static Sitting Balance Ability Normal Dynamic Sitting Balance Ability Normal M8 OT- IP Objective Assessments Start: 04/28/24 14:25 Freq: Status: Active Protocol: Document 04/28/24 14:26 CGR (Rec: 04/28/24 14:37 CGR [id number]) OT Gross Range of Motion Upper Extremity Range of Motion Assessment Within Functional Limits OT Strength Upper Extremity Strength Assessment Within Functional Limits Comments Strength Comments 4+/5 OT- Coordination Assessment Upper Extremity Finger to Nose Test Within Functional Limits Finger Tapping Test Within Functional Limits OT-Muscle Tone Assessment Muscle Tone WNL Yes OT Sensation Assessment Edema Edema Absent M9 OT- IP Assessment and Plan Start: 04/28/24 14:25 Freq: Status: Active Protocol: Document 04/29/24 14:02 [facility] (Rec: 04/29/24 14:05 [facility] [id number]) OT Summary Assessment and Plan Potential Rehabilitation Potential Excellent Analytic Complexity at Evaluation Low Summary Progress Towards Goals Progressing Toward Goals Assessment Summary Pt looking to go home when medically stable and will have assist at home. Discharge from OT services at this time. Frequency of Treatment Frequency Of Treatment Discharge Discharge Recommendations OT Discharge Recommendations Home with Assistance Transportation Needs at Discharge Private Vehicle
--- NOTE | 2024-04-29 16:31 | PC.NURSE ---
Pt A/O, denies discomfort. SBA to BR w/o incidence. NS infusing @ 100cc/hr as per orders., w/o incidence. Call light w/in reach,pt calls appropriately for needs Continue w/plan of care.
[2024-04-29 18:00] VITALS: RESP 18
--- NOTE | 2024-04-29 18:32 | PM.PN.1 ---
Subjective Subjective Date Patient Seen: 04/29/24 Time Patient Seen: 12:40 Interval history: Resting comfortably with at bedside. Anxious to go home. Sodium slightly lower overnight compared to prior. Exam Vital Signs (past 8 hours): - 04/29/24 12:00 04/29/24 18:00 Temperature 97.9 F Pulse Rate 64 Respiratory Rate 18 185 H Blood Pressure 151/103 H Pulse Oximetry 93 Oxygen Flow Rate 0 Oxygen Delivery Method Room Air Oxygen Flow Rate 0 Objective Labs 04/27/24 11:15 04/29/24 05:50 Labs: Laboratory Results - last 24 hr 04/29/24 05:50 Sodium 125 L Potassium 3.6 Chloride 96 L Carbon Dioxide 18 L BUN 9 Creatinine 0.57 Estimated GFR > 60 BUN/Creatinine Ratio 15.8 Glucose 127 H Calcium 9.0 PFSH Medical History (Updated 04/29/24 @ 21:25 by Hans Espinosa MD) History of adenomatous polyp of colon Hemorrhoids, internal Fractures (~2018) Mumps Measles Chicken pox Tinnitus (~2018) Hearing loss Cataracts, bilateral (~1999) GERD (gastroesophageal reflux disease) (~2006) Pulmonary embolism (~2010) Osteoporosis (~2018) Type 2 diabetes mellitus Essential hypertension (~2008) Mixed hyperlipidemia Acquired hypothyroidism Surgical History Anesthesia Status post surgical manipulation of knee joint (~2011) Compartment syndrome (~2011) Broken leg (~2010) History of back surgery (~2000) Family History Father Stroke Mother History of heart disease Social History marital status: household members: spouse Smoking Status: Never smoker substance use type: does not use Assessment & Plan Assessment and plan (1) Acute hyponatremia: Status: Acute (2) SARS-CoV-2 positive: Status: Acute (3) Type 2 diabetes mellitus: Qualifiers: 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 use: without assisted use Diabetes mellitus complication status: without complication Qualified Code(s): E11.9 - Type 2 diabetes mellitus without complications Status: Chronic (4) Pelvic fracture: Qualifiers: Encounter type: sequela Pelvic bone location: unspecified part of pelvis Fracture alignment: nondisplaced Fracture type: closed Qualified Code(s): S32.9XXS - Fracture of unspecified parts of lumbosacral spine and pelvis, sequela Status: Acute (5) Constipation: Qualifiers: Constipation type: slow transit constipation Qualified Code(s): K59.01 - Slow transit constipation Status: Acute (6) Essential hypertension: Status: Chronic Assessment & Plan narrative: 1. Hyponatremia - Overall improved with IV fluids but slightly lower than yesterday at 125. Continue IV fluids and monitor. 2. COVID - No respiratory distress and symptoms started > 1 week ago. No indication for treatment at this time. 3. Diabetes - Adequately controlled. Continue carb consistent diet with senitive SSI. 4. Hypertension - Intermittently hypertensive but not dangerously so. Continue home amlodipine, losartan. 5. Pelvic fracture - Continue with pain meds and PT/OT. 6. Constipation - Continue aggressive bowel regimen. Time-Based Coding :: 20 minutes spent with patient and on the chart (including review of chart, obtaining history, exam, reviewing outside data, placing orders, documenting exam and treatment plan, and counseling patient) on 04/29/2024. PROFEE Charge codes Subsequent inpatient/observation care: [id number]
[2024-04-29 20:00] VITALS: BP 172/77; PULSE 66; RESP 12; TEMP 36.6; O2SAT 93
[2024-04-29] MEDS: SENNOSIDES 8.6 MG TABLET 17.2 MG PO (20:06)
[2024-04-29] MEDS: atenoloL 50 MG TABLET 100 MG PO (20:08)
[2024-04-30] MEDS: SODIUM CHLORIDE 0.9% 1,000 ML 100 ML IV (01:31)
[2024-04-30 02:00] VITALS: BP 160/72; PULSE 62; RESP 13; TEMP 36.7; O2SAT 94
[2024-04-30] MEDS: ACETAMINOPHEN 325 MG TABLET 650 MG PO ×2 (03:05→08:38)
[2024-04-30] MEDS: guaiFENesin Solution 100 MG/5 ML UDC PO (03:05)
[2024-04-30 04:42] LABS: BUN Creatinine Ratio 16.9 (6-22); Blood Urea Nitrogen 10 mg/dL (7-17); Calcium 9.1 mg/dL (8.4-10.2); Carbon Dioxide 18 mmol/L (22-32); Chloride 98 mmol/L (98-107); Estimated Glomerular Filt Rate > 60 mL/min (>60); Glucose 128 mg/dL (80-110); HEMOLYSIS 25 (0-50); Potassium 3.9 mmol/L (3.4-5.1); Sodium 126 mmol/L (137-145)
[2024-04-30] MEDS: PANTOPRAZOLE DR 20 MG TABLET 40 MG PO (05:58)
[2024-04-30] MEDS: LEVOTHYROXINE 75 MCG TABLET PO (05:59)
[2024-04-30 08:00] VITALS: BP 160/75; PULSE 61; RESP 18; TEMP 36.5; O2SAT 94
[2024-04-30] MEDS: BENZONATATE 100 MG CAPSULE PO (08:20)
[2024-04-30] MEDS: CHOLECALCIFEROL (VITAMIN D3) 1,000 UNIT TABLET 1000 UNIT PO (08:21)
[2024-04-30 08:22] VITALS: BP 168/75; PULSE 68
[2024-04-30] MEDS: ONDANSETRON 4 MG ODT PO (08:22)
[2024-04-30] MEDS: AMLODIPINE 5 MG TABLET 10 MG PO (08:22)
[2024-04-30] MEDS: ATORVASTATIN 20 MG TABLET 40 MG PO (08:22)
[2024-04-30] MEDS: HYDROCODONE/ACET 5/325 TABLET 1 TAB PO (08:22)
[2024-04-30] MEDS: LOSARTAN 50 MG TABLET 100 MG PO (08:22)
[2024-04-30 08:24] VITALS: BP 168/75; PULSE 68; RESP 19; TEMP 36.4; O2SAT 94
[2024-04-30] MEDS: ENOXAPARIN 40 MG/0.4 ML SYRINGE SUBCUT (08:28)
--- NOTE | 2024-04-30 08:33 | P.DS_ITS ---
History of Present Illness History of Present Illness Chief complaint: Nausea/chills/chest pressure-recent pelvic fx Discharge Providers Provider Date of admission: 04/27/24 14:16 Discharge Date: 04/30/24 Primary care physician: Lance Ascencio MD Consults: 04/27/24 17:17 Consult to Occupational Therapy Evaluate & Treat Comment: Physician Instructions: Evaluate and treat Consult to Physical Therapy Evaluate & Treat Comment: Physician Instructions: Evaluate and Treat 04/29/24 13:02 Consult to Home Health Routine Comment: PT (Resumption) Reason For Exam: Hyponatremia, HTN, Osteoporosis Discharge provider: Hans De MD Summary Hospital Course Discharge Diagnosis: Hyponatremia- COVID Diabetes Hypertension Pelvic fracture Constipation Hospital Course: Patient admitted to the hospital with hyponatremia. Recent pelvis fracture on top of COVID. During hospital stay her fluids electrolytes were monitored as well as blood pressure. Her blood sugars were well controlled. As well as blood pressure. She had working with physical therapy due to her pelvis fracture and provided pain management. She was on precautions because of COVID. Her hyponatremia was treated with normal saline at the time of discharge her sodium was 126. Exam Vital Signs (past 8 hours): - 04/30/24 02:00 04/30/24 08:22 04/30/24 08:24 Temperature 98.1 F 97.6 F Pulse Rate 62 68 68 Respiratory Rate 13 19 Blood Pressure 160/72 H 168/75 H 168/75 H Pulse Oximetry 94 94 Oxygen Flow Rate 0 0 Oxygen Delivery Method Room Air Oxygen Flow Rate 0 Objective Labs 04/27/24 11:15 04/30/24 03:52 Labs: Laboratory Results - last 24 hr 04/30/24 03:52 Sodium 126 L Potassium 3.9 Chloride 98 Carbon Dioxide 18 L BUN 10 Creatinine 0.59 Estimated GFR > 60 BUN/Creatinine Ratio 16.9 Glucose 128 H Calcium 9.1 [facility] Medical History (Updated 04/29/24 @ 21:25 by Hans Espinosa MD) History of adenomatous polyp of colon Hemorrhoids, internal Fractures (~2018) Mumps Measles Chicken pox Tinnitus (~2018) Hearing loss Cataracts, bilateral (~1999) GERD (gastroesophageal reflux disease) (~2006) Pulmonary embolism (~2010) Osteoporosis (~2018) Type 2 diabetes mellitus Essential hypertension (~2008) Mixed hyperlipidemia Acquired hypothyroidism Surgical History Anesthesia Status post surgical manipulation of knee joint (~2011) Compartment syndrome (~2011) Broken leg (~2010) History of back surgery (~2000) Family History Father Stroke Mother History of heart disease Social History marital status: household members: spouse Smoking Status: Never smoker substance use type: does not use Discharge Plan Discharge Plan Patient Disposition: Home Health Service Discharge orders & Medications Prescriptions: New polyethylene glycol 3350 [Miralax] 17 gram/dose powder 17 g PO DAILY Qty: 510 0RF Continued losartan 100 mg tablet 100 mg PO QAM Qty: 90 2RF (DME) Disabled Parking See Rx Instructions .ROUTE .MEDSUPPLY Qty: 1 0RF Rx Instructions: Patient qualifies for disabled parking as per the attached form. atorvastatin 40 mg tablet 40 mg PO DAILY Qty: 90 3RF omeprazole 20 mg capsule,delayed release(DR/EC) 20 mg PO DAILY Qty: 90 3RF hydrocodone-acetaminophen 5-325 mg tablet 1 tab PO Q6H PRN (Reason: pain) Qty: 60 0RF levothyroxine 75 mcg tablet 75 mcg PO DAILY Qty: 90 0RF amlodipine 10 mg tablet 10 mg PO DAILY Qty: 90 3RF atenolol 50 mg Tablet 100 mg PO BEDTIME magnesium oxide 400 mg (241.3 mg magnesium) tablet 400 mg PO DAILY acetaminophen 325 mg Tablet 325 mg PO PRN MDD 4000 mg PRN (Reason: pain) cholecalciferol (vitamin D3) [Vitamin D3] 25 mcg (1,000 unit) capsule 1,000 unit PO DAILY Follow up/Referrals: Lance Ascencio MD [Primary Care Provider] - 2 Weeks Diet/Activity/Treatments Diet: Diet as Tolerated Visit Report/Discharge Packet Stand Alone Forms: Patient Portal/API, Stroke Signs & Symptoms Discharge Data Primary Care Provider: Lance Ascencio
--- NOTE | 2024-04-30 09:31 | CM.DPC ---
DCP Discharge Home Per MD, pt is medically stable to d/c home with spouse today and discharge order placed. Per PT/OT, recommending home with spouse assist and HH. Pt has been open with [facility] and SW faxed discharge summary and Resumption orders to [facility] to review. SHYANN spoke briefly outside the room with spouse and he was wanting to confirm with Dr. De that his is ready for discharge and he is available for transport once he talks to the MD. MARISSA Quintana
== END 2024-04-30 11:45 | disposition home health service (06) | DRG 640 ==
LOC: ED 14:11 → AC 14:17
PROVIDERS: Admitting Provider Family Medicine; Emergency Provider Student in an Organized Health Care Education/Training Program; PCP Internal Medicine; Referring Provider Student in an Organized Health Care Education/Training Program; Visit Provider Internal Medicine
DX: E87.1 Hypo-osmolality and hyponatremia (principal); U07.1 COVID-19; S32.9XXD Fracture of unspecified parts of lumbosacral spine and pelvis, subsequent encounter for fracture with routine healing; I10 Essential (primary) hypertension; E11.9 Type 2 diabetes mellitus without complications; E78.5 Hyperlipidemia, unspecified; E03.9 Hypothyroidism, unspecified; R07.9 Chest pain, unspecified; T40.605A Adverse effect of unspecified narcotics, initial encounter; K59.01 Slow transit constipation; K21.9 Gastro-esophageal reflux disease without esophagitis; W10.9XXD Fall (on) (from) unspecified stairs and steps, subsequent encounter
CPT/HCPCS: 0241U; 36415; 70450; 71045; 74177; 80048; 80053; 82140; 82550; 82962; 83690; 83735; 83880; 84484; 85025; 85610; 85730; 93005; 96361; 96374; 96375; 97161; 97165; 97535; 99284; 99285; J1650; J2405; J2470; Q9967

== ENCOUNTER → 2024-05-13 11:17 | Outpatient (CLI) | payer MEDICARE, OTHER, SELFPAY ==
[2024-04-27 17:14] VITALS: BMI 25.8
[2024-05-13 12:42] LABS: Hemoglobin A1C% w Est Avg Glu 6.1 % (4.0-6.0)
[2024-05-13 12:55] LABS: Alanine Aminotransferase 16 IU/L (<35); Albumin 4.6 g/dL (3.5-5.0); Albumin Globulin Ratio 1.4 (1.0-2.8); Alkaline Phosphatase 210 U/L (38-126); Aspartate Aminotransferase 27 IU/L (14-36); BUN Creatinine Ratio 13.8 (6-22); Bilirubin Total 0.8 mg/dL (0.2-1.3); Blood Urea Nitrogen 13 mg/dL (7-17); Calcium 9.9 mg/dL (8.4-10.2); Carbon Dioxide 20 mmol/L (22-32); Chloride 91 mmol/L (98-107); Cholesterol 116 mg/dL (140-199); Estimated Glomerular Filt Rate > 60 mL/min (>60); Globulin 3.2 g/dL (1.7-4.1); Glucose 105 mg/dL (80-110); HDL Cholesterol 44 mg/dL (40-60); HEMOLYSIS < 15 (0-50); LDL Cholesterol Calculated 44 mg/dL (<100); Magnesium 1.6 mg/dL (1.6-2.3); Potassium 4.7 mmol/L (3.4-5.1); Sodium 125 mmol/L (137-145); Total Protein 7.8 g/dL (6.3-8.2); Triglycerides 139 mg/dL (35-150)
== END ==
PROVIDERS: PCP Internal Medicine; Referring Provider Internal Medicine; Visit Provider Internal Medicine
DX: E11.9 Type 2 diabetes mellitus without complications (principal); E87.1 Hypo-osmolality and hyponatremia; E78.2 Mixed hyperlipidemia; I10 Essential (primary) hypertension
CPT/HCPCS: 36415; 80053; 80061; 83036; 83735

== ENCOUNTER 2024-05-13 18:11 | Emergency (ER) | payer MEDICARE, OTHER, SELFPAY ==
[2024-04-27 17:14] VITALS: BMI 25.8
[2024-05-13] VITALS (33 sets, daily range): BP systolic 136–178; BP diastolic 68–143; PULSE 83–102; RESP 11–25; TEMP 36.8; O2SAT 92–97; BMI 26.4
--- NOTE | 2024-05-13 18:11 | DI.CT.S_ITS ---
PROCEDURE: CT ANGIO HEAD AND NECK INDICATIONS: stroke TECHNIQUE: After the administration of intravenous contrast, 1 mm thick sections acquired from the aortic arch through the [place] of [place]. 3-dimensional otsxzeq-wjjvaufhi-ohlctqibph (MIP) and/or volume rendering reformats were acquired of the central intracranial vasculature and neck separately. For radiation dose reduction, the following was used: automated exposure control, adjustment of mA and/or kV according to patient size. COMPARISON: Located Within [facility], CT, CT HEAD/BRAIN WO CON, 04/27/2024, 12:14. Located Within [facility], CT, CT STROKE, 05/13/2024, 18:18. Located Within [facility], CT, CT ANGIO HEAD AND NECK, 09/09/2023, 11:01. FINDINGS: Image quality: Limited by bolus timing, with venous contamination. BRAIN: CSF spaces: Ventricles are normal in size and shape. Basal cisterns are patent. No extra-axial fluid collections. Brain: No significant abnormality of the brain can be seen. Skull and face: Calvarium and facial bones appear intact, without suspicious lesions. Orbits appear normal. Sinuses: Sinuses and mastoids are clear. HEAD CT ANGIOGRAPHY: Anterior circulation: Intracranial internal carotid arteries are normal in size and flow. There is a diminutive right A1 segment, with a corresponding robust left A1 segment. This is considered to be a normal developmental variant of the [place] of [place], of typically no clinical consequence. The flow within the paired anterior cerebral arteries is otherwise normal and symmetric. The flow within the middle cerebral arteries is normal and symmetric. The anterior communicating artery is seen. No aneurysms are seen. Posterior circulation: Focal calcification can be seen involving the V4 segments, with 50% narrowing on each side. There is a normal appearing basilar artery. Flow within the posterior cerebral arteries is normal and symmetric. No aneurysms are seen. NECK CT ANGIOGRAPHY: Carotid system: The great vessels demonstrate a conventional anatomy as they arise from the aortic arch. The origins of the common carotid arteries appear patent. The common carotid arteries demonstrate normal caliber and courses. The bifurcation regions demonstrate atherosclerotic irregularity and calcification, left worse than. However, no hemodynamically significant stenosis can be seen. The more distal internal carotid arteries demonstrate normal course and caliber. Posterior circulation: The origins of the vertebral arteries both appear widely patent. The more superior extracranial portions of both vertebral arteries also demonstrate normal courses and calibers. The left vertebral artery is dominant to the right. Soft tissues: Visualized neck soft tissues demonstrate no suspicious abnormalities. Bones: No suspicious bony lesions. Visualized cervical spine appears normally aligned. Moderate cervical spine degenerative change is seen. IMPRESSION: Focal bilateral calcification can be seen before segments, 50% narrowing on each side. No additional intracranial arterial abnormality is seen. No significant abnormality is seen within the arteries of the neck. Any quantitative measurements of stenosis were performed using NASCET criteria. Dictated by: Cali Rosales M.D. on 05/13/2024 at 17:58 Approved by: Cali Rosales M.D. on 05/13/2024 at 18:02
--- NOTE | 2024-05-13 18:11 | DI.CT.S_ITS ---
PROCEDURE: CT STROKE INDICATIONS: stroke TECHNIQUE: Noncontrast 4.5 mm thick angled axial sections acquired from the foramen magnum to the vertex, with coronal reformats. For radiation dose reduction, the following was used: automated exposure control, adjustment of mA and/or kV according to patient size. COMPARISON: [facility], CT, CT HEAD/BRAIN WO CON, 04/27/2024, 12:14. FINDINGS: Image quality: Diagnostic. CSF spaces: Basal cisterns are patent. No extra-axial fluid collections. The ventricles are symmetric in size and shape. Brain: No intracranial bleeds or masses. There is cerebral volume loss for age, with resultant ventricular and sulcal prominence. There are periventricular and deep white matter chronic small vessel ischemic changes. There is intracranial internal carotid artery atherosclerosis. Skull and face: Calvarium and visualized facial bones appear intact, without suspicious lesions. Sinuses: Visualized sinuses and mastoids are clear. IMPRESSION: 1. No CT evidence of acute intracranial pathology. 2. Advanced white matter small vessel chronic ischemic changes unchanged from prior study. 3. Findings were discussed with Dr. Montanez in the ER on 05/13/2024 at 6:25 p.m.. This study fulfills neurological imaging criteria for inclusion or exclusion of acute stroke therapies based on available published neurological guidelines. Dictated by: Per Dominguez M.D. on 05/13/2024 at 18:22 Approved by: Per Dominguez M.D. on 05/13/2024 at 18:25
--- NOTE | 2024-05-13 18:15 | EKG_ITS ---
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
--- NOTE | 2024-05-13 18:16 | ED.NEUROSD ---
HPI - Neuro Symptoms/Deficit General Chief Complaint: Neuro Symptoms/Deficit Stated Complaint: Code Stroke Time Seen by Provider: 05/13/24 18:11 Source: patient, EMS, RN notes reviewed and old records reviewed Mode of arrival: EMS Limitations: altered mental status History of Present Illness HPI Narrative: 78-year-old female history of hypertension, dyslipidemia, hypothyroidism who presents with concern for code stroke. Patient is altered with dysarthria, confusion onset reported to possibly be for 4:30 p.m. today although unclear if patient's symptoms started while she was face timing with her son or started before. Patient is able to tell me her name, she does not know the year, she indicates that she feels nauseated but denies any headache no chest pain or shortness of breath, no vision changes, she states her body's not working right when I ask if she was having any numbness tingling or weakness of her extremities. She indicates it is hard for her to express herself. Does not appear that she takes any anticoagulants from her EMR she is unsure. Patient did have a recent hospitalization for hyponatremia with a sodium of 119 and had an office visit today in the morning. Related Data Home Medications Medication Instructions Recorded Confirmed acetaminophen 325 mg tablet 325 mg PO PRN PRN pain 05/31/19 05/13/24 cholecalciferol (vitamin D3) 25 1,000 unit PO DAILY 10/23/20 05/13/24 mcg (1,000 unit) capsule (Vitamin D3) atenolol 50 mg tablet 100 mg PO BEDTIME 04/27/24 05/13/24 Previous Rx's Medication Instructions Recorded losartan 100 mg tablet 100 mg PO QAM #90 tabs 06/09/23 amlodipine 10 mg tablet 10 mg PO DAILY #90 tabs 06/15/23 Disabled Parking #1 ea 10/26/23 atorvastatin 40 mg tablet 40 mg PO DAILY #90 tabs 02/01/24 omeprazole 20 mg capsule,delayed 20 mg PO DAILY #90 caps 02/01/24 release levothyroxine 75 mcg tablet 75 mcg PO DAILY #90 tabs 04/20/24 polyethylene glycol 3350 17 17 g PO DAILY #510 grams 04/29/24 gram/dose oral powder (Miralax) Allergies Allergy/AdvReac Type Severity Reaction Status Date / Time bacitracin Allergy Unknown Verified 05/13/24 10:18 [From NEOSPORIN ([id number])] codeine [CODEINE] Allergy Unknown Verified 05/13/24 10:18 morphine [MORPHINE] Allergy Unknown Verified 05/13/24 10:18 neomycin Allergy Unknown Verified 05/13/24 10:18 [From NEOSPORIN ([id number])] polymyxin B Allergy Unknown Verified 05/13/24 10:18 [From NEOSPORIN ([id number])] tramadol AdvReac Severe GI Upset Verified 05/13/24 10:18 cephalexin AdvReac Intermediate Shaky/Nervo Verified 05/13/24 10:18 us Review of Systems Review of Systems ROS Unobtainable: All systems reviewed & are unremarkable except as noted in HPI and below Patient History Medical History Pelvic fracture SARS-CoV-2 positive Acute hyponatremia History of adenomatous polyp of colon Hemorrhoids, internal Fractures (~2018) Mumps Measles Chicken pox Tinnitus (~2018) Hearing loss Cataracts, bilateral (~1999) GERD (gastroesophageal reflux disease) (~2006) Pulmonary embolism (~2010) Osteoporosis (~2018) Type 2 diabetes mellitus Essential hypertension (~2008) Mixed hyperlipidemia Acquired hypothyroidism Surgical History Anesthesia Status post surgical manipulation of knee joint (~2011) Compartment syndrome (~2011) Broken leg (~2010) History of back surgery (~2000) Family History Father Stroke Mother History of heart disease Social History marital status: household members: spouse Smoking Status: Never smoker substance use type: does not use Smoking Status: Never smoker alcohol intake frequency: 0-2 drinks per day Substance Use Type: does not use Exam Narrative Exam Narrative: GEN: well nourished, elderly appearing female, alert and oriented x 2 so, patient appears to be in moderate distress. HEENT: Atraumatic, pupils are equal round reactive to light, extraocular movements are intact, nares are clear, TMs are clear with no fluid, there is no conjunctival pallor. Throat is clear without any exudates, erythema, tonsillar enlargement or uvular deviation, mild facial droop HEART: Regular rate and rhythm without murmur, clicks, rubs. Pulses equal bilateral upper extremities and bilateral extremities. LUNGS:Lungs clear to auscultation, no wheezes, rales, crackles, chest moves symmetrically, no tachypnea ABD:bowel sounds normal, soft, non-tender, no guarding, rebound, rigidity, no masses noted, no hepatosplenomegaly MSCL: Non-tender, no muscle atrophy, patient does not have any drift with the upper extremities does have some drift with the right lower extremity. Has difficulty following commands and unable to perform heel-devlin or ayttpl-kbpz-xczuvm but seems to have some difficulty. NEURO:CN 2-12 intact, patient indicates sensation feels weird but unclear if right versus left. Positive for dysarthria and aphasia Initial Vital Signs Initial Vital Signs: Vital Signs Pulse Rate 96 H 05/13/24 18:20 Scores NIH Stroke Scale Level of Conciousness: Alert, keenly responsive Ask month/age: Answers neither question correctly, aphasic, stuporous, coma Open/close eyes, close hand: Performs both tasks correctly Best gaze horizontal: Normal Visual mayorga: No visual loss Facial palsy: Minor paralysis, flattened nasolabial fold, asymmetry on smiling Left arm drift: No drift for full 10 sec Right arm drift: No drift for full 10 sec Left leg drift: No drift for full 5 sec Right leg drift: Some effort against gravity, cannot maintain, drifts down to bed Limb ataxia: Present in two limbs (Patient has difficulty performing.) Sensory on face/arms/legs: Mild to moderate sensory loss, can tell touch Best language: Mild to moderate, slurs some words Dysarthria: Mild to mod,some slurring Extinction or inattention: Visual, tactile, auditory, spatial or personal inattention to stimuli Total NIH Stroke scale score: 11 Course Orders Ordered: ED Orders 05/13/24 18:33 Complete Blood Count AUTO DIFF Stat Comprehensive Metabolic Panel Stat Ethanol (ETOH) Stat PTT Partial Thromboplastin Obie Stat Prothrombin Time INR Stat Troponin & CK Cardiac Panel Stat 05/13/24 20:08 Urinalysis and Microscopic Stat Urine Drug Screen, Rapid Stat Discontinued Medications Ondansetron HCl (Ondansetron 4 Mg/2 Ml Inj) 4 mg IV NOW ONE Stop: 05/13/24 18:25 Last Admin: 05/13/24 19:26 Dose: 4 mg Documented By: SARAH Ondansetron HCl (Ondansetron 4 Mg/2 Ml Inj) 4 mg IV NOW ONE Stop: 05/13/24 21:52 Last Admin: 05/13/24 21:55 Dose: 4 mg Documented By: SARAH Tenecteplase (Tenecteplase 50 Mg Vial) 20 mg 0.25 mg/kg (20 mg) IV NOW ONE Stop: 05/13/24 19:22 Last Admin: 05/13/24 19:33 Dose: 20 mg Documented By: SARAH Co-signed By: COUNT INCLUDES THE [facility] Vital Signs Vital signs: Vital Signs - 8 hr 05/13/24 19:35 05/13/24 19:35 05/13/24 19:40 Pulse Rate 87 90 Respiratory Rate 21 21 Blood Pressure 175/77 H Pulse Oximetry 96 95 Oxygen Delivery Method 05/13/24 19:40 05/13/24 19:45 05/13/24 19:45 Pulse Rate 88 Respiratory Rate 22 Blood Pressure 173/85 H 171/92 H Pulse Oximetry 95 Oxygen Delivery Method Room Air 05/13/24 19:50 05/13/24 19:50 05/13/24 19:55 Pulse Rate 87 87 Respiratory Rate 20 Blood Pressure 171/87 H Pulse Oximetry 95 95 Oxygen Delivery Method 05/13/24 19:57 05/13/24 19:57 05/13/24 20:00 Pulse Rate 87 Respiratory Rate 22 Blood Pressure 153/86 H 152/70 H Pulse Oximetry 95 Oxygen Delivery Method 05/13/24 20:00 05/13/24 20:05 05/13/24 20:06 Pulse Rate 86 84 84 Respiratory Rate 25 H 23 21 Blood Pressure Pulse Oximetry 95 96 96 Oxygen Delivery Method 05/13/24 20:06 05/13/24 20:10 05/13/24 20:11 Pulse Rate 84 86 Respiratory Rate 18 20 Blood Pressure 142/70 H Pulse Oximetry 94 95 Oxygen Delivery Method 05/13/24 20:11 05/13/24 20:15 05/13/24 20:16 Pulse Rate 85 85 Respiratory Rate 19 18 Blood Pressure 163/94 H Pulse Oximetry 95 95 Oxygen Delivery Method 05/13/24 20:16 05/13/24 20:20 05/13/24 20:20 Pulse Rate 85 Respiratory Rate 21 Blood Pressure 136/90 156/70 H Pulse Oximetry 96 Oxygen Delivery Method Room Air 05/13/24 20:30 05/13/24 20:41 05/13/24 20:41 Pulse Rate 83 83 Respiratory Rate 17 Blood Pressure 154/81 H Pulse Oximetry 92 97 Oxygen Delivery Method 05/13/24 20:45 05/13/24 21:00 05/13/24 21:00 Pulse Rate 84 84 Respiratory Rate 11 L Blood Pressure 153/84 H Pulse Oximetry 96 95 Oxygen Delivery Method 05/13/24 21:15 05/13/24 21:30 05/13/24 21:43 Pulse Rate 87 85 88 Respiratory Rate 24 20 21 Blood Pressure Pulse Oximetry 96 94 96 Oxygen Delivery Method 05/13/24 21:43 05/13/24 21:45 Pulse Rate 86 Respiratory Rate Blood Pressure 162/91 H Pulse Oximetry 94 Oxygen Delivery Method MDM - Neuro Symptoms/Deficit Lab Data 05/13/24 18:33 05/13/24 18:33 Labs: Lab Results 05/13/24 05/13/24 05/13/24 Range/Units 18:33 20:08 20:08 WBC 9.9 (4.5-11.0) X10^3/uL RBC 4.06 (4.0-5.2) X10^6/uL Hgb 12.7 (12.0-16.0) g/dL Hct 37.2 (36-46) % MCV 91.8 (80-100) fL MCH 31.4 (26-34) PG MCHC 34.2 (30-36) % RDW 13.2 (11.6-14.8) % Plt Count 256 (150-400) X10^3/uL Neut % (Auto) 67.6 (50-75) % Lymph % (Auto) 20.2 L (25-40) % Stewart % (Auto) 9.5 (3-14) % Eos % (Auto) 2.0 (2-4) % Baso % (Auto) 0.7 (0-2) % Neut # (Auto) 6700 (3632-7002) /uL Lymph # (Auto) 2000 (0830-6440) /uL Stewart # (Auto) 900 (0-900) /uL Eos # (Auto) 200 (0-450) /uL Baso # (Auto) 100 (0-100) /uL PT 12.0 (9.4-12.5) SECONDS INR 1.0 (0.9-1.3) APTT 28 (25.1-36.5) SECONDS Sodium 122 L (137-145) mmol/L Potassium 4.2 (3.4-5.1) mmol/L Chloride 91 L (98-107) mmol/L Carbon Dioxide 17 L (22-32) mmol/L BUN 13 (7-17) mg/dL Creatinine 0.76 (0.52-1.04) mg/dL Estimated GFR > 60 (>60) mL/min BUN/Creatinine Ratio 17.1 (6-22) Glucose 151 H (80-110) mg/dL Calcium 10.1 (8.4-10.2) mg/dL Total Bilirubin 0.7 (0.2-1.3) mg/dL AST 30 (14-36) IU/L ALT 18 (<35) IU/L Alkaline Phosphatase 239 H (38-126) U/L Total Creatine Kinase 39 (30-135) U/L Troponin I < 0.012 (0.01-0.034) ng/mL Total Protein 7.9 (6.3-8.2) g/dL Albumin 4.7 (3.5-5.0) g/dL Globulin 3.2 (1.7-4.1) g/dL Albumin/Globulin Ratio 1.5 (1.0-2.8) Urine Color Yellow Urine Appearance Clear Urine pH 6.5 Normal (4.5-8.0) Ur Specific [place] <=1.005 (1.000-1.035) Urine Protein Negative (Negative) Urine Glucose (UA) Negative (Negative) g/dL Urine Ketones Trace H (NEGATIVE) Urine Occult Blood Negative (Negative) Urine Nitrate Negative (Negative) Urine Bilirubin Negative (NEGATIVE) Urine Urobilinogen 0.2 (0.2) E.U./dL Ur Leukocyte Esterase Trace H (NEGATIVE) Urine RBC 0-1/hpf (0-5/HPF) Urine WBC 1-5/hpf (0-5/HPF) Ur Squamous Epith Cells 0-1 /hpf (0-5/HPF) Urine Bacteria Occasional (0-1) (None) Ur Culture Indicated? Cult not indicated Vol Urine Centrifuged 10ml (spun) U Opiates 300ng/mL cut Negative (Negative) Ur Oxycodone Screen Negative (Negative) Urine Methadone Screen Negative (Negative) Ur Barbiturates Screen Negative (Negative) U Tricyclic Antidepress Negative (Negative) Ur Phencyclidine Scrn Negative (Negative) Ur Amphetamines Screen Negative (Negative) U Methamphetamines Scrn Negative (Negative) Ur MDMA Scrn (Ecstasy) Negative (Negative) U Benzodiazepines Scrn Negative (Negative) Urine Cocaine Screen Negative (Negative) U Marijuana (THC) Screen Negative (Negative) Urine Specific [place] Normal (Normal) Ethyl Alcohol < 10 ( - 10) mg/dL Ur Creatinine Normal (Normal) Point of Care Testing Glucose POC [address] scan - head: Radiologist's Impression: Candelaria Weaver Arabella??78??F??1945 ? Allergy/Adv: bacitracin, codeine, morphine, neomycin, polymyxin B, tramadol, cephalexin (More??) Close Head/Neck CTA (Signed) Cali Rosales - 05/13/[address] (Signed) Per Dominguez - 05/13/[address] (Signed) Cuong Hurley - 04/27/24 Abdomen/Pelvis CT (Signed) Cuong Hurley - 04/27/24 Chest X-Ray (Signed) Cuong Hurley - 04/27/24 Head/Neck CTA (Signed) Per Dominguez - 09/09/23 Chest X-Ray (Signed) Per Dominguez - 09/09/23 Abdomen/Pelvis CT (Signed) Isabella Qureshi - 10/08/21 Mammogram Screening (Signed) Ada Pulido - 11/23/20 DEXA Result 03/09/20 Bone Densitometry 03/09/20 Abdomen/Pelvis CT (Signed) Trixie Abad - 12/26/19 Chest X-Ray (Signed) Cuong Hurley - 06/27/19 Head/Neck CTA (Signed) Cecil Perry - 05/31/19 Mammogram Screening (Signed) Danny Rodriguez - 12/17/18 Abdomen/Pelvis CT (Signed) Corin Nunez - 05/25/18 Chest/Abdomen X-ray (Signed) Corin Nunez - 05/25/18 Launch?[address] [address] [address] Scan Report Signed Patient: Candelaria Weaver MR#: [id number] : 1945 Acct:[id number] Age/Sex: 78 / F Date of Service: 05/13/24 Loc: ED Accession Number: [id number] Procedure: CT Stroke Ordering Provider: Isabel Montanez D.O. PROCEDURE: CT STROKE INDICATIONS: stroke TECHNIQUE: Noncontrast 4.5 mm thick angled axial sections acquired from the foramen magnum to the vertex, with coronal reformats. For radiation dose reduction, the following was used: automated exposure control, adjustment of mA and/or kV according to patient size. COMPARISON: [facility], CT, CT HEAD/BRAIN WO CON, 04/27/2024, 12:14. FINDINGS: Image quality: Diagnostic. CSF spaces: Basal cisterns are patent. No extra-axial fluid collections. The ventricles are symmetric in size and shape. Brain: No intracranial bleeds or masses. There is cerebral volume loss for age, with resultant ventricular and sulcal prominence. There are periventricular and deep white matter chronic small vessel ischemic changes. There is intracranial internal carotid artery atherosclerosis. Skull and face: Calvarium and visualized facial bones appear intact, without suspicious lesions. Sinuses: Visualized sinuses and mastoids are clear. IMPRESSION: 1. No CT evidence of acute intracranial pathology. 2. Advanced white matter small vessel chronic ischemic changes unchanged from prior study. 3. Findings were discussed with Dr. Montanez in the ER on 05/13/2024 at 6:25 p.m.. This study fulfills neurological imaging criteria for inclusion or exclusion of acute stroke therapies based on available published neurological guidelines. Dictated by: Per Dominguez M.D. on 05/13/2024 at 18:22 Approved by: Per Dominguez M.D. on 05/13/2024 at 18:25 CTA - brain/neck: Radiologist's Impression: Diagnostics Reports Candelaria Weaver??78??F??1945 ? Allergy/Adv: bacitracin, codeine, morphine, neomycin, polymyxin B, tramadol, cephalexin (More??) Close Head/Neck CTA (Signed) Cali Rosales - 05/13/[address] (Signed) Per Dominguez - 05/13/[address] (Signed) Cuong Hurley - 04/27/24 Abdomen/Pelvis CT (Signed) Cuong Hurley - 04/27/24 Chest X-Ray (Signed) Cuong Hurley - 04/27/24 Head/Neck CTA (Signed) Per Dominguez - 09/09/23 Chest X-Ray (Signed) Per Dominguez - 09/09/23 Abdomen/Pelvis CT (Signed) KieraIsabella - 10/08/21 Mammogram Screening (Signed) Ada Pulido - 11/23/20 DEXA Result 03/09/20 Bone Densitometry 03/09/20 Abdomen/Pelvis CT (Signed) Trixie Abad - 12/26/19 Chest X-Ray (Signed) Cuong Hurley - 06/27/19 Head/Neck CTA (Signed) Fredrick Perrywn - 05/31/19 Mammogram Screening (Signed) MichaelRaheemmiriam - 12/17/18 Abdomen/Pelvis CT (Signed) Corin Nunez - 05/25/18 Chest/Abdomen X-ray (Signed) Corin Nunez - 05/25/18 Launch?[place] [address] CT Scan Report Signed Patient: Candelaria Weaver MR#: [id number] : 1945 Acct:[id number] Age/Sex: 78 / F Date of Service: 05/13/24 Loc: ED Accession Number: [id number] Procedure: CT angio head and neck Ordering Provider: Isabel Montanez D.O. PROCEDURE: CT ANGIO HEAD AND NECK INDICATIONS: stroke TECHNIQUE: After the administration of intravenous contrast, 1 mm thick sections acquired from the aortic arch through the [place] of [place]. 3-dimensional hzdqves-hcwncwzuh-pkajfinoia (MIP) and/or volume rendering reformats were acquired of the central intracranial vasculature and neck separately. For radiation dose reduction, the following was used: automated exposure control, adjustment of mA and/or kV according to patient size. COMPARISON: [facility], CT, CT HEAD/BRAIN WO CON, 04/27/2024, 12:14. [facility], CT, CT STROKE, 05/13/2024, 18:18. [facility], CT, CT ANGIO HEAD AND NECK, 09/09/2023, 11:01. FINDINGS: Image quality: Limited by bolus timing, with venous contamination. BRAIN: CSF spaces: Ventricles are normal in size and shape. Basal cisterns are patent. No extra-axial fluid collections. Brain: No significant abnormality of the brain can be seen. Skull and face: Calvarium and facial bones appear intact, without suspicious lesions. Orbits appear normal. Sinuses: Sinuses and mastoids are clear. HEAD CT ANGIOGRAPHY: Anterior circulation: Intracranial internal carotid arteries are normal in size and flow. There is a diminutive right A1 segment, with a corresponding robust left A1 segment. This is considered to be a normal developmental variant of the [place], of typically no clinical consequence. The flow within the paired anterior cerebral arteries is otherwise normal and symmetric. The flow within the middle cerebral arteries is normal and symmetric. The anterior communicating artery is seen. No aneurysms are seen. Posterior circulation: Focal calcification can be seen involving the V4 segments, with 50% narrowing on each side. There is a normal appearing basilar artery. Flow within the posterior cerebral arteries is normal and symmetric. No aneurysms are seen. NECK CT ANGIOGRAPHY: Carotid system: The great vessels demonstrate a conventional anatomy as they arise from the aortic arch. The origins of the common carotid arteries appear patent. The common carotid arteries demonstrate normal caliber and courses. The bifurcation regions demonstrate atherosclerotic irregularity and calcification, left worse than. However, no hemodynamically significant stenosis can be seen. The more distal internal carotid arteries demonstrate normal course and caliber. Posterior circulation: The origins of the vertebral arteries both appear widely patent. The more superior extracranial portions of both vertebral arteries also demonstrate normal courses and calibers. The left vertebral artery is dominant to the right. Soft tissues: Visualized neck soft tissues demonstrate no suspicious abnormalities. Bones: No suspicious bony lesions. Visualized cervical spine appears normally aligned. Moderate cervical spine degenerative change is seen. IMPRESSION: Focal bilateral calcification can be seen before segments, 50% narrowing on each side. No additional intracranial arterial abnormality is seen. No significant abnormality is seen within the arteries of the neck. Any quantitative measurements of stenosis were performed using NASCET criteria. Dictated by: Cali Rosales M.D. on 05/13/2024 at 17:58 Approved by: Cali Rosales M.D. on 05/13/2024 at 18:02 ECG Data Attestation: I personally reviewed and interpreted this ECG as follows: Interpretation: Sinus rhythm with first-degree AV block, left bundle-branch block, rate of 96 IN 214 QRS of 158 QTC of 507. MDM Narrative Medical decision making narrative: 78-year-old female history of recent hyponatremia but also presents was normal earlier today had an office visit states he left for the store about 4:30 p.m. today and was normal at that time and when he returned was altered such as this. Patient is not anticoagulated she was hypertensive particularly her diastolic. She is dysarthric aphasia, her NIH is 11 although some difficulty with the commands and unclear if patient has true lateralizing defect but does have facial droop. Patient is still currently in the window for TNK. Patient was noted to history of pelvic fracture although nonoperative. Head CT non-con is negative there was delay with access which was difficult and CT angio was then obtained Labs from earlier today do show sodium 125 but consistent with priors earlier this month potassium 4.7 chloride 91 CO2 of 20 BUN 13 creatinine 0.94 hemoglobin A1c was 6.1, LFTs were negative. CBC from today EKG shows sinus rhythm with first-degree AV Patient did have a positive COVID test on 04/27/2024. CTA focal bilateral calcifications seen report segments % narrowing on each side significant abnormality intracranially or arteries of the neck. Images has been pushed [facility] stroke, consultation for tPA potential contraindications include recent pelvic fracture although patient is nonoperative and weight-bearing. Most recent blood pressure was 145/75. 1857 consult with neurology /[facility]: Dr. Paredes asked that we go ahead mixed tPA, they will meet with the patient to evaluate they will review the CT angio which he had not resulted yet. They do ask if we can touch base with the Orthopedic surgery as patient has pelvic fracture but unsure of the exact fracture has been nonoperative patient has been ambulating on it since March when it occurred. Spoke with Dr. Ronquillo, orthopedic surgery states unknown exact risk as unclear the exact fracture for the patient has been outside facility we do not have access to those records and a timely manner. There will be some but states risk is likely outweighed by the benefit of treatment of the stroke and dependent on fracture there is potential for embolization if there were significant issues. 192 Neurology at bedside via tele monitor with has been and patient decision was made to give TNK after discussion of risks with no recent pelvic fracture. Patient and family are aware of potential since. TNK ios being given, plan for transfer. Reaching out to coordinator at /[facility] and Dr. Paredes will also talk with them to coordinate. On rechecked patient has had some improvement in mentation and speech. Dr. Goss is the official accepting physician. Plan for ALS ground transport, weather precludes any airlift. Critical Care Time Critical Care Time Critical Care Time: Yes Total Critical Care Time: 40 Attestation: The high probability of a clinically significant, sudden or life threatening deterioration of the neurologic/cardiac system(s) required my full and direct attention, intervention and personal management. The aggregate critical care time was [--] minutes. This time is in addition to time spent performing reported procedures but includes the following: [x] Data Review and interpretation [x] Patient assessment and monitoring of vital signs [x] Documentation [x] Medication orders and management Discharge Plan Departure Patient Disposition: General Acute Hospital Clinical Impression: Acute CVA (cerebrovascular accident) Prescriptions: No Action losartan 100 mg tablet 100 mg PO QAM Qty: 90 2RF (DME) Disabled Parking See Rx Instructions .ROUTE .MEDSUPPLY Qty: 1 0RF Rx Instructions: Patient qualifies for disabled parking as per the attached form. atorvastatin 40 mg tablet 40 mg PO DAILY Qty: 90 3RF omeprazole 20 mg capsule,delayed release(DR/EC) 20 mg PO DAILY Qty: 90 3RF levothyroxine 75 mcg tablet 75 mcg PO DAILY Qty: 90 0RF amlodipine 10 mg tablet 10 mg PO DAILY Qty: 90 3RF atenolol 50 mg Tablet 100 mg PO BEDTIME polyethylene glycol 3350 [Miralax] 17 gram/dose powder 17 g PO DAILY Qty: 510 0RF acetaminophen 325 mg Tablet 325 mg PO PRN MDD 4000 mg PRN (Reason: pain) cholecalciferol (vitamin D3) [Vitamin D3] 25 mcg (1,000 unit) capsule 1,000 unit PO DAILY Referrals: Lance Ascencio MD [Primary Care Provider] -
[2024-05-13 19:00] LABS: PTT Partial Thromboplastin Tim 28 SECONDS (25.1-36.5)
[2024-05-13 19:01] LABS: Add Manual Diff / Slide Review NO; Basophils Absolute Auto 100 /uL (0-100); Basophils Percent Auto 0.7 % (0-2); Eosinophils Absolute Auto 200 /uL (0-450); Hematocrit 37.2 % (36-46); Hemoglobin 12.7 g/dL (12.0-16.0); Lymphocytes Absolute Auto 2000 /uL (1100-4500); Lymphocytes Percent Auto 20.2 % (25-40); Mean Corpuscular HGB Conc 34.2 % (30-36); Mean Corpuscular Hemoglobin 31.4 PG (26-34); Mean Corpuscular Volume 91.8 fL (80-100); Monocytes Absolute Auto 900 /uL (0-900); Monocytes Percent Auto 9.5 % (3-14); Neutrophils Absolute Auto 6700 /uL (1500-7000); Neutrophils Percent Auto 67.6 % (50-75); Platelet Count 256 X10^3/uL (150-400); Red Blood Cell Count 4.06 X10^6/uL (4.0-5.2); Red Cell Distribution Width 13.2 % (11.6-14.8); White Blood Cell Count 9.9 X10^3/uL (4.5-11.0)
[2024-05-13 19:11] LABS: Alanine Aminotransferase 18 IU/L (<35); Albumin 4.7 g/dL (3.5-5.0); Albumin Globulin Ratio 1.5 (1.0-2.8); Alkaline Phosphatase 239 U/L (38-126); Aspartate Aminotransferase 30 IU/L (14-36); BUN Creatinine Ratio 17.1 (6-22); Bilirubin Total 0.7 mg/dL (0.2-1.3); Blood Urea Nitrogen 13 mg/dL (7-17); Calcium 10.1 mg/dL (8.4-10.2); Carbon Dioxide 17 mmol/L (22-32); Chloride 91 mmol/L (98-107); Creatine Kinase 39 U/L (30-135); Estimated Glomerular Filt Rate > 60 mL/min (>60); Ethanol (ETOH) < 10 mg/dL; Globulin 3.2 g/dL (1.7-4.1); Glucose 151 mg/dL (80-110); HEMOLYSIS 32 (0-50); Potassium 4.2 mmol/L (3.4-5.1); Sodium 122 mmol/L (137-145); Total Protein 7.9 g/dL (6.3-8.2)
[2024-05-13 19:22] LABS: Troponin I < 0.012 ng/mL (0.01-0.034)
[2024-05-13] MEDS: ONDANSETRON 4 MG/2 ML INJ IV ×2 (19:26→21:55)
[2024-05-13] MEDS: TENECTEPLASE 50 MG VIAL 20 MG IV (19:33)
--- NOTE | 2024-05-13 19:58 | PC.NURSE ---
Addendum entered by Raine Glass R.N. 05/13/24 21:34: TNK was given at 1930 Original Note: Stroke equipment at bedside neuro gave the ok for the TNK, pharmacy at bedside to draw it up, this RN gave the med at 1730, see MAR. Patients aphasia has noticeably decreased, vitals have remained within parameters. Blood pressure cycling every 5 minutes, changed patient into gown, placed purewick. Bill at bedside.
[2024-05-13 20:17] LABS: Ur Creatinine Normal (Normal); Ur Specific Gravity Normal (Normal); Urine Amphetamines Negative (Negative); Urine Barbiturates Negative (Negative); Urine Benzodiazepines Negative (Negative); Urine Cocaine Negative (Negative); Urine MDMA Negative (Negative); Urine Methamphetamines Negative (Negative); Urine Opiates Negative (Negative); Urine Phencyclidine Negative (Negative); Urine THC Negative (Negative); Urine pH Normal (Normal)
[2024-05-13 20:18] LABS: Urine Methadone Negative (Negative); Urine Oxycodone Negative (Negative); Urine Tricyclic Antidepressant Negative (Negative)
[2024-05-13 20:20] LABS: Appearance Urine UA CLEAR; Bilirubin Urine UA NEGATIVE (NEGATIVE); Color Urine UA YELLOW; Glucose Urine UA NEGATIVE (Negative); Ketones Urine UA TRACE (NEGATIVE); Leukocyte Esterase Urine UA TRACE (NEGATIVE); Nitrite Urine UA NEGATIVE (Negative); Occult Blood Urine UA NEGATIVE (Negative); Protein Urine UA NEGATIVE (Negative); Specific Gravity Urine UA <=1.005 (1.000-1.035); Urobilinogen Urine UA 0.2 E.U./dL (0.2)
--- NOTE | 2024-05-13 20:21 | PC.NURSE ---
Addendum entered by Raine Glass R.N. 05/13/24 21:35: times that NIH was done were 194, 1999, and 2014 Original Note: 1745- first modified NIH is in paper chart, patient scored 3 (1b:LOC answered both incorrectly, and 9: mild aphasia present) 1800-modified NIH patient scored 3 (1b:LOC answered both incorrectly, and 9: mild aphasia present) 1814-modified NIH scored 2 (1b:LOC answered both incorrectly)
[2024-05-13 20:23] LABS: pH Urine UA 6.5 (4.5-8.0)
[2024-05-13 20:25] LABS: Bacteria Urine Occasional (0-1); Culture Indicated Urine Cult Not Indicated; RBC Urine 0-1/HPF (0-5/HPF); Squamous Epithelial Cell Urine 0-1 /HPF (0-5/HPF); Urine Volume 10mL (spun); WBC Urine 1-5/HPF (0-5/HPF)
--- NOTE | 2024-05-13 21:17 | PC.NURSE ---
Addendum entered by Raine Glass R.N. 05/13/24 21:23: provider Ok'd starting new IV Original Note: This RN came into the patients room and her IV had come out, bleeding is controlled and pressure bandage has been applied. New IV to be placed before transport comes at [id number]
--- NOTE | 2024-05-13 21:43 | PC.NURSE ---
Patient was given US guided IV due to difficulty finding viable IV sights on the surface of her arms. okayed a post TNK IV attempt due to the patient having no IV access. Transport on scene awaiting departure to transfer facility.
== END 2024-05-13 22:00 | disposition short-term general hospital (02) ==
PROVIDERS: Emergency Provider Emergency Medicine; PCP Internal Medicine
DX: I63.9 Cerebral infarction, unspecified (principal); R29.711 NIHSS score 11; I44.0 Atrioventricular block, first degree; I44.7 Left bundle-branch block, unspecified; E87.1 Hypo-osmolality and hyponatremia; E11.9 Type 2 diabetes mellitus without complications; E78.2 Mixed hyperlipidemia; I10 Essential (primary) hypertension
CPT/HCPCS: 36415; 70450; 70496; 70498; 80053; 80061; 80305; 80320; 81001; 82550; 82962; 83036; 83735; 84484; 85025; 85610; 85730; 93005; 96374; 96375; 96376; 99284; 99291; J3101; J2405

== ENCOUNTER → 2024-05-18 09:16 | Outpatient (CLI) | payer MEDICARE, OTHER, SELFPAY ==
[2024-04-27 17:14] VITALS: BMI 25.8
[2024-05-18 11:42] LABS: BUN Creatinine Ratio 22.4 (6-22); Blood Urea Nitrogen 13 mg/dL (7-17); Calcium 9.8 mg/dL (8.4-10.2); Carbon Dioxide 22 mmol/L (22-32); Chloride 94 mmol/L (98-107); Estimated Glomerular Filt Rate > 60 mL/min (>60); Glucose 123 mg/dL (80-110); HEMOLYSIS < 15 (0-50); Potassium 4.4 mmol/L (3.4-5.1); Sodium 128 mmol/L (137-145)
[2024-05-18 15:33] LABS: Appearance Urine UA CLEAR; Bilirubin Urine UA NEGATIVE (NEGATIVE); Color Urine UA YELLOW; Glucose Urine UA NEGATIVE (Negative); Ketones Urine UA NEGATIVE (NEGATIVE); Leukocyte Esterase Urine UA TRACE (NEGATIVE); Nitrite Urine UA NEGATIVE (Negative); Occult Blood Urine UA NEGATIVE (Negative); Protein Urine UA TRACE (Negative)
[2024-05-18 15:43] LABS: Bacteria Urine Occasional (0-1); RBC Urine None Seen (0-5/HPF); Renal Epithelial Cells Urine 1-5/HPF (0-1/HPF); Squamous Epithelial Cell Urine 5-10 /HPF (0-5/HPF); Urine Volume 10mL (spun); WBC Urine 5-10/HPF (0-5/HPF)
[2024-05-18 15:44] LABS: Amorphous Sediment Urine 1+; Culture Indicated Urine Specimen Cultured
== END ==
PROVIDERS: PCP Internal Medicine; Referring Provider Internal Medicine; Visit Provider Internal Medicine
DX: I10 Essential (primary) hypertension (principal); E03.9 Hypothyroidism, unspecified; R32 Unspecified urinary incontinence
CPT/HCPCS: 36415; 80048; 81001; 87077; 87086; 87186

== ENCOUNTER 2024-05-20 13:10 | Emergency (ER) | payer MEDICARE, OTHER, SELFPAY ==
[2024-04-27 17:14] VITALS: BMI 25.8
[2024-05-20] VITALS (11 sets, daily range): BP systolic 123–166; BP diastolic 61–107; PULSE 88–100; RESP 20; TEMP 36.9; O2SAT 93–97; BMI 25.8
--- NOTE | 2024-05-20 14:00 | ED.NAVMDI ---
HPI - Nausea/Vomiting/Diarrhea General Chief complaint: Nausea/Vomiting/Diarrhea Stated complaint: N/V Time Seen by Provider: 05/20/24 13:43 History of Present Illness HPI Narrative: Patient here with complaints of nausea and vomiting and decreased urine output for the past 24 hours. Patient contacted primary care Dr. Ascencio yesterday. Urinalysis was done and prescription antibiotic was called in. Patient complains of low back pain fullness in the lower abdomen with decreased urine output. No frequency urgency or dysuria. No fever chills. No new numbness tingling or weakness or speech changes. Related Data Home Medications Medication Instructions Recorded Confirmed acetaminophen 325 mg tablet 325 mg PO PRN PRN pain 05/31/19 05/26/24 cholecalciferol (vitamin D3) 25 1,000 unit PO DAILY 10/23/20 05/26/24 mcg (1,000 unit) capsule (Vitamin D3) atenolol 50 mg tablet 100 mg PO BEDTIME 04/27/24 05/26/24 aspirin 81 mg tablet,delayed 81 mg PO DAILY 05/26/24 05/26/24 release sodium chloride 1,000 mg soluble 1,000 mg PO BID 05/26/24 05/26/24 tablet Previous Rx's Medication Instructions Recorded losartan 100 mg tablet 100 mg PO QAM #90 tabs 06/09/23 amlodipine 10 mg tablet 10 mg PO DAILY #90 tabs 06/15/23 Disabled Parking #1 ea 10/26/23 atorvastatin 40 mg tablet 40 mg PO DAILY #90 tabs 02/01/24 omeprazole 20 mg capsule,delayed 20 mg PO DAILY #90 caps 02/01/24 release levothyroxine 75 mcg tablet 75 mcg PO DAILY #90 tabs 04/20/24 polyethylene glycol 3350 17 17 g PO DAILY #510 grams 04/29/24 gram/dose oral powder (Miralax) gabapentin 100 mg capsule 100 mg PO TID #90 caps 05/17/24 levetiracetam 500 mg tablet 500 mg PO BID #180 tabs 05/26/24 Allergies Allergy/AdvReac Type Severity Reaction Status Date / Time bacitracin Allergy Unknown Verified 05/26/24 10:19 [From NEOSPORIN ([id number])] codeine [CODEINE] Allergy Unknown Verified 05/26/24 10:19 morphine [MORPHINE] Allergy Unknown Verified 05/26/24 10:19 neomycin Allergy Unknown Verified 05/26/24 10:19 [From NEOSPORIN ([id number])] polymyxin B Allergy Unknown Verified 05/26/24 10:19 [From NEOSPORIN ([id number])] nitrofurantoin AdvReac Severe nausea/vomi Verified 05/26/24 10:56 ting tramadol AdvReac Severe GI Upset Verified 05/26/24 10:19 cephalexin AdvReac Intermediate Shaky/Nervo Verified 05/26/24 10:19 us Review of Systems Review of Systems Narrative: GENERAL: negative chills, fatigue, malaise, fever, sweats. HEENT: negative sinus pain, ear pain, sore throat RESPIRATORY: negative dyspnea, cough CARDIOVASCULAR: negative chest pain, palpitations GASTROINTESTINAL: Positive nausea, vomiting, abdominal pain : negative dysuria, frequency, hematuria, decreased urine output MUSCULOSKELETAL: negative muscle or bony pain SKIN: negative rash, skin lesions NEUROLOGIC: negative weakness, numbness negative headache ROS Unobtainable: All systems reviewed & are unremarkable except as noted in HPI and below Patient History Medical History (Updated 05/28/24 @ 00:00 by ) Seizure disorder Acute CVA (cerebrovascular accident) Hyponatremia Pelvic fracture SARS-CoV-2 positive Acute hyponatremia History of adenomatous polyp of colon Hemorrhoids, internal Fractures (~2018) Mumps Measles Chicken pox Tinnitus (~2018) Hearing loss Cataracts, bilateral (~1999) GERD (gastroesophageal reflux disease) (~2006) Pulmonary embolism (~2010) Osteoporosis (~2018) Type 2 diabetes mellitus Essential hypertension (~2008) Mixed hyperlipidemia Acquired hypothyroidism Surgical History Anesthesia Status post surgical manipulation of knee joint (~2011) Compartment syndrome (~2011) Broken leg (~2010) History of back surgery (~2000) Family History Father Stroke Mother History of heart disease Social History marital status: household members: spouse Smoking Status: Never smoker substance use type: does not use Smoking Status: Never smoker alcohol intake frequency: 0-2 drinks per day Substance Use Type: does not use Exam Narrative Exam Narrative: GENERAL: in no distress, not toxic not dyspneic HEAD: Normocephalic. EYES: Pupils equal round ENT: Mucous membranes moist. NECK: Trachea midline. CARDIOVASCULAR: Regular rate and rhythm RESPIRATORY: Clear to auscultation. Breath sounds equal bilaterally. No wheezes, rales, or rhonchi. GASTROINTESTINAL: Abdomen soft, mild suprapubic tenderness, no peritoneal signs bowel sounds are present. No pain out of portion exam. No CVA tenderness EXTREMITIES: No gross deformities. BACK: No flank tenderness. NEURO: AOx4. Clear speech SKIN: Warm and dry PSYCH: Not anxious, is cooperative Initial Vital Signs Initial Vital Signs: Vital Signs Temperature 98.5 F 05/20/24 13:20 Pulse Rate 96 H 05/20/24 13:20 Respiratory Rate 20 05/20/24 13:20 Blood Pressure 145/72 H 05/20/24 13:20 Pulse Oximetry 96 05/20/24 13:20 Oxygen Delivery Method Room Air 05/20/24 13:20 Course Orders Ordered: Discontinued Medications Sodium Chloride (Normal Saline 0.9%) 1,000 mls @ 1,000 mls/hr IV BOLUS ONE Stop: 05/20/24 14:59 Last Infusion: 05/20/24 15:45 Dose: Infused Documented By: Admin: 05/20/24 14:33 Dose: 1,000 mls/hr Documented By: TYLOR Ondansetron HCl (Ondansetron 4 Mg/2 Ml Inj) 4 mg IV NOW ONE Stop: 05/20/24 13:50 Last Admin: 05/20/24 14:34 Dose: 4 mg Documented By: TYLOR Vital Signs Vital signs: Vital Signs - 8 hr 05/20/24 13:20 05/20/24 14:14 05/20/24 14:15 Temperature 98.5 F Pulse Rate 96 H 95 H Respiratory Rate 20 Blood Pressure 145/72 H 163/75 H Pulse Oximetry 96 96 Oxygen Delivery Method Room Air 05/20/24 14:15 05/20/24 14:30 05/20/24 14:30 Temperature Pulse Rate 94 H 90 Respiratory Rate Blood Pressure 144/66 H Pulse Oximetry 96 95 Oxygen Delivery Method 05/20/24 15:00 05/20/24 15:01 05/20/24 15:01 Temperature Pulse Rate 100 H 100 H Respiratory Rate Blood Pressure 147/107 H Pulse Oximetry 97 Oxygen Delivery Method 05/20/24 15:15 05/20/24 15:15 05/20/24 15:30 Temperature Pulse Rate 99 H 88 Respiratory Rate Blood Pressure 166/86 H Pulse Oximetry 95 94 Oxygen Delivery Method Room Air 05/20/24 15:30 05/20/24 16:00 05/20/24 16:00 Temperature Pulse Rate 97 H Respiratory Rate Blood Pressure 130/63 123/61 Pulse Oximetry 95 Oxygen Delivery Method Room Air 05/20/24 16:30 05/20/24 17:00 Temperature Pulse Rate 94 H 97 H Respiratory Rate Blood Pressure Pulse Oximetry 93 94 Oxygen Delivery Method MDM - Nausea/Vomiting/Diarrhea Lab Data 05/20/24 14:30 05/20/24 14:30 Labs: Lab Results 05/20/24 05/20/24 05/20/24 Range/Units 14:30 14:35 15:35 WBC 13.8 H (4.5-11.0) X10^3/uL RBC 3.97 L (4.0-5.2) X10^6/uL Hgb 12.4 (12.0-16.0) g/dL Hct 37.1 (36-46) % MCV 93.5 (80-100) fL MCH 31.1 (26-34) PG MCHC 33.3 (30-36) % RDW 13.3 (11.6-14.8) % Plt Count 200 (150-400) X10^3/uL Neut % (Auto) 95.8 H (50-75) % Lymph % (Auto) 1.5 L (25-40) % Hyde % (Auto) 2.4 L (3-14) % Eos % (Auto) 0.2 L (2-4) % Baso % (Auto) 0.1 (0-2) % Neut # (Auto) 08123 H (2122-1897) /uL Lymph # (Auto) 200 L (1262-7371) /uL Hyde # (Auto) 300 (0-900) /uL Eos # (Auto) 0 (0-450) /uL Baso # (Auto) 0 (0-100) /uL Sodium 127 L (137-145) mmol/L Potassium 4.2 (3.4-5.1) mmol/L Chloride 93 L (98-107) mmol/L Carbon Dioxide 23 (22-32) mmol/L BUN 11 (7-17) mg/dL Creatinine 0.65 (0.52-1.04) mg/dL Estimated GFR > 60 (>60) mL/min BUN/Creatinine Ratio 16.9 (6-22) Glucose 140 H (80-110) mg/dL Calcium 9.6 (8.4-10.2) mg/dL Total Bilirubin 1.0 (0.2-1.3) mg/dL AST 27 (14-36) IU/L ALT 21 (<35) IU/L Alkaline Phosphatase 179 H (38-126) U/L Total Protein 8.4 H (6.3-8.2) g/dL Albumin 4.8 (3.5-5.0) g/dL Globulin 3.6 (1.7-4.1) g/dL Albumin/Globulin Ratio 1.3 (1.0-2.8) Urine Color Yellow Urine Appearance Clear Urine pH 7.5 (4.5-8.0) Ur Specific Tropic 1.015 (1.000-1.035) Urine Protein 1+ H (Negative) Urine Glucose (UA) Negative (Negative) g/dL Urine Ketones Negative (NEGATIVE) Urine Occult Blood Negative (Negative) Urine Nitrate Negative (Negative) Urine Bilirubin Negative (NEGATIVE) Urine Urobilinogen 1.0 (0.2) E.U./dL Ur Leukocyte Esterase Negative (NEGATIVE) Urine RBC None seen (0-5/HPF) Urine WBC None seen (0-5/HPF) Ur Squamous Epith Cells None seen (0-5/HPF) Urine Bacteria None seen (None) Ur Culture Indicated? Cult not indicated Vol Urine Centrifuged 10ml (spun) Chlamy pneumoniae PCR Not detected (Not Detect) Adenovirus (PCR) Not detected (Not Detect) B. pertussis DNA (PCR) Not detected (Not Detect) B.parapertussis DNA PCR Not detected (Not Detecte) Coronavirus OC43 (PCR) Not detected (Not Detect) Coronavirus HKU1 (PCR) Not detected (Not Detect) Coronavirus 229E (PCR) Not detected (Not Detect) SARS-CoV-2 (PCR) Not detected (Not Detecte) Coronavirus NL63 (PCR) Not detected (Not Detect) Human Metapneumovir PCR Not detected (Not Detect) Influenza Type A (PCR) Not detected (Not Detect) Influenza Type B (PCR) Not detected (Not Detect) M. pneumoniae (PCR) Not detected (Not Detect) Parainfluenza 1 (PCR) Not detected (Not Detect) Parainfluenza 2 (PCR) Not detected (Not Detect) Parainfluenza 3 (PCR) Not detected (Not Detect) Parainfluenza 4 (PCR) Not detected (Not Detect) RSV (PCR) Not detected (Not Detect) Entero/Rhino (PCR) Not detected (Not Detect) Imaging Data CT scan - abdomen/pelvis: Radiologist's Impression: [address] [address] [address] Scan Report Signed Patient: Candelaria Weaver MR#: [id number] : 1945 Acct:[id number] Age/Sex: 78 / F Date of Service: 05/20/24 Loc: ED Accession Number: [id number] Procedure: CT abdomen pelvis w con Ordering Provider: Roberto Hinojosa MD PROCEDURE: CT ABDOMEN PELVIS W CON INDICATIONS: IV contrast only/Low abdominal pain/vomiting TECHNIQUE: After the administration of intravenous contrast, axial sections acquired from the lung bases to the pubic symphysis. Coronal and sagittal reformats were performed. For radiation dose reduction, the following was used: automated exposure control, adjustment of mA and/or kV according to patient size. COMPARISON: [facility], CT, CT ABDOMEN PELVIS W CON, 04/27/2024, 12:14. FINDINGS: Image quality: Diagnostic. Lower Chest: No significant findings. ABDOMEN: Liver: No solid mass. Gallbladder: No radiopaque gallstones or wall thickening. Biliary ducts: No biliary dilation. Pancreas: No ductal dilation. Spleen: Size is within normal limits. Adrenal Glands: No adrenal nodules. Kidneys and Ureters: No hydronephrosis. No solid mass. No complex renal cystic lesion which requires follow up. Stomach and Bowel: Normal colonic caliber, without significant wall thickening. Large diffuse fecal load. Peritoneum: No abnormal intraperitoneal fluid. No free air. Ventral Wall: No significant ventral hernia. Abdominal Nodes: No retroperitoneal or mesenteric adenopathy by size criteria. Vessels: Aorta and inferior vena cava are normal in size. PELVIS: Pelvic Organs: Unremarkable. Bladder: No bladder wall thickening, accounting for underdistention. Pelvic Nodes: No enlarged lymph nodes. Miscellaneous: No inguinal hernias are seen. Bones: No aggressive osseous abnormality. Severe osteoporosis with chronic compressions of T11 through L5. IMPRESSION: 1. No acute abdominal process. 2. Large diffuse fecal load. 3. Severe osteoporosis with numerous chronic compressions. Dictated by: Emanuel Preston M.D. on 05/20/2024 at 15:59 Approved by: Emanuel Preston M.D. on 05/20/2024 at 16:09 CT scan - head: Radiologist's Impression: [place] [address] CT Scan Report Signed Patient: Candelaria Weaver MR#: [id number] : 1945 Acct:[id number] Age/Sex: 78 / F Date of Service: 05/20/24 Loc: ED Accession Number: [id number] Procedure: CT head/brain wo con Ordering Provider: Roberto Hinojosa MD PROCEDURE: CT HEAD/BRAIN WO CON INDICATIONS: nausea/vomiting, sp TPA last week. TECHNIQUE: Noncontrast 4.5 mm thick angled axial sections acquired from the foramen magnum to the vertex, with coronal and sagittal reformats. For radiation dose reduction, the following was used: automated exposure control, adjustment of mA and/or kV according to patient size. COMPARISON: [facility], CT, CT HEAD/BRAIN WO CON, 04/27/2024, 12:14. FINDINGS: Image quality: Diagnostic. CSF spaces: Basal cisterns are patent. No extra-axial fluid collections. The ventricles are symmetric in size and shape. Brain: No intracranial bleeds or masses. There is cerebral volume loss for age, with resultant ventricular and sulcal prominence. There are periventricular and deep white matter chronic small vessel ischemic changes. There is intracranial internal carotid artery atherosclerosis. Skull and face: Calvarium and visualized facial bones appear intact, without suspicious lesions. Prior right-sided mastoidectomy. Sinuses: Visualized sinuses and mastoids are clear. IMPRESSION: No acute intracranial pathology. Dictated by: Jeff Treviño M.D. on 05/20/2024 at 16:56 Approved by: Jeff Treviño M.D. on 05/20/2024 at 16:[address] [facility] Narrative Medical decision making narrative: Patient here with complaints of nausea and vomiting and decreased urine output for the past 24 hours. Patient contacted primary care Dr. Ascencio yesterday. Urinalysis was done and prescription antibiotic was called in. Patient complains of low back pain fullness in the lower abdomen with decreased urine output. No frequency urgency or dysuria. No fever chills. No new numbness tingling or weakness or speech changes. After history and exam CBC CMP urinalysis Zofran normal saline CT abdomen pelvis respiratory panel [facility] Medical records reviewed: Recent visit here for stroke/transfer Differential considered: Includes but not limited to UTI cystitis pyelonephritis bowel obstruction constipation Lab Test results independently reviewed as above. Pertinent findings: WBC 13.8 hemoglobin 12.4 sodium 127 which is baseline for patient potassium 4.2 bicarb 23 GFR greater than 60 BUN 11 creatinine 0.65 glucose 140 respiratory panel negative Urinalysis negative leukocytes negative nitrate negative ketone Imaging studies independently reviewed: CT abdomen pelvis large fecal load CT head no acute finding Consultations: None indicated Treatments: Zofran normal saline Re-evaluations: 4:50 p.m.. Patient resting comfortably. No nausea or vomiting. Reviewed with results. Does have large fecal load but she did have a bowel movement prior to arrival before EMS arrived to their home. This could cause the abdominal discomfort she was describing. There is no urinary retention however with a large fecal load may be pressing on the bladder. At this time urinalysis is reassuring. Leukocytosis likely demargination from the vomiting. She never had urinary frequency urgency or dysuria. However they will resume the Macrobid should she develop urinary symptoms. will provide oral laxatives to promote more bowel movements. Discussion: Appropriate for discharge home exam is reassuring. Return precautions reviewed. states they do have Zofran ODT at home. They will continue antibiotics. Return precautions reviewed. They desire discharge home Diagnosis: Acute vomiting Discharge Plan Departure Patient Disposition: Home Clinical Impression: Acute vomiting Instructions: DI for Vomiting -- Adult Activity Restrictions/Additional Instructions: Your exam and laboratory studies and imaging studies are reassuring. Please do use [id number] oral laxative to promote abdominal discomfort and vomiting. See family doctor next week for re-evaluation. You may discontinue the oral antibiotics at this time as they urine tests are reassuring however you may resume them if you develop urinary problems. Continue your home Zofran nausea medication. Return if worse if any questions or concerns Prescriptions: No Action losartan 100 mg tablet 100 mg PO QAM Qty: 90 2RF (DME) Disabled Parking See Rx Instructions .ROUTE .MEDSUPPLY Qty: 1 0RF Rx Instructions: Patient qualifies for disabled parking as per the attached form. atorvastatin 40 mg tablet 40 mg PO DAILY Qty: 90 3RF omeprazole 20 mg capsule,delayed release(DR/EC) 20 mg PO DAILY Qty: 90 3RF levothyroxine 75 mcg tablet 75 mcg PO DAILY Qty: 90 0RF gabapentin 100 mg capsule 100 mg PO TID Qty: 90 3RF amlodipine 10 mg tablet 10 mg PO DAILY Qty: 90 3RF levetiracetam 500 mg tablet 500 mg PO BID Qty: 180 3RF sodium chloride 1,000 mg tablet,soluble 1,000 mg PO BID aspirin 81 mg tablet,delayed release (DR/EC) 81 mg PO DAILY atenolol 50 mg Tablet 100 mg PO BEDTIME polyethylene glycol 3350 [Miralax] 17 gram/dose powder 17 g PO DAILY Qty: 510 0RF acetaminophen 325 mg Tablet 325 mg PO PRN MDD 4000 mg PRN (Reason: pain) cholecalciferol (vitamin D3) [Vitamin D3] 25 mcg (1,000 unit) capsule 1,000 unit PO DAILY Referrals: Lance Ascencio MD [Primary Care Provider] - Stand Alone Forms: Patient Portal/API
[2024-05-20] MEDS: SODIUM CHLORIDE 0.9% 1,000 ML 1000 ML IV (14:33)
[2024-05-20] MEDS: ONDANSETRON 4 MG/2 ML INJ IV (14:34)
[2024-05-20 14:42] LABS: Add Manual Diff / Slide Review NO; Basophils Absolute Auto 0 /uL (0-100); Basophils Percent Auto 0.1 % (0-2); Eosinophils Absolute Auto 0 /uL (0-450); Eosinophils Percent Auto 0.2 % (2-4); Hematocrit 37.1 % (36-46); Hemoglobin 12.4 g/dL (12.0-16.0); Lymphocytes Absolute Auto 200 /uL (1100-4500); Lymphocytes Percent Auto 1.5 % (25-40); Mean Corpuscular HGB Conc 33.3 % (30-36); Mean Corpuscular Hemoglobin 31.1 PG (26-34); Mean Corpuscular Volume 93.5 fL (80-100); Monocytes Absolute Auto 300 /uL (0-900); Monocytes Percent Auto 2.4 % (3-14); Neutrophils Absolute Auto 13200 /uL (1500-7000); Neutrophils Percent Auto 95.8 % (50-75); Platelet Count 200 X10^3/uL (150-400); Red Blood Cell Count 3.97 X10^6/uL (4.0-5.2); Red Cell Distribution Width 13.3 % (11.6-14.8); White Blood Cell Count 13.8 X10^3/uL (4.5-11.0)
[2024-05-20 14:52] LABS: Alanine Aminotransferase 21 IU/L (<35); Albumin 4.8 g/dL (3.5-5.0); Albumin Globulin Ratio 1.3 (1.0-2.8); Alkaline Phosphatase 179 U/L (38-126); Aspartate Aminotransferase 27 IU/L (14-36); BUN Creatinine Ratio 16.9 (6-22); Blood Urea Nitrogen 11 mg/dL (7-17); Calcium 9.6 mg/dL (8.4-10.2); Carbon Dioxide 23 mmol/L (22-32); Chloride 93 mmol/L (98-107); Estimated Glomerular Filt Rate > 60 mL/min (>60); Globulin 3.6 g/dL (1.7-4.1); Glucose 140 mg/dL (80-110); HEMOLYSIS < 15 (0-50); Potassium 4.2 mmol/L (3.4-5.1); Sodium 127 mmol/L (137-145); Total Protein 8.4 g/dL (6.3-8.2)
--- NOTE | 2024-05-20 15:39 | DI.CT.S_ITS ---
PROCEDURE: CT HEAD/BRAIN WO CON INDICATIONS: nausea/vomiting, sp TPA last week. TECHNIQUE: Noncontrast 4.5 mm thick angled axial sections acquired from the foramen magnum to the vertex, with coronal and sagittal reformats. For radiation dose reduction, the following was used: automated exposure control, adjustment of mA and/or kV according to patient size. COMPARISON: [facility], CT, CT HEAD/BRAIN WO CON, 04/27/2024, 12:14. FINDINGS: Image quality: Diagnostic. CSF spaces: Basal cisterns are patent. No extra-axial fluid collections. The ventricles are symmetric in size and shape. Brain: No intracranial bleeds or masses. There is cerebral volume loss for age, with resultant ventricular and sulcal prominence. There are periventricular and deep white matter chronic small vessel ischemic changes. There is intracranial internal carotid artery atherosclerosis. Skull and face: Calvarium and visualized facial bones appear intact, without suspicious lesions. Prior right-sided mastoidectomy. Sinuses: Visualized sinuses and mastoids are clear. IMPRESSION: No acute intracranial pathology. Dictated by: Jeff Treviño M.D. on 05/20/2024 at 16:56 Approved by: Jeff Treviño M.D. on 05/20/2024 at 16:58
[2024-05-20 15:40] LABS: Adenovirus Not Detected (Not Detect); B. parapertussis Not Detected (Not Detecte); Bordetella pertussis Not Detected (Not Detect); Chlamydophila pneumoniae Not Detected (Not Detect); Coronavirus 229E Not Detected (Not Detect); Coronavirus HKU1 Not Detected (Not Detect); Coronavirus NL 63 Not Detected (Not Detect); Coronavirus OC43 Not Detected (Not Detect); Human Metapneumovirus Not Detected (Not Detect); Human Rhinovirus/Enterovirus Not Detected (Not Detect); Influenza A Not Detected (Not Detect); Influenza B Not Detected (Not Detect); Mycoplasma pneumoniae Not Detected (Not Detect); Parainfluenza Virus 1 Not Detected (Not Detect); Parainfluenza Virus 2 Not Detected (Not Detect); Parainfluenza Virus 3 Not Detected (Not Detect); Parainfluenza Virus 4 Not Detected (Not Detect); Respiratory Syncytial Virus Not Detected (Not Detect); SARS- CoV-2 Not Detected (Not Detecte)
[2024-05-20 16:15] LABS: Appearance Urine UA CLEAR; Bilirubin Urine UA NEGATIVE (NEGATIVE); Color Urine UA YELLOW; Glucose Urine UA NEGATIVE (Negative); Ketones Urine UA NEGATIVE (NEGATIVE); Leukocyte Esterase Urine UA NEGATIVE (NEGATIVE); Nitrite Urine UA NEGATIVE (Negative); Occult Blood Urine UA NEGATIVE (Negative); Protein Urine UA 1+ (Negative); Specific Gravity Urine UA 1.015 (1.000-1.035); pH Urine UA 7.5 (4.5-8.0)
[2024-05-20 16:26] LABS: Bacteria Urine None Seen; Culture Indicated Urine Cult Not Indicated; RBC Urine None Seen (0-5/HPF); Squamous Epithelial Cell Urine None Seen (0-5/HPF); Urine Volume 10mL (spun); WBC Urine None Seen (0-5/HPF)
== END 2024-05-20 17:24 | disposition home or self-care (01) ==
PROVIDERS: Emergency Provider Emergency Medicine; PCP Internal Medicine
DX: R11.2 Nausea with vomiting, unspecified (principal); R10.9 Unspecified abdominal pain; M54.50 Low back pain, unspecified; Z11.52 Encounter for screening for COVID-19; Z86.73 Personal history of transient ischemic attack (TIA), and cerebral infarction without residual deficits
CPT/HCPCS: 36415; 51701; 51798; 70450; 74177; 80053; 81001; 85025; 87633; 96361; 96374; 99284; J2405; Q9967

== ENCOUNTER → 2024-06-10 07:34 | Outpatient (CLI) | payer MEDICARE, OTHER, SELFPAY ==
[2024-04-27 17:14] VITALS: BMI 25.8
[2024-06-10 08:39] LABS: BUN Creatinine Ratio 20.6 (6-22); Blood Urea Nitrogen 14 mg/dL (7-17); Carbon Dioxide 21 mmol/L (22-32); Chloride 101 mmol/L (98-107); Estimated Glomerular Filt Rate > 60 mL/min (>60); Glucose 111 mg/dL (80-110); HEMOLYSIS < 15 (0-50); Potassium 4.5 mmol/L (3.4-5.1); Sodium 134 mmol/L (137-145)
== END ==
PROVIDERS: PCP Internal Medicine; Referring Provider Internal Medicine; Visit Provider Internal Medicine
DX: E87.1 Hypo-osmolality and hyponatremia (principal)
CPT/HCPCS: 36415; 80048

== ENCOUNTER → 2024-07-14 08:10 | Outpatient (CLI) | payer MEDICARE, OTHER, SELFPAY ==
[2024-04-27 17:14] VITALS: BMI 25.8
[2024-07-14 09:36] LABS: BUN Creatinine Ratio 20.3 (6-22); Blood Urea Nitrogen 16 mg/dL (7-17); Calcium 9.7 mg/dL (8.4-10.2); Carbon Dioxide 25 mmol/L (22-32); Chloride 98 mmol/L (98-107); Estimated Glomerular Filt Rate > 60 mL/min (>60); Glucose 107 mg/dL (80-110); HEMOLYSIS < 15 (0-50); Potassium 4.5 mmol/L (3.4-5.1); Sodium 132 mmol/L (137-145)
== END ==
PROVIDERS: PCP Internal Medicine; Referring Provider Internal Medicine; Visit Provider Internal Medicine
DX: E87.1 Hypo-osmolality and hyponatremia (principal)
CPT/HCPCS: 36415; 80048

== ENCOUNTER → 2024-09-08 08:03 | Outpatient (CLI) | payer MEDICARE, OTHER, SELFPAY ==
[2024-04-27 17:14] VITALS: BMI 25.8
[2024-09-08 09:29] LABS: Alanine Aminotransferase 18 IU/L (<35); Albumin 4.9 g/dL (3.5-5.0); Albumin Globulin Ratio 1.4 (1.0-2.8); Alkaline Phosphatase 142 U/L (38-126); Aspartate Aminotransferase 32 IU/L (14-36); BUN Creatinine Ratio 18.4 (6-22); Bilirubin Total 0.7 mg/dL (0.2-1.3); Blood Urea Nitrogen 14 mg/dL (7-17); Calcium 9.7 mg/dL (8.4-10.2); Carbon Dioxide 21 mmol/L (22-32); Chloride 100 mmol/L (98-107); Estimated Glomerular Filt Rate > 60 mL/min (>60); Globulin 3.4 g/dL (1.7-4.1); Glucose 111 mg/dL (80-110); HEMOLYSIS 28 (0-50); Potassium 4.5 mmol/L (3.4-5.1); Sodium 134 mmol/L (137-145); Total Protein 8.3 g/dL (6.3-8.2)
[2024-09-08 09:35] LABS: Hemoglobin A1C% w Est Avg Glu 5.7 % (4.0-6.0)
[2024-09-08 09:54] LABS: Free T4, Direct Thyroxine 1.39 ng/dL (0.78-2.19)
[2024-09-08 10:08] LABS: Thyroid Stimulating Hormone 1.75 uIU/mL (0.47-4.68)
== END ==
PROVIDERS: PCP Internal Medicine; Referring Provider Internal Medicine; Visit Provider Internal Medicine
DX: E11.9 Type 2 diabetes mellitus without complications (principal); E87.1 Hypo-osmolality and hyponatremia; G40.909 Epilepsy, unspecified, not intractable, without status epilepticus; E03.9 Hypothyroidism, unspecified; I10 Essential (primary) hypertension
CPT/HCPCS: 36415; 80053; 83036; 84439; 84443

== ENCOUNTER → 2024-10-03 13:32 | Outpatient (CLI) | payer MEDICARE, OTHER, SELFPAY ==
[2024-04-27 17:14] VITALS: BMI 25.8
[2024-10-03 14:43] LABS: BUN Creatinine Ratio 19.6 (6-22); Blood Urea Nitrogen 18 mg/dL (7-17); Calcium 9.8 mg/dL (8.4-10.2); Carbon Dioxide 20 mmol/L (22-32); Chloride 100 mmol/L (98-107); Estimated Glomerular Filt Rate > 60 mL/min (>60); Glucose 131 mg/dL (80-110); HEMOLYSIS < 15 (0-50); Potassium 4.8 mmol/L (3.4-5.1); Sodium 134 mmol/L (137-145)
== END ==
PROVIDERS: PCP Internal Medicine; Referring Provider Internal Medicine; Visit Provider Internal Medicine
DX: E87.1 Hypo-osmolality and hyponatremia (principal)
CPT/HCPCS: 36415; 80048

== ENCOUNTER → 2024-12-09 08:23 | Outpatient (CLI) | payer MEDICARE, OTHER, SELFPAY ==
[2024-04-27 17:14] VITALS: BMI 25.8
[2024-12-09 09:10] LABS: BUN Creatinine Ratio 29.4 (6-22); Blood Urea Nitrogen 20 mg/dL (7-17); Calcium 9.9 mg/dL (8.4-10.2); Carbon Dioxide 21 mmol/L (22-32); Chloride 100 mmol/L (98-107); Estimated Glomerular Filt Rate > 60 mL/min (>60); Glucose 112 mg/dL (70-99); HEMOLYSIS 16 (0-50); Potassium 4.8 mmol/L (3.4-5.1); Sodium 133 mmol/L (137-145)
== END ==
PROVIDERS: PCP Internal Medicine; Referring Provider Internal Medicine; Visit Provider Internal Medicine
DX: I10 Essential (primary) hypertension (principal)
CPT/HCPCS: 36415; 80048

== ENCOUNTER 2025-07-18 08:17 | Emergency (ER) | payer MEDICARE, OTHER, SELFPAY ==
[2024-12-15 14:35] VITALS: BMI 25.8
[2025-07-18] VITALS (12 sets, daily range): BP systolic 134–189; BP diastolic 70–99; PULSE 62–85; RESP 14–22; TEMP 36.7; O2SAT 92–98; BMI 25.8
--- OUTSIDE RECORDS SUMMARY | 2025-07-18 08:19 | XMS_ITS | Clinical Summary ---
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 Name Role Phone Pcp, None Selected Primary Care Provider Unavail able Allergies Active Allergy Reactions Criticality Noted Date Comments Bacitracin 07/16/2009 Benzalkonium Chloride Other (see comments) 09/25 Skin blisters Cephalexin 04/27/2019 Other reaction(s): Unknown Codeine 04/22/2017 Other reaction(s): GI problems Morphine Other reaction(s): GI Upset Neomycin Sulfate 07/16/2009 Oxycodone 04/22/2017 Other reaction(s): Vomiting Polymyxin B Sulfate 07/16/2009 Tramadol Hcl 04/12/2019 Other reaction(s): Severe GI upset Medications atenolol (TENORMIN) 50 mg tablet TK 1 T PO QD FOR BP 3 06/09/20 17 Active levothyroxine (SYNTHROID, LEVOTHROID) 75 mcg tablet TK ONE T PO ONCE D FOR THYROID REPLACEMENT 0 06/13/20 17 Active losartan (COZAAR) 100 mg tablet TK 1 T PO QD FOR BP 3 04/07/20 17 Active acetaminophen (TYLENOL) 325 mg tablet take 1 tablet by oral route every 4 hours as needed as needed Active cholecalciferol, vitamin D3, 25 mcg (1,000 unit) capsule Take 1,000 Units by mouth daily Active omeprazole (PriLOSEC) 20 mg capsule 06/26/20 20 Active silver sulfadiazine (SILVADENE) 1 % cream APPLY 1.5 MM THICKNESS TO THE AFFECTED AREA TWICE DAILY 07/10/20 20 Active atorvastatin (LIPITOR) 40 mg tablet 08/21/19 21 Active amLODIPine (NORVASC) 10 mg tablet Take 1 tablet (10 mg total) by mouth once daily 10/10/19 21 Active meclizine (ANTIVERT) 25 mg tablet TAKE 1 TABLET BY MOUTH THREE TIMES DAILY NEEDED FOR DIZZINESS 09/09/19 24 Active ondansetron ODT (ZOFRAN-ODT) 4 mg disintegrating tablet DISSOLVE 1 TABLET ON THE TONGUE EVERY 8 HOURS NEEDED FOR NAUSEA OR VOMITING 09/09/19 24 Active levETIRAcetam (KEPPRA) 500 mg tablet Take 1 tablet (500 mg total) by mouth 2 (two) times a day Active Active Problems Problem Noted Date Diagnosed Date Uncomplicated degenerative myopia of both eyes 0 01/16/2020 Astigmatism of both eyes with presbyopia 020 Dyspepsia 07/03/2017 Bilateral pseudophakia 01/07/2017 Diabetes mellitus, type 2 07/27/2007 Encounters Date Type Department Care Team Description 05/24/2025 7:30 AM PDT Office Visit [facility] [address] [phone] Feliz Melissa MD Lesion of external ear, right (Primary Dx); Mixed conductive and sensorineural hearing loss of right ear with restricted hearing of left ear; Impacted cerumen of right ear 05/24/2025 Telephone [facility] [place] [place] [phone] Feliz Melissa MD [facility] 05/02/2025 Telephone [facility] [place] [address] [place] [address] [place] [phone] Feliz Melissa MD Appointment from Last 3 Months Immunizations Immunization Administration Dates Next Due FLU High Dose 65+ Trivalent, PF (FLUZONE) 2019,04/09/2018 FLU PF 6+Mos Quad (Fluzone, FluLaval, Fluarix) 04/08/2017,05/11/2014 FLU PF 6+Mos Trivalent 0.5ML (Fluzone, FluLaval, Fluarix) 05/12/2016,04/20/2015,05/17/2009 H1N1 All Forms 06/27/2009 Influenza, Seasonal, Injectable 05/17/2009 Live Zoster (Zostavax) 05/01/2008 Pneumococcal Conjugate PCV13 ([id number]) 016 Pneumococcal Polysaccharide PPV23 ([id number]) 07/16/2005 Tdap (Boostrix,Adacel) 11/19/2020,07/27/2010 Family History Medical History Relation Comments Diabetes Father Heart failure Father Other Father HBP, Diverticula r Disease Cataracts Mother Heart failure Mother Osteoporosis Mother Relation Status Comments Father Mother Sister Alive Social History Tobacco Use Types Packs/Day Years Used Date Smoking Tobacco: Never Smokeless Tobacco: Never Tobacco Cessation:Counseling Given: Not Answered Alcohol Use Standard Drinks/Week Comments No 0 (1 standard drink = 0.6 oz pur e alcohol) Comments Unknown Sex and Gender Information Value Date Recorded Sex Assigned at Female 05/20/2023 9:08 PM PDT Legal Sex Female 4:33 PM PDT Gender Identity Not on file Sexual Orientation Not on file Last Filed Vital Signs Vital Sign Reading Time Taken Comments Blood Pressure 196/84 05/24/2025 7:39 AM PDT Pulse 73 05/24/2025 7:39 AM PDT Temperature 36.4 C (97.6 F) 06/17/2021 10:17 AM PST Respiratory Rate - - Oxygen Saturation 97% 05/24/2025 7:39 AM PDT Inhaled Oxygen Concentration - - Weight 77.1 kg (169 lb 15.6 oz) 05/24/2025 7:39 AM PDT Height 172.7 cm (5' 7.99) 05/24/2025 7:39 AM PD T Body Mass Index 25.85 05/24/2025 7:39 AM PDT Plan of Treatment Health Maintenance Due Date Last Done Comments Medicare Annual Wellness (AWV) 1945 Diabetes Urine Protein Screening 1957 Depression Screening (PHQ-2) 1957 Zoster Vaccines (2 of 3) 06/26/2008 05/01/2008 Fall Risk Screening 2012 [facility] Pneumococcal Adult 50+ (3 of 3 - PCV20 or PCV21) 11/21/2020 11/22/2015, 07/16/2005 Diabetic Eye Exam 12/03/2021 12/03/2020, , 01/16/2020, Additional history exists RSV Patients Over 60 years OR qualifying ( Patients) (1 - 1-dose 75+ series) 2022 Diabetic Foot Exam 05/21/2024 05/21/2023, 03/26/2023 Hemoglobin A1C 11/12/2024 05/14/2024, 04/26, 05/14/2024, Additional history exists COVID-19 Vaccine (3 - season) 2025 04/08/2021, 03/09/2021 Influenza Vaccine (#1) 2025 , 06/15/2023, 06/13/2022, Additional history exists DTaP,Tdap,and Td Vaccines (3 - Td or Tdap) 11/19/2030 11/19/2020, 07/27/2010 Varicella Vaccines Discontinued 05/01/2008 Breast Cancer Screening Discontinued 06/24/2010 HM Pneumococcal Combined Age 0-49 Discontinued 11/22/2015, 07/16/2005 Colorectal Cancer Screening (Colonoscopy) Discontinued 12/03/2016 Colorectal Cancer Screening Combined Discontinued Colorectal Cancer Screening (FOBT) Discontinued Colorectal Cancer Screening (Fecal DNA) Discontinued HPV Vaccines Aged Out No longer eligi ble based on patient's age to complete this topic Hepatitis A Vaccines Aged Out No long er eligible based on patient's age to complete this topic Hepatitis B Vaccines Aged Out No long er eligible based on patient's age to complete this topic IPV Vaccines Aged Out No longer eligi ble based on patient's age to complete this topic MMR Vaccines Aged Out No longer eligi ble based on patient's age to complete this topic Procedures Procedure Name Priority Date/Time Associated Diagnosis Comments DIABETES EYE EXAM Routine 12/03/2020 COLONOSCOPY Routine 12/03/2016 MAMMOGRAPHY Routine 06/24/2010 from Last 3 Months or Most Recently Relevant to Health Maintenance Results * External/Historical Diabetes Eye Exam (12/03/2020) External/Hist orical Diabetes Eye Exam Proliance Retina us Historical Provider HEALTH MAINTENANCE Final Result * Colonoscopy (12/03/2016) External/Histor ical Colonoscopy Colonoscopy Historical Provider HEALTH MAINTENANCE Final Result * Mammography (06/24/2010) Mammogram Mammogram Historical Provider HEALTH MAINTENANCE Final Result from Last 3 Months or Most Recently Relevant to Health Maintenance [place] [address] [place] [address] MEDICARE PART A AND B [facility] Care Teams 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
--- NOTE | 2025-07-18 08:36 | EKG_ITS ---
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
--- NOTE | 2025-07-18 08:36 | DI.CT.S_ITS ---
PROCEDURE: CT HEAD/BRAIN WO CON INDICATIONS: ? difficulty with speech, hx of bleed vs cva ? (pt unsure) TECHNIQUE: Noncontrast 4.5 mm thick angled axial sections acquired from the foramen magnum to the vertex, with coronal and sagittal reformats. For radiation dose reduction, the following was used: automated exposure control, adjustment of mA and/or kV according to patient size. COMPARISON: [facility], CT, CT HEAD/BRAIN WO CON, 05/20/2024, 16:17. [facility], CT, CT HEAD/BRAIN WO CON, 04/27/2024, 12:14. FINDINGS: Image quality: Diagnostic. CSF spaces: Basal cisterns are patent. No extra-axial fluid collections. The ventricles are symmetric in size and shape. Brain: No intracranial bleeds or mass effect. There is moderate cerebral volume loss, with resultant ventricular and sulcal prominence. There are moderate periventricular and deep white matter chronic small vessel ischemic changes. There is intracranial internal carotid artery atherosclerosis. Senescent basal ganglial calcifications are again noted bilaterally. Skull and face: Calvarium and visualized facial bones appear intact, without suspicious lesions. Sinuses: Visualized sinuses and mastoids are clear. IMPRESSION: 1. CT head without acute intracranial abnormalities or acute calvarial fractures. 2. Age-related senescent changes and sequela of chronic small vessel ischemic disease. Dictated by: Jonathon Singh M.D. on 07/18/2025 at 9:19 Approved by: Jonathon Singh M.D. on 07/18/2025 at 9:20
--- NOTE | 2025-07-18 08:37 | DI.CT.S_ITS ---
PROCEDURE: CT ANGIO HEAD AND NECK INDICATIONS: ? difficulty with speech, hx of bleed vs cva ? (pt unsure) TECHNIQUE: After the administration of intravenous contrast, 1 mm thick sections acquired from the aortic arch through the Andreafski of Anthony. 3-dimensional aejekwy-sroqvgnpq-pwuapvenzp (MIP) and/or volume rendering reformats were acquired of the central intracranial vasculature and neck separately. For radiation dose reduction, the following was used: automated exposure control, adjustment of mA and/or kV according to patient size. COMPARISON: [facility], CT, CT ANGIO HEAD AND NECK, 05/13/2024, 18:18. [facility], CT, CT ANGIO HEAD AND NECK, 09/09/2023, 11:01. FINDINGS: Image quality: Diagnostic. BRAIN: CSF spaces: Ventricles are normal in size and shape. Basal cisterns are patent. No extra-axial fluid collections. Brain: No midline shift. No intracranial masses. No suspicious enhancement. Bañuelos-white matter interface appears intact. Stable age related senescent changes and sequela of chronic small vessel ischemic disease. Skull and face: Calvarium and facial bones appear intact, without suspicious lesions. Orbits appear normal. Sinuses: Sinuses and mastoids are clear. HEAD CT ANGIOGRAPHY: Anterior circulation: There are atherosclerotic calcifications of the intracranial segments of the internal carotid arteries. Intracranial internal carotid arteries appear patent without high-grade stenosis. There is flow/opacification within the paired anterior cerebral arteries. There is opacification within the middle cerebral arteries. The anterior communicating artery is seen. No aneurysms are seen. No occlusion. Stable appearance of prominent left A1 segment and more diminutive left A1 segment compatible with normal variant anatomy. Posterior circulation: Atherosclerotic calcifications. Stable appearance of approximately 50% stenosis in the bilateral V4 segments of the vertebral arteries. Visualized portions of the vertebral arteries are patent and join to form a normal appearing basilar artery. No evidence for high-grade stenosis. No occlusions. There is opacification of the posterior cerebral arteries. No aneurysms are seen. NECK CT ANGIOGRAPHY: Carotid system: The great vessels demonstrate a conventional anatomy as they arise from the aortic arch. Atherosclerotic calcifications of the aortic arch are present. The origins of the common carotid arteries appear patent. The common carotid arteries appear patent throughout their visualized courses without high grade stenosis. Atherosclerotic calcifications of the bilateral carotid bulbs. The bifurcation regions are both patent without high grade stenosis. The internal carotid arteries demonstrate normal calibers and courses. Posterior circulation: Atherosclerosis. The origins of the vertebral arteries both appear patent without hemodynamically significant stenosis. The more superior extracranial portions of both vertebral arteries also demonstrate normal courses and calibers. They join to form a normal appearing basilar artery. Soft tissues: Visualized neck soft tissues demonstrate no suspicious abnormalities. No adenopathy. Biapical scarring. Bones: No suspicious bony lesions. Visualized cervical spine appears normally aligned. No acute compression fractures of the vertebral bodies. Moderate multilevel cervical spondylosis. IMPRESSION: Redemonstration of approximately 50% stenosis involving the bilateral V4 segments of the vertebral arteries. No other significant intracranial arterial abnormality is seen. No significant abnormality is seen within the arteries of the neck. Any quantitative measurements of stenosis were performed using NASCET criteria. If there is persistent or high clinical suspicion for acute cerebrovascular ischemia/stroke, more sensitive evaluation with brain MRI can be considered. Dictated by: Jonathon Singh M.D. on 07/18/2025 at 9:24 Approved by: Jonathon Singh M.D. on 07/18/2025 at 9:33
--- NOTE | 2025-07-18 08:38 | ED.GENADULT ---
HPI - General Adult General Chief complaint: Neuro Symptoms/Deficit Stated complaint: confusion, chest px Time Seen by Provider: 07/18/25 08:18 Source: patient, family (spouse), RN notes reviewed and old records reviewed Mode of arrival: Ambulatory Limitations: no limitations History of Present Illness HPI narrative: 80-year-old female history of CVA, seizure disorder, hyponatremia, hypertension, dyslipidemia, hypothyroidism on aspirin 81 mg daily. Patient presents stating that she feels like she has a little bit confused. She indicates she feels like she is sometimes having some difficulty with her speech. Her has been has not noticed any change today. She states last known normal was 9:00 a.m. last night when she went to sleep she noticed changes upon awakening but states it seems to sort of come and go. She denies fevers, she has has a little bit of mild headache. She denies any cold cough or congestion symptoms. She has had some chest pain on and off but none today. She denies any shortness of breath. She denies any nausea or vomiting. She denies any GI symptoms. No changes to bowel movements. She notes some urinary frequency but no dysuria or sense of urgency. She states no numbness, tingling or weakness of her extremities, no difficulty with movement. Patient has some difficulty with a history notes that she had an event with a fall proximally a year ago was seen at [place] ED, transferred to [facility] and started on Keppra. Has been states he has never seen any for stroke activity but they describe it as difficulty with speech. Patient states this does not seem to be the same thing. She has had prior orthopedic surgery on her knee and back surgery. No tobacco, alcohol or recreational drugs. Dr. Ascencio is her primary care physician. She states he has been in process of setting her up to follow up with Neurology. Home medications include levothyroxine, omeprazole, aspirin 81 mg, levetiracetam, atorvastatin, losartan, amlodipine and atenolol. Related Data Home Medications ?Medication ?Instructions ?Recorded ?Confirmed acetaminophen 325 mg tablet 325 mg PO PRN PRN pain 05/31/19 03/17/25 cholecalciferol (vitamin D3) 25 1,000 unit PO DAILY 10/23/20 03/17/25 mcg (1,000 unit) capsule (Vitamin D3) aspirin 81 mg tablet,delayed 81 mg PO DAILY 05/26/24 03/17/25 release Previous Rx's ?Medication ?Instructions ?Recorded Disabled Parking #1 ea 10/26/23 sodium chloride 1,000 mg soluble 1,000 mg PO BID #180 tabs 06/13/24 tablet atorvastatin 40 mg tablet 40 mg PO DAILY #90 tabs 01/16/25 omeprazole 20 mg capsule,delayed 20 mg PO DAILY #90 caps 01/16/25 release levetiracetam 500 mg tablet 500 mg PO BID #180 tabs 04/28/25 amlodipine 10 mg tablet 10 mg PO DAILY #90 tabs 07/14/25 atenolol 50 mg tablet 50 mg PO BID #180 tabs 07/14/25 levothyroxine 75 mcg tablet 75 mcg PO DAILY #90 tabs 07/14/25 losartan 100 mg tablet 100 mg PO QAM #90 tabs 07/14/25 clopidogrel 75 mg tablet (Plavix) 75 mg PO DAILY #21 tabs 07/18/25 Allergies Allergy/AdvReac Type Severity Reaction Status Date / Time bacitracin (From NEOSPORIN Allergy Unknown Verified 03/17/25 09:09 ([id number])) codeine (CODEINE) Allergy Unknown Verified 03/17/25 09:09 morphine (MORPHINE) Allergy Unknown Verified 03/17/25 09:09 neomycin (From NEOSPORIN Allergy Unknown Verified 03/17/25 09:09 ([id number])) polymyxin B (From NEOSPORIN Allergy Unknown Verified 03/17/25 09:09 ([id number])) nitrofurantoin AdvReac Severe nausea/vomi Verified 03/17/25 09:09 ting tramadol AdvReac Severe GI Upset Verified 03/17/25 09:09 cephalexin AdvReac Intermediate Shaky/Nervo Verified 03/17/25 09:09 us Review of Systems Review of Systems ROS Unobtainable: All systems reviewed & are unremarkable except as noted in HPI and below Patient History Medical History Seizure disorder Acute CVA (cerebrovascular accident) Hyponatremia Pelvic fracture SARS-CoV-2 positive Acute hyponatremia History of adenomatous polyp of colon Hemorrhoids, internal Fractures (~2018) Mumps Measles Chicken pox Tinnitus (~2018) Hearing loss Cataracts, bilateral (~1999) GERD (gastroesophageal reflux disease) (~2006) Pulmonary embolism (~2010) Osteoporosis (~2018) Type 2 diabetes mellitus Essential hypertension (~2008) Mixed hyperlipidemia Acquired hypothyroidism Surgical History Anesthesia Status post surgical manipulation of knee joint (~2011) Compartment syndrome (~2011) Broken leg (~2010) History of back surgery (~2000) Family History Father Stroke Mother History of heart disease Social History marital status: household members: spouse substance use type: does not use Smoking Status: Unknown if ever smoked alcohol intake frequency: 0-2 drinks per day Exam Narrative Exam Narrative: GEN: well nourished, well appearing female, alert and oriented x 3, patient appears to be in mild distress. HEENT: Atraumatic, pupils are equal round reactive to light, extraocular movements are intact, nares are clear, there is no conjunctival pallor. Throat is clear without any exudates, erythema, tonsillar enlargement or uvular deviation, no facial droop. HEART: Regular rate and rhythm without murmur, clicks, rubs. Pulses are equal in upper and lower extremities LUNGS:Lungs clear to auscultation, no wheezes, rales, crackles, chest moves symmetrically ABD:bowel sounds normal, soft, non-tender, no guarding, rebound, rigidity, no masses noted, no hepatosplenomegaly :No CVA tenderness MSCL: Non-tender, no muscle atrophy, muscles strength 5/5 upper and lower extremities, full range of motion, patient ambulates with a cane at baseline but ambulatory without issue NEURO:CN 2-12 intact, sensation normal, reflexes 2/4 upper and lower extremities. finger nose finger test normal, heel devlin test normal, no dysarthria or aphasia Initial Vital Signs Initial Vital Signs: Vital Signs Temperature 98.0 F 07/18/25 08:18 Pulse Rate 85 07/18/25 08:18 Respiratory Rate 14 07/18/25 08:18 Blood Pressure 134/99 H 07/18/25 08:18 Pulse Oximetry 96 07/18/25 08:18 Oxygen Delivery Method Room Air 07/18/25 08:18 Scores NIH Stroke Scale Level of Conciousness: Alert, keenly responsive Ask month/age: Answers both questions correctly. Open/close eyes, close hand: Performs both tasks correctly Best gaze horizontal: Normal Visual mayorga: No visual loss Facial palsy: Normal symetrical movement Left arm drift: No drift for full 10 sec Right arm drift: No drift for full 10 sec Left leg drift: No drift for full 5 sec Right leg drift: No drift for full 5 sec Limb ataxia: Absent Sensory on face/arms/legs: Normal, no sensory loss Best language: No aphasia, normal Dysarthria: Normal Extinction or inattention: No abnormality Total NIH Stroke scale score: 0 Course Orders Ordered: Discontinued Medications Clopidogrel Bisulfate (Clopidogrel 75 Mg Tablet) 75 mg PO NOW ONE Stop: 07/18/25 11:27 Last Admin: 07/18/25 11:35 Dose: 75 mg Documented By: GUILLERMO Vital Signs Vital signs: Vital Signs - 8 hr 07/18/25 08:18 07/18/25 08:21 07/18/25 08:21 Temperature 98.0 F Pulse Rate 85 85 Respiratory Rate 14 Blood Pressure 134/99 H 134/99 H Pulse Oximetry 96 93 Oxygen Delivery Method Room Air 07/18/25 08:30 07/18/25 08:31 07/18/25 08:31 Temperature Pulse Rate 68 71 Respiratory Rate 16 22 Blood Pressure 189/88 H Pulse Oximetry 98 97 Oxygen Delivery Method 07/18/25 09:19 07/18/25 09:21 07/18/25 09:21 Temperature Pulse Rate 68 64 Respiratory Rate 21 20 Blood Pressure 153/72 H Pulse Oximetry 92 98 Oxygen Delivery Method 07/18/25 09:30 07/18/25 09:30 07/18/25 10:00 Temperature Pulse Rate 62 62 Respiratory Rate 17 15 Blood Pressure 153/72 H Pulse Oximetry 96 94 Oxygen Delivery Method 07/18/25 10:00 Temperature Pulse Rate Respiratory Rate Blood Pressure 156/71 H Pulse Oximetry Oxygen Delivery Method Medical Decision Making Lab Data 07/18/25 08:28 07/18/25 08:28 Labs: Lab Results 07/18/25 07/18/25 07/18/25 Range/Units 08:28 08:41 09:00 WBC 11.1 H (4.5-11.0) X10^3/uL RBC 4.14 (4.0-5.2) X10^6/uL Hgb 12.7 (12.0-16.0) g/dL Hct 37.9 (36-46) % MCV 91.5 (80-100) fL MCH 30.7 (26-34) PG MCHC 33.6 (30-36) % RDW 12.9 (11.6-14.8) % Plt Count 303 (150-400) X10^3/uL Neut % (Auto) 73.9 (50-75) % Lymph % (Auto) 16.3 L (25-40) % [place] % (Auto) 7.1 (3-14) % Eos % (Auto) 1.6 L (2-4) % Baso % (Auto) 1.1 (0-2) % Neut # (Auto) 8200 H (4560-3865) /uL Lymph # (Auto) 1800 (5936-5267) /uL [place] # (Auto) 800 (0-900) /uL Eos # (Auto) 200 (0-450) /uL Baso # (Auto) 100 (0-100) /uL PT 11.4 (9.4-12.5) SECONDS INR 1.0 (0.9-1.3) APTT 27 (25.1-36.5) SECONDS Sodium 134 L (137-145) mmol/L Potassium 4.4 (3.4-5.1) mmol/L Chloride 103 (98-107) mmol/L Carbon Dioxide 19 L (22-32) mmol/L BUN 20 H (7-17) mg/dL Creatinine 0.79 (0.52-1.04) mg/dL Estimated GFR > 60 (>60) mL/min BUN/Creatinine Ratio 25.3 H (6-22) Glucose 143 H (70-99) mg/dL POC Whole Bld Glucose 132 H (70-99) mg/dL Calcium 9.7 (8.4-10.2) mg/dL Total Bilirubin 0.7 (0.2-1.3) mg/dL AST 32 (14-36) IU/L ALT 16 (<35) IU/L Alkaline Phosphatase 149 H (38-126) U/L Total Creatine Kinase 34 (30-135) U/L Troponin I < 0.012 (0.01-0.034) ng/mL Total Protein 9.1 H (6.3-8.2) g/dL Albumin 5.0 (3.5-5.0) g/dL Globulin 4.1 (1.7-4.1) g/dL Albumin/Globulin Ratio 1.2 (1.0-2.8) Urine Color Yellow Urine Appearance Clear Urine pH 6.5 (4.5-8.0) Ur Specific Junior 1.010 (1.000-1.035) Urine Protein Trace H (Negative) Urine Glucose (UA) Negative (Negative) g/dL Urine Ketones Negative (NEGATIVE) Urine Occult Blood Negative (Negative) Urine Nitrate Negative (Negative) Urine Bilirubin Negative (NEGATIVE) Urine Urobilinogen 0.2 (0.2) E.U./dL Ur Leukocyte Esterase Trace H (NEGATIVE) Urine RBC 1-5/hpf (0-5/HPF) Urine WBC 1-5/hpf (0-5/HPF) Ur Squamous Epith Cells 1-5 /hpf (0-5/HPF) Urine Bacteria Occasional (0-1) (None) Ur Culture Indicated? Cult not indicated Vol Urine Centrifuged 10ml (spun) Ethyl Alcohol < 10 (<10) mg/dL Point of Care Testing Glucose POC 132 Point of care testing: Point of Care Testing Glucose POC 132 MDM Narrative Medical decision making narrative: EKG sinus rhythm with a first-degree AV block, left axis deviation, left bundle-branch block with a rate of 64 IN 218 QRS of 160 QTC of 464. EKG from 05/13/2024 shows sinus rhythm with a first-degree AV block and left bundle-branch block appears similar to today's. Labs white count 11.1 hemoglobin of 12.7 platelets are 303, coags are negative, sodium is 134 CO2 is 19 consistent with priors potassium chloride are normal range BUN is 20 creatinine is 0.79 glucose 143 LFTs are normal, ETOH is negative. Urine shows trace protein, trace leuks 1-5 RBCs 1-5 white cells 1-[address] Head [address] without acute intracranial abnormality or acute calvarial fractures. CT head and neck angio, redemonstration proximally 50% stenosis involving bilateral pupils segments of the vertebral arteries no other significant intracranial arterial abnormality. No significant abnormality seen with the arteries neck. 80-year-old female presents with complaint of what she feels like some difficulty with speech, NIH is 0, last known normal was 9:00 p.m. last night she is outside the window for TNK that has not a candidate based on her NIH. Her has been does not appreciate any speech changes he states it seems normal. She has a reportedly has a history of seizures after prior stroke in 2023. No seizure activity tonic-clonic, focal or otherwise appreciated by . Patient also notes some urinary frequency and has had hyponatremia in the past. Spoke with Dr. Ascencio patient's primary physician he is well aware of patient. Discussed workup today is negative discuss possibly MR patient repair of hers to return home rather than stay in the hospital. Spoke with Dr. Ascencio I will go ahead and cover her with Plavix started at 75 mg for 21 days. He will has a office reach out to see if they can see her this Thursday. Discussed with patient and family they are comfortable with the plan. Discussed return precautions. All questions answered. Discharge Plan Departure Patient Disposition: Home Clinical Impression: Difficulty with speech Activity Restrictions/Additional Instructions: I spoke with Dr. Ascencio today, he would like to see this week possibly Thursday. The office should be reaching out to if you do not hear from them by this afternoon please call the office to set up an appointment. After discussion with Dr. Ascencio he would like to add a medication called Plavix or clopidogrel, 75 mg once daily for 21 days. This is a medication that is antiplatelet medication similar to aspirin you we will continue to take your aspirin with this medication. Prescription sent to [facility] in [place]. Please return if you develop any new or worsening symptoms, any headaches, you changes to speech, chest pain or shortness of breath, nausea or vomiting, any difficulty with movement, numbness tingling or weakness or other new or concerning changes. Prescriptions: New clopidogrel [Plavix] 75 mg tablet 75 mg PO DAILY Qty: 21 0RF No Action (DME) Disabled Parking See Rx Instructions .ROUTE .MEDSUPPLY Qty: 1 0RF Rx Instructions: Patient qualifies for disabled parking as per the attached form. omeprazole 20 mg capsule,delayed release(DR/EC) 20 mg PO DAILY Qty: 90 3RF atorvastatin 40 mg tablet 40 mg PO DAILY Qty: 90 3RF levetiracetam 500 mg tablet 500 mg PO BID Qty: 180 3RF levothyroxine 75 mcg tablet 75 mcg PO DAILY Qty: 90 0RF losartan 100 mg tablet 100 mg PO QAM Qty: 90 0RF atenolol 50 mg tablet 50 mg PO BID Qty: 180 0RF amlodipine 10 mg tablet 10 mg PO DAILY Qty: 90 0RF sodium chloride 1,000 mg tablet,soluble 1,000 mg PO BID Qty: 180 3RF aspirin 81 mg tablet,delayed release (DR/EC) 81 mg PO DAILY acetaminophen 325 mg Tablet 325 mg PO PRN MDD 4000 mg PRN (Reason: pain) cholecalciferol (vitamin D3) [Vitamin D3] 25 mcg (1,000 unit) capsule 1,000 unit PO DAILY Referrals: Lance Ascencio MD [Primary Care Provider, Internal Medicine] Stand Alone Forms: Patient Portal/API
[2025-07-18 08:51] LABS: INR 1.0 (0.9-1.3); Prothrombin Time 11.4 SECONDS (9.4-12.5)
[2025-07-18 08:54] LABS: PTT Partial Thromboplastin Tim 27 SECONDS (25.1-36.5)
[2025-07-18 08:57] LABS: Add Manual Diff / Slide Review NO; Alanine Aminotransferase 16 IU/L (<35); Albumin 5.0 g/dL (3.5-5.0); Albumin Globulin Ratio 1.2 (1.0-2.8); Alkaline Phosphatase 149 U/L (38-126); Blood Urea Nitrogen 20 mg/dL (7-17); Calcium 9.7 mg/dL (8.4-10.2); Carbon Dioxide 19 mmol/L (22-32); Chloride 103 mmol/L (98-107); Creatine Kinase 34 U/L (30-135); Estimated Glomerular Filt Rate > 60 mL/min (>60); Ethanol (ETOH) < 10 mg/dL (<10); Globulin 4.1 g/dL (1.7-4.1); Glucose 143 mg/dL (70-99); HEMOLYSIS 17 (0-50); Hematocrit 37.9 % (36-46); Hemoglobin 12.7 g/dL (12.0-16.0); Lymphocytes Absolute Auto 1800 /uL (1100-4500); Mean Corpuscular HGB Conc 33.6 % (30-36); Mean Corpuscular Hemoglobin 30.7 PG (26-34); Mean Corpuscular Volume 91.5 fL (80-100); Platelet Count 303 X10^3/uL (150-400); Potassium 4.4 mmol/L (3.4-5.1); Sodium 134 mmol/L (137-145); Total Protein 9.1 g/dL (6.3-8.2)
[2025-07-18 09:08] LABS: Troponin I < 0.012 ng/mL (0.01-0.034)
[2025-07-18 09:16] LABS: Appearance Urine UA CLEAR; Bilirubin Urine UA NEGATIVE (NEGATIVE); Color Urine UA YELLOW; Glucose Urine UA NEGATIVE (Negative); Ketones Urine UA NEGATIVE (NEGATIVE); Leukocyte Esterase Urine UA TRACE (NEGATIVE); Nitrite Urine UA NEGATIVE (Negative); Occult Blood Urine UA NEGATIVE (Negative); Protein Urine UA TRACE (Negative); Specific Gravity Urine UA 1.010 (1.000-1.035); Urobilinogen Urine UA 0.2 E.U./dL (0.2)
[2025-07-18 09:17] LABS: pH Urine UA 6.5 (4.5-8.0)
[2025-07-18 09:24] LABS: Culture Indicated Urine Cult Not Indicated
[2025-07-18] MEDS: CLOPIDOGREL 75 MG TABLET PO (11:35)
== END 2025-07-18 11:52 | disposition home or self-care (01) ==
PROVIDERS: Emergency Provider Emergency Medicine; PCP Internal Medicine
DX: R47.89 Other speech disturbances (principal); R51.9 Headache, unspecified; R35.0 Frequency of micturition
CPT/HCPCS: 36415; 70450; 70496; 70498; 80053; 80320; 81001; 82550; 82962; 84484; 85025; 85610; 85730; 93005; 93010; 99285; Q9967